=== PATIENT | male | born 1950 | race Two or more races ===

== ENCOUNTER 2017-12-09 19:13 | Inpatient (IN) | payer MEDICARE, MEDICAID ==
[~2017-12-09] VITALS: Ht 167.6 cm; Wt 73.9 kg
[~2017-12-09 19:13] MED LIST: ADALAT20 MG ORAL; ASPIRIN81 MG ORAL; ATORVASTATIN CA40 MG ORAL; ATORVASTATIN CA80 MG ORAL; BACTROBAN 2% OI15 GM TOPIC; BISACODYL5 MG ORAL; CYMBALTA20 MG ORAL; CYMBALTA60 MG ORAL; DOCUSATE SODIU100 MG ORAL; DONEPEZIL HCL10 M2 ORAL; DONEPEZIL HCL10 MG ORAL; FERROUS SULFAT325 MG ORAL; FLONASE ALLERG9.9 ML NS; HALOPERIDOL5 MG ORAL; LANTUS SOL100 UNIT/1 SUBQ; LEVAQUIN500 MG ORAL; MAGNESIUM OXID500 M1 PO; METFORMIN HCL500 M1 ORAL; METRONIDAZ500 MG/100 IVPB; METRONIDAZOLE500 MG ORAL; MULTIVITAMINS1 EAC8 ORAL; NIFEDIPINE ER60 M2 ORAL; NOVOLOG100 UNITS1 SUBQ; PROTONIX IV40 MG IV; PROTONIX20 MG ORAL; PROTONIX40 MG ORAL; QUINAPRIL HCL5 MG PO; TAMSULOSIN HCL0.4 MG ORAL; TYLENOL EXTRA500 MG ORAL; VITAMIN D-32000 UNI1 PO; VITAMIN D400 INTLU ORAL; ZOFRAN4 M3 ORAL; ZOFRAN8 MG ORAL
[2017-12-09] MEDS ORDERED: VITAMIN C500 M1 ORAL (19:29)
[2017-12-09] MEDS ORDERED: LEVEMIR FL100 UNIT/1 SUBQ (19:29)
[2017-12-09] MEDS ORDERED: QUINAPRIL HCL20 MG PO (19:29)
[2017-12-09] MEDS ORDERED: VITAMIN D1000 UNI1 ORAL (19:29)
[2017-12-09] MEDS ORDERED: METFORMIN HCL850 M1 ORAL (19:29)
[2017-12-09 20:50] LABS: BASOPHILS % (AUTO) 0.7 % (0.0-2.0); EOSINOPHILS % (AUTO) 0.9 % (0.0-3.0); HEMATOCRIT 24.7 % (42.0-52.0); HEMOGLOBIN 7.8 G/DL (14.2-18.0); MEAN CORPUSCULAR VOLUME 71 FL (80-99); MONOCYTES % (AUTO) 7.7 % (1.0-10.0); NEUTROPHILS % (AUTO) 87.7 % (45.0-75.0); PLATELET COUNT 229 K/UL (150-450); RED BLOOD COUNT 3.46 M/UL (4.70-6.10); RED CELL DISTRIBUTION WIDTH 15.9 % (11.6-14.8); WHITE BLOOD COUNT 7.1 K/UL (4.8-10.8)
[2017-12-09 20:57] LABS: ANION GAP 5 mmol/L (5-15); BLOOD UREA NITROGEN 13 mg/dL (7-18); CALCIUM 8.1 MG/DL (8.5-10.1); CARBON DIOXIDE 29 MMOL/L (21-32); CHLORIDE 100 MMOL/L (98-107); CREATININE 0.8 MG/DL (0.55-1.30); SODIUM 134 MMOL/L (136-145)
[2017-12-09 21:01] LABS: ALANINE AMINOTRANSFERASE 40 U/L (12-78); ALBUMIN 3.1 G/DL (3.4-5.0); ALBUMIN/GLOBULIN RATIO 0.9 (1.0-2.7); ALKALINE PHOSPHATASE 113 U/L (46-116); ASPARTATE AMINO TRANSFERASE 26 U/L (15-37); BILIRUBIN,TOTAL 0.3 MG/DL (0.2-1.0)
--- NOTE | 2017-12-09 21:06 | Emergency Room Report ---
History of Present Illness General Chief Complaint: Abnormal Labs Source: Medical Record Present Illness HPI 67-year-old male presents to the emergency department sent by PMD for low hemoglobin. Patient is alert however he is not familiar with why he is in the emergency department. Past medical history was obtained from nursing facility face sheet significant for hemiparalysis, Type 2 diabetes- insulin dependent, Anemia, Prostate hyperplasia, GERD and history of GI hemorrhage. Patient denies abdominal pain, blood in the stool, nausea, vomiting or recent fall. Patient reports some weakness. Denies CP, Palpitations, LOC, AMS, dizziness, Changes in Vision, or a sudden severe headache. HPI and ROS is limited due to pt. orientation status. Allergies: Coded Allergies: No Known Allergies (Unverified , 05/25/16) Patient History Limited by: medical condition Past Medical History: see triage record, old chart reviewed, DM, GI bleed Past Surgical History: none Pertinent Family History: none Reviewed Nursing Documentation: PMH: Agreed; PSxH: Agreed Nursing Documentation-PMH Past Medical History: No History, Except For Hx Hypertension: Yes Hx Diabetes: Yes - INSULIN DEPENDENT Hx Cancer: No Hx Gastrointestinal Problems: Yes - GI HEMORRHAGE; ACIDOSIS;ESOPHAGITIS Hx Neurological Problems: Yes - ENCEPHALOPATHY Hx Cerebrovascular Accident: Yes - CEREBRAL INFARCTION (HEMIPLEGIA/HEMPARESIS , LEFT SIDED) Hx Dementia: Yes Review of Systems All Other Systems: limited - limited due to pt. orientation status. Physical Exam Vital Signs Date Time Temp Pulse Resp B/P (MAP) Pulse Ox O2 Delivery O2 Flow Rate FiO2 12/09/17 19:07 97.5 108 18 106/68 98 Room Air 97.5 Sp02 EP Interpretation: reviewed, normal General Appearance: no apparent distress, alert, GCS 15, non-toxic Head: normocephalic, atraumatic Eyes: bilateral eye normal inspection, bilateral eye PERRL ENT: hearing grossly normal, normal voice Neck: full range of motion Respiratory: chest non-tender, lungs clear, normal breath sounds, no respiratory distress, no wheezing, speaking full sentences Cardiovascular #1: regular rate, rhythm, no edema, normal capillary refill Gastrointestinal: normal bowel sounds, non tender, soft Rectal: deferred Genitourinary: normal inspection Musculoskeletal: non-tender, no calf tenderness, decreased range of motion - Left UE > LE Neurologic: alert, responsive, motor strength/tone normal, speech normal - romanian speaking. will answer questions., grossly normal Psychiatric: other - impaired memory. Skin: no rash, warm/dry, other - mildly pale Medical Decision Making PA Attestation Dr. Barrios is my supervising Physician whom patient management has been discussed with. Diagnostic Impression: Primary Impression: Anemia Qualified Codes: D64.9 - Anemia, unspecified Additional Impression: DM type 2 (diabetes mellitus, type 2) Qualified Codes: E11.8 - Type 2 diabetes mellitus with unspecified complications ER Course 67-year-old male presents to the emergency department sent by PMD for low hemoglobin. Patient is alert however he is not familiar with why he is in the emergency department. Past medical history was obtained from nursing facility face sheet significant for hemiparalysis, Type 2 diabetes- insulin dependent, Anemia, Prostate hyperplasia, GERD and history of GI hemorrhage. Patient denies abdominal pain, blood in the stool, nausea, vomiting or recent fall. Patient reports some weakness. Denies CP, Palpitations, LOC, AMS, dizziness, Changes in Vision, or a sudden severe headache. Ddx considered but are not limited to Anemia, acute blood loss, hyperglycemia just to name a few PT. IS FULL CODE Vital signs: are WNL, pt. is afebrile H&PE are most consistent with - hemiparesis, NAD. mildly pale in appearance. ORDERS: -CBC: Hb/ Hct: 7.8 / 24.8 in addition to 3.4 RBC's -CMP: hyperglycemia at 280 -PT/PTT: WNL -Type and Cross: Pt. is type -B Positive ED INTERVENTIONS: - 1 Liter NS @ rate 10ml/HR - 2 units PRBC's- Verbal consent was obtained by via telephone conversation. Filter Helper was utilized in procedure risks were discussed. DISPOSITION: at this time pt. will be admitted to Dr. Morrison for Anemia with need for Emergent Blood Transfusion. Dr. Morrison agreed to admit the pt. and to continue pt. care management. Labs Test 12/09/17 20:00 White Blood Count 7.1 K/UL (4.8-10.8) Red Blood Count 3.46 M/UL (4.70-6.10) Hemoglobin 7.8 G/DL (14.2-18.0) Hematocrit 24.7 % (42.0-52.0) Mean Corpuscular Volume 71 FL (80-99) Mean Corpuscular Hemoglobin 22.7 PG (27.0-31.0) Mean Corpuscular Hemoglobin Concent 31.8 G/DL (32.0-36.0) Red Cell Distribution Width 15.9 % (11.6-14.8) Platelet Count 229 K/UL (150-450) Mean Platelet Volume 8.1 FL (6.5-10.1) Neutrophils (%) (Auto) 87.7 % (45.0-75.0) Lymphocytes (%) (Auto) 32.0 % (20.0-45.0) Monocytes (%) (Auto) 7.7 % (1.0-10.0) Eosinophils (%) (Auto) 0.9 % (0.0-3.0) Basophils (%) (Auto) 0.7 % (0.0-2.0) Prothrombin Time 10.4 SEC (9.30-11.50) Prothromb Time International Ratio 1.0 (0.9-1.1) Activated Partial Thromboplast Time 27 SEC (23-33) Sodium Level 134 MMOL/L (136-145) Potassium Level 4.0 MMOL/L (3.5-5.1) Chloride Level 100 MMOL/L (98-107) Carbon Dioxide Level 29 MMOL/L (21-32) Anion Gap 5 mmol/L (5-15) Blood Urea Nitrogen 13 mg/dL (7-18) Creatinine 0.8 MG/DL (0.55-1.30) Estimat Glomerular Filtration Rate > 60 mL/min (>60) Glucose Level 280 MG/DL (74-106) Calcium Level 8.1 MG/DL (8.5-10.1) Total Bilirubin 0.3 MG/DL (0.2-1.0) Aspartate Amino Transf (AST/SGOT) 26 U/L (15-37) Alanine Aminotransferase (ALT/SGPT) 40 U/L (12-78) Alkaline Phosphatase 113 U/L (46-116) Total Protein 6.4 G/DL (6.4-8.2) Albumin 3.1 G/DL (3.4-5.0) Globulin 3.3 g/dL Albumin/Globulin Ratio 0.9 (1.0-2.7) Last Vital Signs Date Time Temp Pulse Resp B/P (MAP) Pulse Ox O2 Delivery O2 Flow Rate FiO2 12/09/17 19:07 97.5 108 18 106/68 98 Room Air 97.5 Disposition: ADMITTED INPATIENT Condition: Serious Referrals: Ramon Rashid MD (PCP) Vanita Guerrero Dec 09, 2017 21:06
[2017-12-09 23:30] VITALS: BP 106/68
[2017-12-09 23:45] VITALS: BP 107/70
[2017-12-10] MEDS: NovoLOG Insulin Flexpen SUBQ SCH ×4 (06:30→20:53)
[2017-12-10 07:42] LABS: BASOPHILS % (AUTO) 0.8 % (0.0-2.0); HEMATOCRIT 29.9 % (42.0-52.0); HEMOGLOBIN 9.9 G/DL (14.2-18.0); LYMPHOCYTES % (AUTO) 33.4 % (20.0-45.0); MEAN CORPUSCULAR VOLUME 75 FL (80-99); MONOCYTES % (AUTO) 8.5 % (1.0-10.0); NEUTROPHILS % (AUTO) 56.3 % (45.0-75.0); PLATELET COUNT 198 K/UL (150-450); RED BLOOD COUNT 3.97 M/UL (4.70-6.10); RED CELL DISTRIBUTION WIDTH 17.9 % (11.6-14.8); WHITE BLOOD COUNT 7.8 K/UL (4.8-10.8)
[2017-12-10 08:00] VITALS: BP 114/67
[2017-12-10 12:00] VITALS: BP 126/78
[2017-12-10 16:00] VITALS: BP 122/47
[2017-12-10 20:00] VITALS: BP 124/80
--- NOTE | 2017-12-10 23:11 | General Progress Note ---
Assessment/Plan Assessment/Plan Assessment - microcytic anemia - CVA/ Contracted LUE - negative colonoscopy in 2016 Recoomentaion - Transfuse PRN - Monitor labs - check Fe - d/w family in am - EGD/Colon next week Thank you Jocelin Oscar Subjective Allergies: Coded Allergies: No Known Allergies (Unverified , 05/25/16) Objective Last 24 Hour Vital Signs Date Time Temp Pulse Resp B/P (MAP) Pulse Ox O2 Delivery O2 Flow Rate FiO2 12/10/17 20:00 97.0 89 18 124/80 98 97.0 12/10/17 19:03 88 12/10/17 16:00 106 12/10/17 16:00 97.6 102 21 122/47 98 Room Air 97.6 12/10/17 12:00 97.8 103 20 126/78 99 Room Air 97.8 12/10/17 12:00 103 12/10/17 08:00 97.2 103 19 114/67 96 Room Air 97.2 12/10/17 08:00 109 12/10/17 04:17 96 12/10/17 00:31 97.7 95 18 97.7 12/10/17 00:00 97.5 18 107/70 100 Room Air 97.5 12/09/17 23:45 97.5 106 18 107/70 100 Room Air 97.5 12/09/17 23:30 97.5 18 106/68 98 Room Air 97.5 Intake and Output 12/09/17 12/10/17 19:00 07:00 Intake Total 0 ml Balance 0 ml Intake Oral 0 ml # Voids 1 Laboratory Tests 12/10/17 06:40: White Blood Count 7.8, Red Blood Count 3.97L, Hemoglobin 9.9L, Hematocrit 29.9L , Mean Corpuscular Volume 75L, Mean Corpuscular Hemoglobin 25.0L, Mean Corpuscular Hemoglobin Concent 33.2, Red Cell Distribution Width 17.9H, Platelet Count 198, Mean Platelet Volume 6.6, Neutrophils (%) (Auto) 56.3, Lymphocytes (%) (Auto) 33.4, Monocytes (%) (Auto) 8.5, Eosinophils (%) (Auto) 1.0, Basophils (%) (Auto) 0.8 Height (Feet): 5 Height (Inches): 6.00 Weight (Pounds): 163 Objective Debilitated elderly man NCAT supple CTA RRR Soft ND NT (+) LUE constractures responsive DARYN OSCAR Dec 10, 2017 23:11
[2017-12-11] VITALS: BP 133/87
--- NOTE | 2017-12-11 03:15 | History and Physical Report ---
DATE OF ADMISSION: 12/09/2017 REASON FOR ADMISSION: Anemia. HISTORY OF PRESENT ILLNESS: The patient is a poor historian. Denies nausea, vomiting, diarrhea. Denies fever or chills. Denies abdominal pain. Denies shortness of breath. Denies cough, however, he is a poor historian. The patient was admitted for hemoglobin of 7.8. PAST MEDICAL HISTORY: History of NIDDM, history of cholangitis, history of peptic ulcer disease, history of sepsis, history of CVA as well as history of GI hemorrhage as well as history of dementia. PAST SURGICAL HISTORY: Denies. MEDICATIONS: He takes insulin. FAMILY HISTORY: Noncontributory. SOCIAL HISTORY: Poor historian. REVIEW OF SYSTEMS: Poor historian, however, denies pain. Denies shortness of breath. Denies nausea, vomiting, diarrhea, fever, chills. PHYSICAL EXAMINATION: VITAL SIGNS: Temperature 97.7, pulse is 95, blood pressure 114/67. HEENT: PERRLA. NECK: Supple. No lymphadenopathy. CHEST: Clear to auscultation. GASTROINTESTINAL: Soft, nontender, nondistended. Positive bowel sounds. No organomegaly. EXTREMITIES: No edema. LABORATORY DATA: WBC of 7.1, hemoglobin 7.8, platelets 229. Sodium 134, potassium of 4, BUN of 13, creatinine 0.8, glucose 280. ASSESSMENT AND PLAN: Severe anemia. The patient requires transfusion. I have asked Dr. Oscar to see the patient to find out why the patient is anemic, may be it is related to GI bleed. Dr. Gray has been consulted for elevated blood sugar and Dr. Patricia for the hyponatremia. We will monitor the patient closely. Ramon Rashid M.D. DR: Flavia JOB#: [id number] CC:
[2017-12-11 03:45] VITALS: BP 135/85
[2017-12-11] MEDS ORDERED: Sorbitol Solution UD 30ml ORAL ONE ×2 (06:00→18:15)
[2017-12-11] MEDS: NovoLOG Insulin Flexpen SUBQ SCH ×4 (06:25→21:09)
[2017-12-11 08:00] VITALS: BP 147/94
[2017-12-11 08:07] LABS: BASOPHILS % (AUTO) 0.6 % (0.0-2.0); EOSINOPHILS % (AUTO) 0.9 % (0.0-3.0); HEMATOCRIT 34.6 % (42.0-52.0); HEMOGLOBIN 11.4 G/DL (14.2-18.0); LYMPHOCYTES % (AUTO) 23.1 % (20.0-45.0); MEAN CORPUSCULAR VOLUME 75 FL (80-99); MONOCYTES % (AUTO) 6.8 % (1.0-10.0); NEUTROPHILS % (AUTO) 68.6 % (45.0-75.0); PLATELET COUNT 257 K/UL (150-450); RED CELL DISTRIBUTION WIDTH 17.5 % (11.6-14.8); WHITE BLOOD COUNT 7.3 K/UL (4.8-10.8)
[2017-12-11 12:00] VITALS: BP 129/85
--- NOTE | 2017-12-11 12:06 | General Progress Note ---
Assessment/Plan Problem List: (1) Diabetes mellitus out of control ICD Codes: E11.65 - Type 2 diabetes mellitus with hyperglycemia SNOMED: 915811851 (2) DM type 2 (diabetes mellitus, type 2) ICD Codes: E11.9 - Type 2 diabetes mellitus without complications SNOMED: 79116887 Qualifiers: Qualified Codes: E11.8 - Type 2 diabetes mellitus with unspecified complications (3) Anemia ICD Codes: D64.9 - Anemia, unspecified SNOMED: 428360215 Qualifiers: Qualified Codes: D64.9 - Anemia, unspecified Status: progressing Assessment/Plan anemia is improved s/p blood transfusion check h/h afebrile obs Subjective ROS Limited/Unobtainable: Yes Allergies: Coded Allergies: No Known Allergies (Unverified , 05/25/16) Objective Last 24 Hour Vital Signs Date Time Temp Pulse Resp B/P (MAP) Pulse Ox O2 Delivery O2 Flow Rate FiO2 12/11/17 08:00 97.9 78 19 147/94 98 Room Air 97.9 12/11/17 08:00 76 12/11/17 04:00 73 12/11/17 03:45 97.0 70 20 135/85 98 Room Air 97.0 12/11/17 00:00 97.0 83 18 133/87 98 Room Air 97.0 12/10/17 23:39 83 12/10/17 20:00 97.0 89 18 124/80 98 97.0 12/10/17 19:03 88 12/10/17 16:00 106 12/10/17 16:00 97.6 102 21 122/47 98 Room Air 97.6 Intake and Output 12/10/17 12/11/17 19:00 07:00 Intake Total 800 ml Output Total 1200 ml Balance -400 ml Intake Oral 800 ml Output Urine Total 1200 ml # Voids 3 2 Laboratory Tests 12/11/17 07:20: White Blood Count 7.3, Red Blood Count 4.60L, Hemoglobin 11.4L, Hematocrit 34.6L , Mean Corpuscular Volume 75L, Mean Corpuscular Hemoglobin 24.8L, Mean Corpuscular Hemoglobin Concent 33.0, Red Cell Distribution Width 17.5H, Platelet Count 257, Mean Platelet Volume 6.9, Neutrophils (%) (Auto) 68.6, Lymphocytes (%) (Auto) 23.1, Monocytes (%) (Auto) 6.8, Eosinophils (%) (Auto) 0.9, Basophils (%) (Auto) 0.6, Iron Level 33L Height (Feet): 5 Height (Inches): 6.00 Weight (Pounds): 163 General Appearance: confused Cardiovascular: normal rate Respiratory/Chest: lungs clear Ramon Rashid MD Dec 11, 2017 12:06
[2017-12-11 16:00] VITALS: BP 136/80
--- NOTE | 2017-12-11 18:04 | General Progress Note ---
Assessment/Plan Assessment/Plan Assessment - microcytic anemia - CVA/ Contracted LUE - negative colonoscopy in 2016 Recoomentaion - Transfuse PRN - Monitor labs - check Fe - d/w family in am - EGD/Colon wednesday Subjective Allergies: Coded Allergies: No Known Allergies (Unverified , 05/25/16) Subjective (+) BM with prep d/w re w/u of anemia agreed to EGD/Colon for evaluation Objective Last 24 Hour Vital Signs Date Time Temp Pulse Resp B/P (MAP) Pulse Ox O2 Delivery O2 Flow Rate FiO2 12/11/17 16:00 97.8 76 18 136/80 96 Room Air 97.8 12/11/17 12:00 85 12/11/17 12:00 98.0 72 18 129/85 97 Room Air 98.0 12/11/17 08:00 97.9 78 19 147/94 98 Room Air 97.9 12/11/17 08:00 76 12/11/17 04:00 73 12/11/17 03:45 97.0 70 20 135/85 98 Room Air 97.0 12/11/17 00:00 97.0 83 18 133/87 98 Room Air 97.0 12/10/17 23:39 83 12/10/17 20:00 97.0 89 18 124/80 98 97.0 12/10/17 19:03 88 Intake and Output 12/10/17 12/11/17 19:00 07:00 Intake Total 800 ml Output Total 1200 ml Balance -400 ml Intake Oral 800 ml Output Urine Total 1200 ml # Voids 3 2 Laboratory Tests 12/11/17 07:20: White Blood Count 7.3, Red Blood Count 4.60L, Hemoglobin 11.4L, Hematocrit 34.6L , Mean Corpuscular Volume 75L, Mean Corpuscular Hemoglobin 24.8L, Mean Corpuscular Hemoglobin Concent 33.0, Red Cell Distribution Width 17.5H, Platelet Count 257, Mean Platelet Volume 6.9, Neutrophils (%) (Auto) 68.6, Lymphocytes (%) (Auto) 23.1, Monocytes (%) (Auto) 6.8, Eosinophils (%) (Auto) 0.9, Basophils (%) (Auto) 0.6, Iron Level 33L Height (Feet): 5 Height (Inches): 6.00 Weight (Pounds): 163 Objective Debilitated elderly man NCAT supple CTA RRR Soft ND NT (+) LUE contracted responsive DARYN MAHONEY Dec 11, 2017 18:04
[2017-12-11 19:50] LABS: ANION GAP 10 mmol/L (5-15); BLOOD UREA NITROGEN 10 mg/dL (7-18); CALCIUM 8.7 MG/DL (8.5-10.1); CARBON DIOXIDE 26 MMOL/L (21-32); CHLORIDE 100 MMOL/L (98-107); CREATININE 0.9 MG/DL (0.55-1.30); POTASSIUM 3.7 MMOL/L (3.5-5.1); SODIUM 136 MMOL/L (136-145)
[2017-12-11] MEDS: D5 1/2NS w/KCL 10meq 1,000 ML IV SCH (19:58)
[2017-12-11 20:00] VITALS: BP 142/84
[2017-12-11] MEDS ORDERED: Potassium Chloride 10 MEQ in D5 1/2NS 1,000 ML IV SCH (20:00)
--- NOTE | 2017-12-11 21:30 | Consultation ---
DATE OF CONSULTATION: 12/11/2017 ENDOCRINOLOGY CONSULTATION CONSULTING PHYSICIAN: Delvis Gray M.D. REFERRING PHYSICIAN: Ramon Rashid M.D. REASON FOR CONSULTATION: Diabetes management. HISTORY OF PRESENT ILLNESS: It is important to note that history was obtained mostly from review of the chart and medical record since the patient is a poor historian. The patient is a 67-year-old male with past medical history of diabetes, CVA who was sent to the hospital by primary doctor with low hemoglobin. He had a colonoscopy in [address] Kiarra Oscar, manager field service. The patient resides in a snf facility due to hemiparalysis after the CVA. PAST MEDICAL HISTORY: 1. Type 2 diabetes. 2. Hypertension. 3. CVA. PAST SURGICAL HISTORY: None. MEDICATIONS: As an outpatient reviewed and reconciled. FAMILY HISTORY: Diabetes. SOCIAL HISTORY: Resident of a snf facility. No smoking. No alcohol. No drug use. REVIEW OF SYSTEMS: Difficult to obtain due to patient's orientation status. PHYSICAL EXAMINATION: GENERAL: The patient is awake. VITAL SIGNS: Blood pressure is 106/68, heart rate of 90, respiratory rate of 18, and temperature 97.5. HEENT: Pupils are equal and reactive to light and accommodation. Conjunctivae are pale. HEART: Regular. LUNGS: Clear. ABDOMEN: Positive bowel sounds. EXTREMITIES: No clubbing, cyanosis, or edema. LABORATORY VALUES: WBC 7, hemoglobin 11, hematocrit 34.6, and platelets 257. Sodium 134, potassium 4, chloride 100, bicarb 29, BUN 13, creatinine 0.8, and glucose of 280 on presentation. DIAGNOSES: 1. Diabetes, out of control. 2. Anemia status post transfusion. 3. History of CVA. PLAN: As an outpatient, the patient is on basal bolus insulin with Lantus and Humalog. Currently, the patient is on clear liquid diet. Blood glucose are stable in the 100 mg/dL range. I will keep the patient on sliding scale insulin without any scheduled bolus or basal insulin. Further adjustment of insulin regimen will be done according to the diet and blood glucose values. I will follow him during the hospital stay. Thank you, Dr. Rashid, for the courtesy of this consultation. Delvis Gray M.D. DR: MARSHA JOB#: [id number] CC: MIAN
[2017-12-12] VITALS: BP 143/81
[2017-12-12 04:00] VITALS: BP 128/80
[2017-12-12] MEDS: D5 1/2NS w/KCL 10meq 1,000 ML IV SCH ×2 (05:04→16:29)
[2017-12-12] MEDS: NovoLOG Insulin Flexpen SUBQ SCH ×4 (06:10→21:00)
--- NOTE | 2017-12-12 07:13 | General Progress Note ---
Assessment/Plan Problem List: (1) DM type 2 (diabetes mellitus, type 2) ICD Codes: E11.9 - Type 2 diabetes mellitus without complications SNOMED: 83142466 Qualifiers: Qualified Codes: E11.8 - Type 2 diabetes mellitus with unspecified complications (2) Anemia ICD Codes: D64.9 - Anemia, unspecified SNOMED: 825516679 Qualifiers: Qualified Codes: D64.9 - Anemia, unspecified Assessment/Plan colonoscopy and EGD is planned for tomorrow no need for basal insulin continue NISS Subjective ROS Limited/Unobtainable: Yes Allergies: Coded Allergies: No Known Allergies (Unverified , 05/25/16) Subjective events noted interval notes reviewed Objective Last 24 Hour Vital Signs Date Time Temp Pulse Resp B/P (MAP) Pulse Ox O2 Delivery O2 Flow Rate FiO2 12/12/17 04:00 97.3 64 18 128/80 96 Room Air 97.3 12/12/17 04:00 58 12/12/17 00:00 64 12/12/17 00:00 97.5 69 20 143/81 100 Room Air 97.5 12/11/17 20:00 75 12/11/17 20:00 97.0 74 20 142/84 100 Room Air 97.0 12/11/17 16:00 97.8 76 18 136/80 96 Room Air 97.8 12/11/17 16:00 70 12/11/17 12:00 85 12/11/17 12:00 98.0 72 18 129/85 97 Room Air 98.0 12/11/17 08:00 97.9 78 19 147/94 98 Room Air 97.9 12/11/17 08:00 76 Intake and Output 12/11/17 12/12/17 19:00 07:00 Intake Total 996 ml Balance 996 ml IV Total 996 ml # Voids 3 # Bowel Movements 2 Laboratory Tests 12/11/17 07:20: White Blood Count 7.3, Red Blood Count 4.60L, Hemoglobin 11.4L, Hematocrit 34.6L , Mean Corpuscular Volume 75L, Mean Corpuscular Hemoglobin 24.8L, Mean Corpuscular Hemoglobin Concent 33.0, Red Cell Distribution Width 17.5H, Platelet Count 257, Mean Platelet Volume 6.9, Neutrophils (%) (Auto) 68.6, Lymphocytes (%) (Auto) 23.1, Monocytes (%) (Auto) 6.8, Eosinophils (%) (Auto) 0.9, Basophils (%) (Auto) 0.6, Iron Level 33L 12/11/17 19:15: Sodium Level 136, Potassium Level 3.7, Chloride Level 100, Carbon Dioxide Level 26, Anion Gap 10, Blood Urea Nitrogen 10, Creatinine 0.9, Estimat Glomerular Filtration Rate > 60, Glucose Level 159H, Calcium Level 8.7, Magnesium Level 1.9 Height (Feet): 5 Height (Inches): 6.00 Weight (Pounds): 163 General Appearance: no apparent distress EENT: PERRL/EOMI Neck: normal alignment Cardiovascular: normal rate Respiratory/Chest: chest wall non-tender Abdomen: normal bowel sounds Edema: no edema noted Arm (L), no edema noted Arm (R), no edema noted Leg (L), no edema noted Leg (R), no edema noted Pedal (L), no edema noted Pedal (R), no edema noted Generalized Objective Current Medications Medications (Trade) Dose Ordered Sig/Mariza Route PRN Reason Start Time Stop Time Status Last Admin Dose Admin Acetaminophen (Tylenol) 650 mg Q4H PRN ORAL Mild Pain/Temp > 100.5 12/10/17 01:30 01/09/18 01:29 Dextrose (Dextrose 50%) STAT PRN IV Hypoglycemia 12/10/17 01:30 01/09/18 01:29 Dextrose/ Electrolytes 1,000 ml @ 100 mls/hr Q10H IV 12/11/17 19:30 01/10/18 19:29 12/12/17 05:04 Insulin Aspart (NovoLOG) BEFORE MEALS AND HS SUBQ 12/10/17 06:30 01/09/18 06:29 12/12/17 06:10 Item Value Date Time Bedside Blood Glucose 184 mg/dl H 12/12/17 0630 Bedside Blood Glucose 144 mg/dl H 12/11/17 2109 Bedside Blood Glucose 133 mg/dl H 12/11/17 1801 Bedside Blood Glucose 131 mg/dl H 12/11/17 1228 MO MERCADO 25, 2018 07:13
[2017-12-12 08:00] VITALS: BP 134/92
[2017-12-12 08:30] LABS: BASOPHILS % (AUTO) 0.6 % (0.0-2.0); EOSINOPHILS % (AUTO) 0.9 % (0.0-3.0); HEMATOCRIT 32.7 % (42.0-52.0); HEMOGLOBIN 10.9 G/DL (14.2-18.0); LYMPHOCYTES % (AUTO) 21.9 % (20.0-45.0); MEAN CORPUSCULAR VOLUME 76 FL (80-99); MONOCYTES % (AUTO) 6.9 % (1.0-10.0); NEUTROPHILS % (AUTO) 69.6 % (45.0-75.0); PLATELET COUNT 252 K/UL (150-450); RED BLOOD COUNT 4.33 M/UL (4.70-6.10); RED CELL DISTRIBUTION WIDTH 17.4 % (11.6-14.8); WHITE BLOOD COUNT 7.5 K/UL (4.8-10.8)
[2017-12-12 08:49] LABS: ALANINE AMINOTRANSFERASE 40 U/L (12-78); ALBUMIN 3.1 G/DL (3.4-5.0); ALBUMIN/GLOBULIN RATIO 0.8 (1.0-2.7); ALKALINE PHOSPHATASE 92 U/L (46-116); ANION GAP 8 mmol/L (5-15); ASPARTATE AMINO TRANSFERASE 20 U/L (15-37); BILIRUBIN,TOTAL 0.8 MG/DL (0.2-1.0); BLOOD UREA NITROGEN 6 mg/dL (7-18); CARBON DIOXIDE 26 MMOL/L (21-32); CHLORIDE 104 MMOL/L (98-107); CREATININE 0.8 MG/DL (0.55-1.30); POTASSIUM 3.8 MMOL/L (3.5-5.1); SODIUM 138 MMOL/L (136-145)
[2017-12-12] MEDS ORDERED: Tubing IV Blood Pump IV ONE (10:43)
[2017-12-12 12:00] VITALS: BP 143/92
[2017-12-12] MEDS ORDERED: Magnesium Citrate Liq Btl ORAL ONE (13:00)
[2017-12-12] MEDS ORDERED: Bisacodyl EC 5mg tab ORAL ONE (13:00)
[2017-12-12 16:00] VITALS: BP 153/81
--- NOTE | 2017-12-12 16:37 | General Progress Note ---
Assessment/Plan Assessment/Plan Assessment - microcytic anemia - CVA/ Contracted LUE - negative colonoscopy in 2016 Recoomentaion - Transfuse PRN - Monitor labs - check Fe - IVF - EGD/Colon Wednesday Subjective Allergies: Coded Allergies: No Known Allergies (Unverified , 05/25/16) Subjective on clear liquids for EGD/Colon in am No BM today yet got Mag citrate at 1330 Objective Last 24 Hour Vital Signs Date Time Temp Pulse Resp B/P (MAP) Pulse Ox O2 Delivery O2 Flow Rate FiO2 12/12/17 12:00 63 12/12/17 12:00 97.3 63 18 143/92 100 Room Air 97.3 12/12/17 08:00 67 12/12/17 08:00 98.0 68 18 134/92 98 Room Air 98.0 12/12/17 04:00 97.3 64 18 128/80 96 Room Air 97.3 12/12/17 04:00 58 12/12/17 00:00 64 12/12/17 00:00 97.5 69 20 143/81 100 Room Air 97.5 12/11/17 20:00 75 12/11/17 20:00 97.0 74 20 142/84 100 Room Air 97.0 Intake and Output 12/11/17 12/12/17 19:00 07:00 Intake Total 1096 ml Balance 1096 ml IV Total 1096 ml # Voids 3 2 # Bowel Movements 2 1 Laboratory Tests 12/11/17 19:15: Sodium Level 136, Potassium Level 3.7, Chloride Level 100, Carbon Dioxide Level 26, Anion Gap 10, Blood Urea Nitrogen 10, Creatinine 0.9, Estimat Glomerular Filtration Rate > 60, Glucose Level 159H, Calcium Level 8.7, Magnesium Level 1.9 12/12/17 08:03: Sodium Level 138, Potassium Level 3.8, Chloride Level 104, Carbon Dioxide Level 26, Anion Gap 8, Blood Urea Nitrogen 6L, Creatinine 0.8, Estimat Glomerular Filtration Rate > 60, Glucose Level 204H, Calcium Level 8.0L, White Blood Count 7.5, Red Blood Count 4.33L, Hemoglobin 10.9L, Hematocrit 32.7L, Mean Corpuscular Volume 76L, Mean Corpuscular Hemoglobin 25.0L, Mean Corpuscular Hemoglobin Concent 33.1, Red Cell Distribution Width 17.4H, Platelet Count 252, Mean Platelet Volume 6.6, Neutrophils (%) (Auto) 69.6, Lymphocytes (%) (Auto) 21.9, Monocytes (%) (Auto) 6.9, Eosinophils (%) (Auto) 0.9, Basophils (%) (Auto ) 0.6, Total Bilirubin 0.8, Aspartate Amino Transf (AST/SGOT) 20, Alanine Aminotransferase (ALT/SGPT) 40, Alkaline Phosphatase 92, Total Protein 6.8, Albumin 3.1L, Globulin 3.7, Albumin/Globulin Ratio 0.8L Height (Feet): 5 Height (Inches): 6.00 Weight (Pounds): 163 Objective Debilitated elderly man NCAT supple CTA RRR Soft ND NT (+) LUE contracted responsive DARYN MAHONEY Dec 12, 2017 16:37
[2017-12-12 20:00] VITALS: BP 125/80
--- NOTE | 2017-12-12 20:37 | General Progress Note ---
Assessment/Plan Problem List: (1) Diabetes mellitus out of control ICD Codes: E11.65 - Type 2 diabetes mellitus with hyperglycemia SNOMED: 670274874 (2) DM type 2 (diabetes mellitus, type 2) ICD Codes: E11.9 - Type 2 diabetes mellitus without complications SNOMED: 47847184 Qualifiers: Qualified Codes: E11.8 - Type 2 diabetes mellitus with unspecified complications (3) Anemia ICD Codes: D64.9 - Anemia, unspecified SNOMED: 106236405 Qualifiers: Qualified Codes: D64.9 - Anemia, unspecified Status: progressing Assessment/Plan anemia is improved s/p blood transfusion getting endoscoy in am to r/o gi source for anemia Subjective ROS Limited/Unobtainable: Yes Constitutional: Reports: no symptoms Allergies: Coded Allergies: No Known Allergies (Unverified , 05/25/16) Objective Last 24 Hour Vital Signs Date Time Temp Pulse Resp B/P (MAP) Pulse Ox O2 Delivery O2 Flow Rate FiO2 12/12/17 18:45 97.6 12/12/17 17:46 97.6 12/12/17 16:00 97.6 72 20 153/81 98 Room Air 97.6 12/12/17 16:00 69 12/12/17 12:00 63 12/12/17 12:00 97.3 63 18 143/92 100 Room Air 97.3 12/12/17 08:00 67 12/12/17 08:00 98.0 68 18 134/92 98 Room Air 98.0 12/12/17 04:00 97.3 64 18 128/80 96 Room Air 97.3 12/12/17 04:00 58 12/12/17 00:00 64 12/12/17 00:00 97.5 69 20 143/81 100 Room Air 97.5 Intake and Output 12/11/17 12/12/17 19:00 07:00 Intake Total 1096 ml Balance 1096 ml IV Total 1096 ml # Voids 3 2 # Bowel Movements 2 1 Laboratory Tests 12/12/17 08:03: White Blood Count 7.5, Red Blood Count 4.33L, Hemoglobin 10.9L, Hematocrit 32.7L , Mean Corpuscular Volume 76L, Mean Corpuscular Hemoglobin 25.0L, Mean Corpuscular Hemoglobin Concent 33.1, Red Cell Distribution Width 17.4H, Platelet Count 252, Mean Platelet Volume 6.6, Neutrophils (%) (Auto) 69.6, Lymphocytes (%) (Auto) 21.9, Monocytes (%) (Auto) 6.9, Eosinophils (%) (Auto) 0.9, Basophils (%) (Auto) 0.6, Sodium Level 138, Potassium Level 3.8, Chloride Level 104, Carbon Dioxide Level 26, Anion Gap 8, Blood Urea Nitrogen 6L, Creatinine 0.8, Estimat Glomerular Filtration Rate > 60, Glucose Level 204H, Calcium Level 8.0L, Total Bilirubin 0.8, Aspartate Amino Transf (AST/SGOT) 20, Alanine Aminotransferase (ALT/SGPT) 40, Alkaline Phosphatase 92, Total Protein 6.8, Albumin 3.1L, Globulin 3.7, Albumin/Globulin Ratio 0.8L Height (Feet): 5 Height (Inches): 6.00 Weight (Pounds): 163 Cardiovascular: normal rate Respiratory/Chest: lungs clear Abdomen: soft Ramon Rashid MD Dec 12, 2017 20:37
[2017-12-13] VITALS (8 sets, daily range): BP systolic 126–160; BP diastolic 75–91
[2017-12-13] MEDS: D5 1/2NS w/KCL 10meq 1,000 ML IV SCH ×2 (03:12→11:30)
[2017-12-13] MEDS: NovoLOG Insulin Flexpen SUBQ SCH ×2 (06:30→12:09)
--- NOTE | 2017-12-13 08:19 | Anethesia Preoperative Eval ---
Anesthesia Pre-op PMH/ROS General Date of Evaluation: Dec 13, 2017 Time of Evaluation: 08:17 Anesthesiologist: tra ASA Score: ASA 3 Mallampati Score Class I : Soft palate, uvula, fauces, pillars visible Class II: Soft palate, uvula, fauces visible Class III: Soft palate, base of uvula visible Class IV: Only hard plate visible Mallampati Classification: Class II Surgeon: mumtaz Diagnosis: anemia Surgical Procedure: egd/colonoscopy Anesthesia History: none Social History: smoking - former smoker Family History: no anesthesia problems Allergies: Coded Allergies: No Known Allergies (Unverified , 05/25/16) Medications: see eMAR Past Medical History Cardiovascular: Reports: HTN Gastrointestinal/Genitourinary: Reports: GERD Neurologic/Psychiatric: Reports: CVA, depression/anxiety Endocrine: Reports: DM Hematology/Immune: Reports: anemia Anesthesia Pre-op Phys. Exam Physician Exam Last Vital Signs Date Time Temp Pulse Resp B/P (MAP) Pulse Ox O2 Delivery O2 Flow Rate FiO2 12/13/17 04:00 62 12/13/17 04:00 97.0 20 153/91 97 Room Air 97.0 Constitutional: NAD Neurologic: CN 2-12 intact Cardiovascular: RRR Respiratory: CTA Gastrointestinal: S/NT/ND Airway Exam Mallampati Score: Class II MO: full Neck: supple TMD: 2fb ROM: limited Anesthesia Pre-op A/P Risk Assessment & Plan Assessment: asa3 Plan: mac Status Change Before Surgery: No Pre-Antibiotics Drug: DHARMESH Yanes Dec 13, 2017 08:19
[2017-12-13] MEDS ORDERED: Midazolam 2mg/2ml Inj IVP PRN (08:30)
[2017-12-13] MEDS ORDERED: DiphenhydrAMINE 50mg/ml Inj IVP PRN (08:30)
[2017-12-13] MEDS ORDERED: Atropine Inj 1mg/10ml Syr IV PRN (08:30)
[2017-12-13] MEDS ORDERED: fentaNYL 100 mcg/2 mL IV PRN (08:30)
[2017-12-13] MEDS ORDERED: MULTIVITAMINS1 EAC8 ORAL (09:28)
[2017-12-13] MEDS ORDERED: PROTONIX40 MG ORAL (09:28)
[2017-12-13] MEDS ORDERED: ADALAT20 MG ORAL (09:28)
[2017-12-13] MEDS ORDERED: ATORVASTATIN CA40 MG ORAL (09:28)
[2017-12-13] MEDS ORDERED: TAMSULOSIN HCL0.4 MG ORAL (09:28)
[2017-12-13] MEDS ORDERED: QUINAPRIL HCL20 MG PO (09:28)
[2017-12-13] MEDS ORDERED: CYMBALTA20 MG ORAL (09:28)
[2017-12-13] MEDS ORDERED: DONEPEZIL HCL10 MG ORAL (09:28)
[2017-12-13] MEDS ORDERED: VITAMIN C500 M1 ORAL (09:28)
[2017-12-13] MEDS ORDERED: ASPIRIN-LOW81 MG ORAL (09:28)
[2017-12-13] MEDS ORDERED: VITAMIN D400 INTLU ORAL (09:28)
[2017-12-13] MEDS ORDERED: METFORMIN HCL850 M1 ORAL (09:28)
[2017-12-13] MEDS ORDERED: FERROUS SULFAT325 MG ORAL (09:28)
[2017-12-13] MEDS ORDERED: DOCUSATE SODIU100 MG ORAL (09:28)
[2017-12-13] MEDS ORDERED: LEVEMIR100 UNIT/1 SUBQ ×2 (09:28)
[2017-12-13] MEDS ORDERED: BISACODYL5 MG ORAL (09:28)
[2017-12-13] MEDS ORDERED: Propofol 200mg/20ml IV ONE (10:00)
[2017-12-13] MEDS ORDERED: Lidocaine 1% MPF 10mg/ml 5ml ONE (10:00)
--- NOTE | 2017-12-13 10:37 | Pre-Procedure Note/Attestation ---
Pre-Procedure Note/Attestation Complete Prior to Procedure Planned Procedure: not applicable Procedure Narrative: EGD/Colon Indications for Procedure Pre-Operative Diagnosis: Anemia Attestation I attest that I discussed the nature of the procedure; its benefits; risks and complications; and alternatives (and the risks and benefits of such alternatives ), prior to the procedure, with the patient (or the patient's legal business office representative). I attest that, if there was a reasonable possibility of needing a blood transfusion, the patient (or the patient's legal business office representative) was given the [facility] standardized written summary, pursuant to the José Nike[employer] Blood Safety Act ([place] Health and Safety Code # 1645, as amended). I attest that I re-evaluated the patient just prior to the surgery and that there has been no change in the patient's H&P, except as documented below: DARYN MAHONEY Dec 13, 2017 10:37
[2017-12-13] MEDS ORDERED: NS 500ML IV ONE (10:38)
--- NOTE | 2017-12-13 11:43 | Immediate Post-Op Evaluation ---
Immediate Post-Op Evalulation Immediate Post-Op Evalulation Procedure: egd/colonoscopy Date of Evaluation: Dec 13, 2017 Time of Evaluation: 11:37 IV Fluids: 250ml 0.9ns Blood Products: none Estimated Blood Loss: negligible Blood Pressure Systolic: 127 Blood Pressure Diastolic: 76 Pulse Rate: 53 Respiratory Rate: 18 O2 Sat by Pulse Oximetry: 100 Temperature (Fahrenheit): 97.0 Pain Score (1-10): 0 Nausea: No Vomiting: No Complications none Patient Status: awake, reacts, patent Hydration Status: adequate Drug: DHARMESH Yanes Dec 13, 2017 11:43
--- NOTE | 2017-12-13 11:44 | 48 Hour Post Anesthesia Eval ---
Post Anesthesia Evaluation Procedure: egd/colonoscopy Date of Evaluation: Dec 13, 2017 Time of Evaluation: 11:43 Blood Pressure Systolic: 125 0: 77 Pulse Rate: 56 Respiratory Rate: 18 Temperature (Fahrenheit): 97.0 O2 Sat by Pulse Oximetry: 100 Airway: patent Nausea: No Vomiting: No Pain Intensity: 0 Hydration Status: adequate Cardiopulmonary Status: stable Mental Status/LOC: patient returned to baseline Post-Anesthesia Complications: none Follow-up care needed: N/A DHARMESH KUHN Dec 13, 2017 11:44
--- NOTE | 2017-12-13 13:14 | General Progress Note ---
Assessment/Plan Problem List: (1) Diabetes mellitus out of control ICD Codes: E11.65 - Type 2 diabetes mellitus with hyperglycemia SNOMED: 433189283 (2) DM type 2 (diabetes mellitus, type 2) ICD Codes: E11.9 - Type 2 diabetes mellitus without complications SNOMED: 60670120 Qualifiers: Qualified Codes: E11.8 - Type 2 diabetes mellitus with unspecified complications (3) Anemia ICD Codes: D64.9 - Anemia, unspecified SNOMED: 381395195 Qualifiers: Qualified Codes: D64.9 - Anemia, unspecified Status: progressing Assessment/Plan anemia is improved s/p blood transfusion s/p endoscopy cleared by gi for dc Subjective ROS Limited/Unobtainable: Yes Constitutional: Reports: no symptoms Allergies: Coded Allergies: No Known Allergies (Unverified , 05/25/16) Objective Last 24 Hour Vital Signs Date Time Temp Pulse Resp B/P (MAP) Pulse Ox O2 Delivery O2 Flow Rate FiO2 12/13/17 12:00 97.0 59 18 126/75 98 97.0 12/13/17 11:50 97.8 58 17 144/77 100 Nasal Cannula 3.0 97.8 12/13/17 11:44 206.6 56 18 100 12/13/17 11:43 206.6 53 18 100 12/13/17 11:35 52 16 142/77 100 Nasal Cannula 3.0 12/13/17 11:30 60 15 155/89 100 Nasal Cannula 3.0 12/13/17 11:25 97.0 55 14 127/76 100 Nasal Cannula 3.0 97.0 12/13/17 08:00 97.7 64 19 160/90 99 97.7 12/13/17 07:58 60 12/13/17 04:00 62 12/13/17 04:00 97.0 65 20 153/91 97 Room Air 97.0 12/13/17 00:00 97.2 66 20 133/77 98 Room Air 97.2 12/13/17 00:00 62 12/12/17 20:00 97.0 64 20 125/80 99 Room Air 97.0 12/12/17 20:00 62 12/12/17 18:45 97.6 12/12/17 17:46 97.6 12/12/17 16:00 97.6 72 20 153/81 98 Room Air 97.6 3/25/18 16:00 69 Intake and Output 12/12/17 12/13/17 19:00 07:00 Intake Total 1280 ml 1100 ml Balance 1280 ml 1100 ml Intake Oral 1080 ml IV Total 200 ml 1100 ml # Voids 4 2 # Bowel Movements 3 1 Laboratory Tests 12/12/17 17:50: Stool Occult Blood Positive 12/13/17 12:50: Iron Level [Pending], Unsaturated Iron Binding [Pending], Ferritin [Pending] Height (Feet): 5 Height (Inches): 6.00 Weight (Pounds): 163 Cardiovascular: normal rate Respiratory/Chest: lungs clear Ramon Rashid MD Dec 13, 2017 13:14
--- NOTE | 2017-12-13 13:26 | General Progress Note ---
Assessment/Plan Problem List: (1) DM type 2 (diabetes mellitus, type 2) ICD Codes: E11.9 - Type 2 diabetes mellitus without complications SNOMED: 95771533 Qualifiers: Qualified Codes: E11.8 - Type 2 diabetes mellitus with unspecified complications (2) Anemia ICD Codes: D64.9 - Anemia, unspecified SNOMED: 158882329 Qualifiers: Qualified Codes: D64.9 - Anemia, unspecified Assessment/Plan no need for basal insulin yet continue NISS Subjective ROS Limited/Unobtainable: Yes Allergies: Coded Allergies: No Known Allergies (Unverified , 05/25/16) Subjective events noted interval notes reviewed Objective Last 24 Hour Vital Signs Date Time Temp Pulse Resp B/P (MAP) Pulse Ox O2 Delivery O2 Flow Rate FiO2 12/13/17 12:00 97.0 59 18 126/75 98 97.0 12/13/17 11:50 97.8 58 17 144/77 100 Nasal Cannula 3.0 97.8 12/13/17 11:44 206.6 56 18 100 12/13/17 11:43 206.6 53 18 100 12/13/17 11:35 52 16 142/77 100 Nasal Cannula 3.0 12/13/17 11:30 60 15 155/89 100 Nasal Cannula 3.0 12/13/17 11:25 97.0 55 14 127/76 100 Nasal Cannula 3.0 97.0 12/13/17 08:00 97.7 64 19 160/90 99 97.7 12/13/17 07:58 60 12/13/17 04:00 62 12/13/17 04:00 97.0 65 20 153/91 97 Room Air 97.0 12/13/17 00:00 97.2 66 20 133/77 98 Room Air 97.2 12/13/17 00:00 62 12/12/17 20:00 97.0 64 20 125/80 99 Room Air 97.0 12/12/17 20:00 62 12/12/17 18:45 97.6 12/12/17 17:46 97.6 12/12/17 16:00 97.6 72 20 153/81 98 Room Air 97.6 12/12/17 16:00 69 Intake and Output 12/12/17 12/13/17 19:00 07:00 Intake Total 1280 ml 1100 ml Balance 1280 ml 1100 ml Intake Oral 1080 ml IV Total 200 ml 1100 ml # Voids 4 2 # Bowel Movements 3 1 Laboratory Tests 12/12/17 17:50: Stool Occult Blood Positive 12/13/17 12:50: Iron Level [Pending], Unsaturated Iron Binding [Pending], Ferritin [Pending] Height (Feet): 5 Height (Inches): 6.00 Weight (Pounds): 163 General Appearance: no apparent distress Neck: normal alignment Cardiovascular: normal rate Respiratory/Chest: lungs clear Abdomen: normal bowel sounds Edema: no edema noted Arm (L), no edema noted Arm (R), no edema noted Leg (L), no edema noted Leg (R), no edema noted Pedal (L), no edema noted Pedal (R), no edema noted Generalized Objective Current Medications Medications (Trade) Dose Ordered Sig/Mariza Route PRN Reason Start Time Stop Time Status Last Admin Dose Admin Acetaminophen (Tylenol) 650 mg Q4H PRN ORAL Mild Pain/Temp > 100.5 12/10/17 01:30 01/09/18 01:29 12/12/17 17:46 Al Hydroxide/Mg Hydroxide (Mylanta) 15 ml Q1H PRN ORAL gi upset 12/13/17 08:30 12/13/17 15:00 Atropine Sulfate (Atropine) 0.5 mg Q5M PRN IV bpm less than 45 12/13/17 08:30 12/13/17 15:00 Dextrose (Dextrose 50%) STAT PRN IV Hypoglycemia 12/10/17 01:30 01/09/18 01:29 Dextrose/ Electrolytes 1,000 ml @ 100 mls/hr Q10H IV 12/11/17 19:30 01/10/18 19:29 12/13/17 03:12 Diphenhydramine HCl (Benadryl) 25 mg Q15M PRN IVP Itching 12/13/17 08:30 12/13/17 15:00 Divalproex Sodium (Depakote) 250 mg TID ORAL 12/12/17 18:00 01/11/18 17:59 12/12/17 17:46 Fentanyl Citrate (Sublimaze 100 mcg/2 mL) 25 mcg Q10M PRN IV Moderate Pain (Pain Scale 4-6) 12/13/17 08:30 12/13/17 15:00 Ferrous Sulfate (Feosol) 325 mg DAILY ORAL 12/14/17 09:00 01/13/18 08:59 Hydralazine HCl (Apresoline) 5 mg Q30M PRN IV SBP>160 OR___/DBP>90 OR___ 12/13/17 08:30 12/13/17 15:00 Insulin Aspart (NovoLOG) BEFORE MEALS AND HS SUBQ 12/10/17 06:30 01/09/18 06:29 12/13/17 12:09 Midazolam HCl (Versed 2mg/2ml vial) 1 mg Q15M PRN IVP For Anxiety 12/13/17 08:30 12/13/17 15:00 Ondansetron HCl (Zofran) 4 mg Q1H PRN IVP Nausea & Vomiting 12/13/17 08:30 12/13/17 15:00 Pantoprazole (Protonix) 40 mg DAILY ORAL 12/14/17 09:00 01/13/18 08:59 Item Value Date Time Bedside Blood Glucose 142 mg/dl H 12/13/17 1209 Bedside Blood Glucose 150 mg/dl H 12/13/17 0630 Bedside Blood Glucose 172 mg/dl H 12/12/17 2100 Bedside Blood Glucose 95 mg/dl 12/12/17 1630 Bedside Blood Glucose 195 mg/dl H 12/12/17 1222 MO MERCADO 26, 2018 13:26
[2017-12-13 13:40] LABS: IRON 20 ug/dL (50-175); TOTAL IRON BINDING CAPACITY 308 ug/dL (250-450)
[2017-12-13 13:41] LABS: % IRON SATURATION 6 % (15-50)
[2017-12-13 13:54] LABS: FERRITIN 12 NG/ML (8-388)
--- NOTE | 2017-12-13 22:08 | Brief Operative Note ---
Immediate Post Operative Note Operative Note Chief Complaint: anemia Pre-op Diagnosis: Anemia Procedure: EGD/bc, colon Post-op Diagnosis: HH, mild RAQUEL, normal colon bx duoden Surgeon: mumtaz Anesthesiologist: geno padilla Anesthesia: MAC Specimen: yes Complications: none Condition: stable Fluids: recorded Estimated Blood Loss: none Drains: none Implant(s) used?: No DARYN MAHONEY Dec 13, 2017 22:08
--- NOTE | 2017-12-13 22:10 | Endoscopy Procedure Note ---
Endoscopy Procedure Note General Indication for Procedure: anemia Procedures Performed: EGD, colonoscopy Operative Findings/Diagnosis: HH, mild RAQUEL, normal colon bx duoden Specimen: yes Pt Tolerated Procedure Well: Yes Estimated Blood Loss: none Anesthesia Anesthesiologist: geno padilla Anesthesia: MAC Medications Medication Given: see anesthesia record Inserted Devices Implant(s) used?: No GI Core Measures 50 yrs or older w/o bx or poly: Not Applicable 10yrs. F/U not recommended: Not Applicable If not recommended, why?: DARYN MAHONEY Dec 13, 2017 22:10
--- NOTE | 2017-12-13 22:21 | Consultation ---
History of Present Illness General Date patient seen: Dec 11, 2017 Chief Complaint: Abnormal Labs Present Illness HPI 67-year-old male presents to the emergency department sent by PMD for low hemoglobin. the pt was agitated and confused. not able to provide hx Allergies: Coded Allergies: No Known Allergies (Unverified , 05/25/16) Medication History Scheduled Ascorbic Acid* (Vitamin C*), 500 MG ORAL DAILY, (Reported) Aspirin (Aspirin EC), 81 MG ORAL DAILY, (Reported) Atorvastatin Calcium* (Atorvastatin Calcium*), 80 MG ORAL DAILY, (Reported) Docusate Sodium* (Docusate Sodium*), 100 MG ORAL Q12HR, (Reported) Donepezil Hcl* (Donepezil Hcl*), 10 MG ORAL QHS, (Reported) Duloxetine (Cymbalta), 80 MG ORAL DAILY, (Reported) Ferrous Sulfate* (Ferrous Sulfate*), 325 MG ORAL DAILY, (Reported) Insulin Detemir (Levemir), 14 UNITS SUBQ DAILY, (Reported) Insulin Detemir (Levemir), 30 UNITS SUBQ BEDTIME, (Reported) Metformin Hcl* (Metformin Hcl*), 850 MG ORAL BID, (Reported) Multivitamin With Minerals (Multivitamins With Minerals*), 1 TAB ORAL DAILY, ( Reported) Nifedipine (Nifedipine*), 60 MG ORAL EVERY 8 HOURS, (Reported) Pantoprazole* (Protonix*), 40 MG ORAL DAILY, (Reported) Quinapril Hcl (Quinapril Hcl), 20 MG PO BID, (Reported) Tamsulosin Hcl (Tamsulosin Hcl*), 0.4 MG ORAL DAILY, (Reported) Vitamin D (Vitamin D3), 1,000 UNITS ORAL DAILY, (Reported) Scheduled PRN Bisacodyl* (Dulcolax*), 5 MG ORAL DAILY PRN for Constipation, (Reported) Discontinued Medications Acetaminophen* (Tylenol Extra Strength*), 500 MG ORAL Q4HR PRN for Mild Pain/ Temp > 100.5, (Reported) Discontinued Reason: MD discontinued med Ascorbic Acid* (Vitamin C*), 500 MG ORAL DAILY, (Reported) Discontinued Reason: MD discontinued med Aspirin* (Aspirin*), 81 MG ORAL DAILY, (Reported) Discontinued Reason: MD discontinued med Atorvastatin Calcium* (Atorvastatin Calcium*), 80 MG ORAL BEDTIME, (Reported) Discontinued Reason: MD discontinued med Bisacodyl* (Dulcolax*), 5 MG ORAL DAILY, (Reported) Discontinued Reason: MD discontinued med Cholecalciferol (Vitamin D3)* (Vitamin D*), 1,000 UNIT ORAL DAILY, (Reported) Discontinued Reason: MD discontinued med Docusate Sodium* (Docusate Sodium*), 100 MG ORAL TWICE A DAY, (Reported) Discontinued Reason: MD discontinued med Donepezil Hcl* (Donepezil Hcl*), 10 MG ORAL QHS, (Reported) Discontinued Reason: MD discontinued med Duloxetine Hcl* (Cymbalta*), 80 MG ORAL DAILY, (Reported) Discontinued Reason: MD discontinued med Ferrous Sulfate* (Ferrous Sulfate*), 325 MG ORAL DAILY, (Reported) Discontinued Reason: MD discontinued med Fluticasone Propionate (Flonase Allergy Relief), 9.9 ML NS DAILY, (Reported) Discontinued Reason: MD discontinued med Insulin Aspart (Novolog Flexpen), SUBQ AC+HS PRN for Per rx protocol, (Reported) Discontinued Reason: MD discontinued med Insulin Detemir (Levemir Flexpen), 0 SUBQ, (Reported) Discontinued Reason: MD discontinued med Insulin Glargine (Lantus), 12 UNITS SUBQ BEDTIME, (Reported) Discontinued Reason: MD discontinued med Levofloxacin* (Levaquin*), 500 MG ORAL DAILY, (Reported) Discontinued Reason: MD discontinued med Metformin Hcl* (Metformin Hcl*), 500 MG ORAL TWICE A DAY, (Reported) Discontinued Reason: MD discontinued med Metformin Hcl* (Metformin Hcl*), 850 MG ORAL BID, (Reported) Discontinued Reason: MD discontinued med Metronidazole* (Flagyl*), 500 MG ORAL THREE TIMES A DAY, (Reported) Discontinued Reason: MD discontinued med Multivitamin With Minerals (Multivitamins With Minerals*), 1 TAB ORAL DAILY, ( Reported) Discontinued Reason: MD discontinued med Mupirocin (Mupirocin), 1 APPLIC TOPIC THREE TIMES A DAY, (Reported) Discontinued Reason: MD discontinued med Nifedipine (Nifedipine*), 60 MG ORAL DAILY, (Reported) Discontinued Reason: MD discontinued med Ondansetron Hcl* (Zofran*), 4 MG ORAL EVERY 8 HOURS PRN for Nausea & Vomiting, ( Reported) Discontinued Reason: MD discontinued med Pantoprazole* (Protonix*), 40 MG ORAL DAILY, (Reported) Discontinued Reason: MD discontinued med Quinapril Hcl (Quinapril Hcl), 5 MG PO BID, (Reported) Discontinued Reason: MD discontinued med Quinapril Hcl (Quinapril Hcl), 5 MG PO BID, (Reported) Discontinued Reason: MD discontinued med Quinapril Hcl (Quinapril Hcl), 20 MG PO BID, (Reported) Discontinued Reason: MD discontinued med Tamsulosin Hcl (Tamsulosin Hcl*), 0.4 MG ORAL BEDTIME, (Reported) Discontinued Reason: MD discontinued med Vitamin D (Vitamin D3), 2,000 UNITS ORAL DAILY, (Reported) Discontinued Reason: MD discontinued med Patient History Limited by: medical condition History Provided By: Patient, Medical Record, PMD Healthcare decision maker Resuscitation status Full Code Advanced Directive on File No Past Medical/Surgical History Past Medical/Surgical History: (1) Sepsis (2) Peptic ulcer disease (3) Anemia due to acute blood loss (4) Coffee ground emesis (5) Leukocytosis (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) (8) Cholangitis due to bile duct calculus with obstruction (9) Diabetes mellitus out of control Review of Systems Psychiatric: Reports: prior hx, anxiety, depressed feelings Physical Exam General Appearance: no apparent distress, alert, confused, agitated Last 24 Hour Vital Signs Date Time Temp Pulse Resp B/P (MAP) Pulse Ox O2 Delivery O2 Flow Rate FiO2 12/13/17 12:00 97.0 59 18 126/75 98 97.0 12/13/17 11:50 97.8 58 17 144/77 100 Nasal Cannula 3.0 97.8 12/13/17 11:44 206.6 56 18 100 12/13/17 11:43 206.6 53 18 100 12/13/17 11:35 52 16 142/77 100 Nasal Cannula 3.0 12/13/17 11:30 60 15 155/89 100 Nasal Cannula 3.0 12/13/17 11:25 97.0 55 14 127/76 100 Nasal Cannula 3.0 97.0 12/13/17 08:00 97.7 64 19 160/90 99 97.7 12/13/17 07:58 60 12/13/17 04:00 62 12/13/17 04:00 97.0 65 20 153/91 97 Room Air 97.0 12/13/17 00:00 97.2 66 20 133/77 98 Room Air 97.2 12/13/17 00:00 62 Intake and Output 12/12/17 12/13/17 19:00 07:00 Intake Total 1280 ml 1100 ml Balance 1280 ml 1100 ml Intake Oral 1080 ml IV Total 200 ml 1100 ml # Voids 4 2 # Bowel Movements 3 1 Laboratory Tests Test 12/13/17 12:50 Iron Level 20 ug/dL (50-175) L Total Iron Binding Capacity 308 ug/dL (250-450) Percent Iron Saturation 6 % (15-50) L Unsaturated Iron Binding 288 ug/dL (112-346) Ferritin 12 NG/ML (8-388) Height (Feet): 5 Height (Inches): 6.00 Weight (Pounds): 163 Assessment/Plan Status: unchanged Assessment/Plan encephalopathy agitation depakote 250mg tid Olivia Ortega M.D. Dec 13, 2017 22:21
--- NOTE | 2017-12-13 22:31 | General Progress Note ---
Assessment/Plan Status: unchanged Assessment/Plan encephalopathy agitation depakote 250mg tid Subjective Date patient seen: Dec 12, 2017 Neurologic/Psychiatric: Reports: anxiety, depressed, emotional problems Allergies: Coded Allergies: No Known Allergies (Unverified , 05/25/16) Objective Last 24 Hour Vital Signs Date Time Temp Pulse Resp B/P (MAP) Pulse Ox O2 Delivery O2 Flow Rate FiO2 12/13/17 12:00 97.0 59 18 126/75 98 97.0 12/13/17 11:50 97.8 58 17 144/77 100 Nasal Cannula 3.0 97.8 12/13/17 11:44 206.6 56 18 100 12/13/17 11:43 206.6 53 18 100 12/13/17 11:35 52 16 142/77 100 Nasal Cannula 3.0 12/13/17 11:30 60 15 155/89 100 Nasal Cannula 3.0 12/13/17 11:25 97.0 55 14 127/76 100 Nasal Cannula 3.0 97.0 12/13/17 08:00 97.7 64 19 160/90 99 97.7 12/13/17 07:58 60 12/13/17 04:00 62 12/13/17 04:00 97.0 65 20 153/91 97 Room Air 97.0 12/13/17 00:00 97.2 66 20 133/77 98 Room Air 97.2 12/13/17 00:00 62 Intake and Output 12/12/17 12/13/17 19:00 07:00 Intake Total 1280 ml 1100 ml Balance 1280 ml 1100 ml Intake Oral 1080 ml IV Total 200 ml 1100 ml # Voids 4 2 # Bowel Movements 3 1 Laboratory Tests 12/13/17 12:50: Iron Level 20L, Total Iron Binding Capacity 308, Percent Iron Saturation 6L, Unsaturated Iron Binding 288, Ferritin 12 Height (Feet): 5 Height (Inches): 6.00 Weight (Pounds): 163 General Appearance: alert, confused, agitated, combative Olivia Ortega M.D. Dec 13, 2017 22:31
--- NOTE | 2017-12-13 22:32 | General Progress Note ---
Assessment/Plan Status: stable, progressing Assessment/Plan encephalopathy agitation depakote 250mg tid Subjective Date patient seen: Dec 13, 2017 Neurologic/Psychiatric: Reports: anxiety, depressed, emotional problems Allergies: Coded Allergies: No Known Allergies (Unverified , 05/25/16) Objective Last 24 Hour Vital Signs Date Time Temp Pulse Resp B/P (MAP) Pulse Ox O2 Delivery O2 Flow Rate FiO2 12/13/17 12:00 97.0 59 18 126/75 98 97.0 12/13/17 11:50 97.8 58 17 144/77 100 Nasal Cannula 3.0 97.8 12/13/17 11:44 206.6 56 18 100 12/13/17 11:43 206.6 53 18 100 12/13/17 11:35 52 16 142/77 100 Nasal Cannula 3.0 12/13/17 11:30 60 15 155/89 100 Nasal Cannula 3.0 12/13/17 11:25 97.0 55 14 127/76 100 Nasal Cannula 3.0 97.0 12/13/17 08:00 97.7 64 19 160/90 99 97.7 12/13/17 07:58 60 12/13/17 04:00 62 12/13/17 04:00 97.0 65 20 153/91 97 Room Air 97.0 12/13/17 00:00 97.2 66 20 133/77 98 Room Air 97.2 12/13/17 00:00 62 Intake and Output 12/12/17 12/13/17 19:00 07:00 Intake Total 1280 ml 1100 ml Balance 1280 ml 1100 ml Intake Oral 1080 ml IV Total 200 ml 1100 ml # Voids 4 2 # Bowel Movements 3 1 Laboratory Tests 12/13/17 12:50: Iron Level 20L, Total Iron Binding Capacity 308, Percent Iron Saturation 6L, Unsaturated Iron Binding 288, Ferritin 12 Height (Feet): 5 Height (Inches): 6.00 Weight (Pounds): 163 General Appearance: no apparent distress, alert, confused, agitated Olivia Ortega M.D. Dec 13, 2017 22:32
--- NOTE | 2017-12-14 17:30 | Procedure Note ---
DATE OF PROCEDURE: 12/13/2017 NOTE: POOR AUDIO GASTROENTEROLOGY PROCEDURE REPORT PROCEDURE: Upper gastrointestinal endoscopy with biopsy as well as colonoscopy. SURGEON: Kiarra Oscar M.D. ANESTHESIA: Please see the separate anesthesiologist notes for details. PRE-ENDOSCOPIC DIAGNOSIS: Progressive anemia. POST-ENDOSCOPIC DIAGNOSES: 1. A 3 to 4 cm hiatal hernia. 2. Lower esophageal reflux erosions consistent with gastroesophageal reflux. 3. Normal colonoscopy including 10 cm of terminal ileum, although visualization was somewhat suboptimal. DESCRIPTION OF PROCEDURE: The procedure, its risks, indications, alternatives, and possible complications were explained to the patient's and informed consent was obtained. The patient was then sedated in the left lateral decubitus position. A diagnostic upper endoscope was introduced into the oropharynx and advanced to the duodenum. The endoscope was then gradually withdrawn. The rectal exam was done and the colonoscope was introduced in the rectum and advanced to the terminal ileum. The examination of the colonic mucosa was hampered by small clumps of solid stools throughout the colon, especially on the right side. Large mass lesions could be ruled out, but smaller lesions can escape evaluation. Evaluation of the upper gastrointestinal mucosa revealed a 4 cm hiatal hernia with some reflux related erosions and the colonoscopy and terminal ileum evaluation did not show any abnormalities. The patient was sent to recovery in good condition. COMPLICATIONS: None. ASSESSMENT: This examination was notable for some degree of gastroesophageal reflux associated with hiatal hernia. Occasionally, large hiatal hernias could result in long-term reflux and that could be the possibility in this case. An outpatient capsule endoscopy should be done to evaluate the small bowel for any other pathology such as arteriovenous malformations of the small intestine. RECOMMENDATIONS: 1. Resume oral diet. 2. Long-term proton pump inhibitor. 3. Iron daily. 4. Outpatient capsule endoscopy. Thank you for asking me to participate in the care of this patient. Kiarra Oscar M.D. DR: Echo JOB#: [id number] CC: MIAN
--- NOTE | 2017-12-16 07:53 | Discharge Summary ---
Discharge Summary Hospital Course Date of Admission Dec 09, 2017 at 21:01 Date of Discharge Dec 13, 2017 at 15:38 Admitting Diagnosis ANEMIA HPI Manjit Wilkerson is a 67 year old male who was admitted on Dec 09, 2017 at 21:01 for Anemia Hospital Course dc summary # [id number] Discharge Medications Continued Medications: Ascorbic Acid* (Vitamin C*) 500 Mg Tablet 500 MG ORAL DAILY, #30 TAB 0 Refills (This prescription has been renewed) Aspirin (Aspirin EC) 81 Mg Tablet.dr 81 MG ORAL DAILY, TAB (This prescription has been renewed) Atorvastatin Calcium* (Atorvastatin Calcium*) 40 Mg Tablet 80 MG ORAL DAILY, TAB (This prescription has been renewed) Bisacodyl* (Dulcolax*) 5 Mg Tablet.dr 5 MG ORAL DAILY PRN for Constipation, #10 TAB 0 Refills (This prescription has been renewed) Docusate Sodium* (Docusate Sodium*) 100 Mg Capsule 100 MG ORAL Q12HR, CAP (This prescription has been renewed) Donepezil Hcl* (Donepezil Hcl*) 10 Mg Tablet 10 MG ORAL QHS, TAB (This prescription has been renewed) Duloxetine (Cymbalta) 20 Mg Capsule.dr 80 MG ORAL DAILY, CAP (This prescription has been renewed) Ferrous Sulfate* (Ferrous Sulfate*) 325 Mg Tablet 325 MG ORAL DAILY, #30 TAB 0 Refills (This prescription has been renewed) Insulin Detemir (Levemir) 100 Unit/1 Ml Vial 14 UNITS SUBQ DAILY, VIAL (This prescription has been renewed) Insulin Detemir (Levemir) 100 Unit/1 Ml Vial 30 UNITS SUBQ BEDTIME, VIAL (This prescription has been renewed) Metformin Hcl* (Metformin Hcl*) 850 Mg Tablet 850 MG ORAL BID, TAB (This prescription has been renewed) Multivitamin With Minerals (Multivitamins With Minerals*) 1 Each Tablet 1 TAB ORAL DAILY, TAB (This prescription has been renewed) Nifedipine (Nifedipine*) 20 Mg Capsule 60 MG ORAL EVERY 8 HOURS, CAP (This prescription has been renewed) Pantoprazole* (Protonix*) 40 Mg Tablet.dr 40 MG ORAL DAILY, TAB (This prescription has been renewed) Quinapril Hcl (Quinapril Hcl) 20 Mg Tablet 20 MG PO BID, TAB (This prescription has been renewed) Tamsulosin Hcl (Tamsulosin Hcl*) 0.4 Mg Cap.er.24h 0.4 MG ORAL DAILY, CAP (This prescription has been renewed) Vitamin D (Vitamin D3) 400 Unit Tablet 1000 UNITS ORAL DAILY, TAB (This prescription has been renewed) Discharge Condition Upon Discharge: stable Discharge Disposition Patient was discharged to [facility] (04) Discharge Instructions Discharge Instructions Special Instructions I have been assigned to complete a D/C Summary on this account. I was not involved in the patient management Radha Barboza NP ([place]) Dec 16, 2017 07:53
--- NOTE | 2017-12-16 22:45 | Discharge Summary 2 SIG ---
DATE OF ADMISSION: 12/09/2017 DATE OF DISCHARGE: 12/13/2017 REASON FOR ADMISSION: 67-year-old male, resident of the [facility] , with past medical history significant for hypertension, diabetes, peptic ulcer disease, CVA, GERD, and anemia, was sent by his medical doctor for evaluation due to low hemoglobin. Upon evaluation in the emergency room, the patient was afebrile. Vital signs were stable, except mild tachycardia - 108, pulse oximetry was stable on room air. Hemoglobin 7.8, hematocrit 24.7, and MCV 71. Glucose 280. Electrolytes and renal parameters were stable. The patient was admitted with diagnosis of severe anemia and diabetes. In the emergency department, the patient was given 1 liter of fluid and received order for transfusion of 2 units of packed red blood cells. CONSULTANTS: Dr. Oscar, GI specialist; Dr. Gray, differential repairer; Dr. Ortega, psychiatrist. HOSPITAL STAY: The patient admitted to telemetry floor. The patient undergone transfusion of 2 units of packed red blood cells. Anemia workup initiated. GI seen and evaluated the patient. Anemia workup was consistent with iron deficiency anemia. The patient started on IV iron and PPI. Stool OB x1 was positive. The patient subsequently undergone EGD and colonoscopy, which revealed hiatal hernia, mild GERD, and normal colonoscopy. GI recommended to resume diet, continue PPI and iron supplement. GI also recommended outpatient capsule endoscopy to evaluate small bowel for any abnormality such as arteriovenous malformation of small intestine. Joint Finisher seen and evaluated the patient. Blood sugar was managed with sliding scale of insulin. No need for basal insulin as per differential repairer. Psychiatrist seen and evaluated the patient, diagnosed the patient with encephalopathy and agitation. Psychiatric medication regimen was optimized. Pain management provided. Antiemetics were on board as needed. Bowel regimen instituted. The patient was stable for discharge back to [facility]. FINAL DIAGNOSES: 1. Severe anemia, iron deficiency, requiring blood transfusion. 2. Diabetes mellitus type 2. 3. Encephalopathy. 4. Agitation. DISCHARGE MEDICATIONS: See medication reconciliation list. DISCHARGE INSTRUCTIONS: The patient discharged to [facility]. FOLLOWUP: Follow up with medical doctor at the facility. Ramon Rashid M.D. I have been assigned to dictate discharge summary on this account and I was not involved in the patient's management. Radha FalkCatskill Regional Medical Centervandana N.PJerald DR: SLOANE JOB#: [id number] CC: MIAN
== END 2017-12-13 15:38 | DRG 811 ==
LOC: EDBD 19:13 → EMR 19:25 → 2E 21:01 → EDBEDREQ 22:27 → 2E 23:13
PROC: 30233N1 Transfusion of Nonautologous Red Blood Cells into Peripheral Vein, Percutaneous Approach (ICD-10-PCS; principal; 2017-12-09)
PROC: 0DJD8ZZ Inspection of Lower Intestinal Tract, Via Natural or Artificial Opening Endoscopic (ICD-10-PCS; 2017-12-13 10:45)
PROC: 0DJ08ZZ Inspection of Upper Intestinal Tract, Via Natural or Artificial Opening Endoscopic (ICD-10-PCS; 2017-12-13 10:45)
DX: D50.9 Iron deficiency anemia, unspecified (principal); G93.40 Encephalopathy, unspecified; E87.1 Hypo-osmolality and hyponatremia; E11.65 Type 2 diabetes mellitus with hyperglycemia; I10 Essential (primary) hypertension; R45.1 Restlessness and agitation; Z79.4 Long term (current) use of insulin; Z86.73 Personal history of transient ischemic attack (TIA), and cerebral infarction without residual deficits; K44.9 Diaphragmatic hernia without obstruction or gangrene; K21.9 Gastro-esophageal reflux disease without esophagitis; Z87.11 Personal history of peptic ulcer disease
CPT/HCPCS: 36415; 80048; 80053; 82270; 82728; 82962; 83540; 83550; 83735; 85025; 85610; 85730; 86850; 86900; 86901; 86920; 94003; 94150; 99285; J1815

== ENCOUNTER 2018-08-22 13:10 | Inpatient (IN) | payer MEDICARE, MEDICAID ==
[~2018-08-22] VITALS: Ht 167.6 cm; Wt 68.5 kg
[~2018-08-22 13:10] MED LIST changes: +ASPIRIN-LOW81 MG ORAL; +LEVEMIR FL100 UNIT/1 SUBQ; +LEVEMIR100 UNIT/1 SUBQ; +METFORMIN HCL850 M1 ORAL; +QUINAPRIL HCL20 MG PO; +VITAMIN C500 M1 ORAL; +VITAMIN D1000 UNI1 ORAL
[2018-08-22 13:15] VITALS: BP 136/85
[2018-08-22] MEDS ORDERED: Isovue-300 100ml vial INJ PRN (13:30)
[2018-08-22 14:10] LABS: BASOPHILS % (AUTO) 0.4 % (0.0-2.0); EOSINOPHILS % (AUTO) 0.3 % (0.0-3.0); HEMATOCRIT 41.8 % (42.0-52.0); LYMPHOCYTES % (AUTO) 11.4 % (20.0-45.0); MEAN CORPUSCULAR VOLUME 74 FL (80-99); MONOCYTES % (AUTO) 4.3 % (1.0-10.0); NEUTROPHILS % (AUTO) 83.7 % (45.0-75.0); PLATELET COUNT 247 K/UL (150-450); RED BLOOD COUNT 5.61 M/UL (4.70-6.10); RED CELL DISTRIBUTION WIDTH 12.2 % (11.6-14.8); WHITE BLOOD COUNT 12.6 K/UL (4.8-10.8)
[2018-08-22 14:22] LABS: ANION GAP 10 mmol/L (5-15); BLOOD UREA NITROGEN 9 mg/dL (7-18); CALCIUM 9.1 MG/DL (8.5-10.1); CARBON DIOXIDE 26 MMOL/L (21-32); CHLORIDE 99 MMOL/L (98-107); CREATININE 0.9 MG/DL (0.55-1.30); POTASSIUM 4.1 MMOL/L (3.5-5.1); SODIUM 135 MMOL/L (136-145)
[2018-08-22 14:27] LABS: ALANINE AMINOTRANSFERASE 37 U/L (12-78); ALBUMIN 3.6 G/DL (3.4-5.0); ALBUMIN/GLOBULIN RATIO 0.8 (1.0-2.7); ALKALINE PHOSPHATASE 181 U/L (46-116); ASPARTATE AMINO TRANSFERASE 18 U/L (15-37); BILIRUBIN,TOTAL 0.4 MG/DL (0.2-1.0)
--- NOTE | 2018-08-22 14:55 | Emergency Room Report ---
History of Present Illness General Chief Complaint: Abnormal Labs Source: Patient (Andrey Gonzalez MD) Present Illness HPI 67-year-old male presents ED for evaluation. Brought in by EMS for elevated blood sugar. Coming from [facility] facility. Accu-Chek greater than 300. Upon arrival patient showing no signs of distress. Nonverbal at baseline. Patient told nursing staff he's been having abdominal pain as well. Patient points to right lower quadrant. Nonradiating. Unable to provide any additional history at this time. No nausea or vomiting. No fevers or chills. No chest pain shortness of breath. No other aggravating relieving factors. Denies any other associated symptoms (Andrey Gonzalez MD) Allergies: Coded Allergies: No Known Allergies (Unverified , 05/25/16) Patient History Past Medical History: DM, HTN, CVA/TIA Past Surgical History: none Pertinent Family History: none Social History: Denies: smoking, alcohol use, drug use Immunizations: UTD Reviewed Nursing Documentation: PMH: Agreed; PSxH: Agreed (Andrey Gonzalez MD) Nursing Documentation-PMH Past Medical History: No History, Except For Hx Cardiac Problems: Yes Hx Hypertension: Yes Hx Diabetes: Yes Hx Cancer: No Hx Gastrointestinal Problems: No Hx Neurological Problems: Yes Hx Cerebrovascular Accident: Yes Hx Transient Ischemic Attacks: No Hx Dementia: No Hx Alzheimer's Disease: No Hx Parkinson's Disease: No Hx Meningitis: No Hx Encephalitis: No Hx Seizures: No Hx Epilepsy: No Hx Multiple Sclerosis: No Hx Cerebral Palsy: No Hx Amyotrophic Lat Sclerosis: No Hx Weakness: Yes Hx Neurologic Surgery: No Hx Brain Shunt: No (Andrey Gonzalez MD) Review of Systems All Other Systems: limited (Andrey Gonzalez MD) Physical Exam Vital Signs Date Time Temp Pulse Resp B/P (MAP) Pulse Ox O2 Delivery O2 Flow Rate FiO2 08/22/18 13:06 98.4 112 20 138/85 94 Sp02 EP Interpretation: reviewed, normal General Appearance: no apparent distress, other - nonverbal Head: normocephalic, atraumatic Eyes: bilateral eye normal inspection, bilateral eye PERRL ENT: hearing grossly normal, normal pharynx, no angioedema, normal voice Neck: full range of motion, supple/symm/no masses Respiratory: chest non-tender, lungs clear, normal breath sounds, speaking full sentences Cardiovascular #1: regular rate, rhythm, no edema Cardiovascular #2: 2+ carotid (R), 2+ carotid (L), 2+ radial (R), 2+ radial (L) , 2+ dorsalis pedis (R), 2+ dorsalis pedis (L) Gastrointestinal: normal bowel sounds, soft, non-distended, no guarding, no rebound, tenderness - RLQ Rectal: deferred Genitourinary: normal inspection, no CVA tenderness Musculoskeletal: back normal, gait/station normal, normal range of motion, non- tender Neurologic: other - nonverbal Psychiatric: other - nonverbal Reflexes: 3+ bicep (R), 3+ bicep (L), 3+ tricep (R), 3+ tricep (L), 3+ knee (R) , 3+ knee (L) Skin: normal color, no rash, warm/dry, well hydrated Lymphatic: no adenopathy (Andrey Gonzalez MD) Medical Decision Making Diagnostic Impression: Primary Impression: Diabetes mellitus out of control Labs Test 08/22/18 13:31 White Blood Count 12.6 K/UL (4.8-10.8) Red Blood Count 5.61 M/UL (4.70-6.10) Hemoglobin 14.0 G/DL (14.2-18.0) Hematocrit 41.8 % (42.0-52.0) Mean Corpuscular Volume 74 FL (80-99) Mean Corpuscular Hemoglobin 25.0 PG (27.0-31.0) Mean Corpuscular Hemoglobin Concent 33.6 G/DL (32.0-36.0) Red Cell Distribution Width 12.2 % (11.6-14.8) Platelet Count 247 K/UL (150-450) Mean Platelet Volume 6.7 FL (6.5-10.1) Neutrophils (%) (Auto) 83.7 % (45.0-75.0) Lymphocytes (%) (Auto) 11.4 % (20.0-45.0) Monocytes (%) (Auto) 4.3 % (1.0-10.0) Eosinophils (%) (Auto) 0.3 % (0.0-3.0) Basophils (%) (Auto) 0.4 % (0.0-2.0) Sodium Level 135 MMOL/L (136-145) Potassium Level 4.1 MMOL/L (3.5-5.1) Chloride Level 99 MMOL/L (98-107) Carbon Dioxide Level 26 MMOL/L (21-32) Anion Gap 10 mmol/L (5-15) Blood Urea Nitrogen 9 mg/dL (7-18) Creatinine 0.9 MG/DL (0.55-1.30) Estimat Glomerular Filtration Rate > 60 mL/min (>60) Glucose Level 360 MG/DL (74-106) Calcium Level 9.1 MG/DL (8.5-10.1) Magnesium Level 1.3 MG/DL (1.8-2.4) Total Bilirubin 0.4 MG/DL (0.2-1.0) Aspartate Amino Transf (AST/SGOT) 18 U/L (15-37) Alanine Aminotransferase (ALT/SGPT) 37 U/L (12-78) Alkaline Phosphatase 181 U/L (46-116) Total Protein 8.4 G/DL (6.4-8.2) Albumin 3.6 G/DL (3.4-5.0) Globulin 4.8 g/dL Albumin/Globulin Ratio 0.8 (1.0-2.7) Lipase 244 U/L (73-393) Acetone Level Negative (NEGATIVE) (Andrey Gonzalez MD) CT/MRI/US Diagnostic Results CT/MRI/US Diagnostic Results : Imaging Test Ordered: CT abd/pelvis Impression Limited assessment of the GI tract. No gross acute abnormality. Cholelithiasis. See official report for other incidental findings. ([facility]. ) Last Vital Signs Date Time Temp Pulse Resp B/P (MAP) Pulse Ox O2 Delivery O2 Flow Rate FiO2 08/22/18 13:06 98.4 112 20 138/85 94 (Andrey Gonzalez MD) Referrals: Ramon Rashid MD (PCP) Andrey Gonzalez MD Aug 22, 2018 14:55 [facility] Aug [facility], 2018 16:54
[2018-08-22 15:00] VITALS: BP 121/83
[2018-08-22] MEDS ORDERED: Omnipaque-300 100ml vial INJ ONE (15:02)
[2018-08-22 15:52] LABS: APPEARANCE,URINE CLEAR; BILIRUBIN, URINE NEGATIVE (NEGATIVE); COLOR,URINE PALE YELLOW; GLUCOSE, URINE (UA) 4+ (NEGATIVE); KETONES,URINE 2+ (NEGATIVE); LEUKOCYTE ESTERASE ,URINE NEGATIVE (NEGATIVE); NITRITE,URINE NEGATIVE (NEGATIVE); PH,URINE 6.5 (4.5-8.0); PROTEIN,URINE NEGATIVE (NEGATIVE); UROBILINOGEN,URINE NORMAL MG/DL (0.0-1.0)
--- NOTE | 2018-08-22 16:22 | Diagnostic Imaging Report ---
Clinical Indication: Abdominal pain, right lower quadrant Technique: No oral contrast utilized, per emergency room physician request IV administration nonionic contrast. Venous phase spiral acquisition obtained through the abdomen and pelvis. Multiplanar reconstructions were generated. Total dose length product 911.44 mGycm. CTDIvol(s) 16.14 mGy. Dose reduction achieved using automated exposure control Comparison: No comparison CTs. Reference made to abdomen MRI dated 06/01/2016 and abdominal ultrasound dated 05/29/2016 Findings: Lack of enteric contrast limits assessment of the GI tract. The appendix is normal. No evidence of diverticulosis or diverticulitis. There are bilateral inguinal hernias that contain only fat. No small bowel distention. No free or loculated intraperitoneal gas or fluid is evident. The distal esophagus, stomach, duodenum are unremarkable. The gallbladder contains gallstones. It is not distended and there is no gallbladder wall thickening. The liver is mildly hypoattenuating. No focal abnormality demonstrated. The extra hepatic bile ducts are mildly ectatic, measuring up to 7 mm diameter. No downstream obstructive lesion demonstrated. The pancreas, spleen, adrenals, right kidney are unremarkable. The with kidneys demonstrate subcentimeter low-attenuation lesions which are too small to characterize. No renal or ureteral calculi, hydronephrosis, or hydroureter demonstrated. The bladder is unremarkable. The prostate is somewhat prominent, contains calcifications. No pelvic mass or adenopathy. No retroperitoneal or mesenteric mass or adenopathy. There is a retroaortic left renal vein incidentally noted. The included lung bases are clear. The bones demonstrate degenerative spondylosis changes. Impression: Limited assessment of the GI tract, due to lack of enteric contrast administration No gross acute abnormality Cholelithiasis, also previously described Mildly fatty liver Note that prior MRI described an area of signal abnormality, suspected mass, in segment 4A of the liver. This is not evident on the current CT so significance of this previous finding is uncertain Mild prostatomegaly Bilateral subcentimeter low-attenuation renal lesions, too small to characterize, most likely benign simple cortical cysts Incidental findings as noted, including degenerative spondylosis, retroaortic left renal vein, bilateral fat-containing inguinal hernias, prostatic calcification The CT scanner at [facility] is accredited by the [employer] and the scans are performed using protocols designed to limit radiation exposure to as low as reasonably achievable to attain images of sufficient resolution adequate for diagnostic evaluation.
[2018-08-22 17:00] VITALS: BP_SYST 123; BP_SYST 139; BP_DIAS 72; BP_DIAS 80
[2018-08-22] MEDS ORDERED: Bisacodyl EC 5mg tab ORAL PRN (19:00)
[2018-08-22] MEDS ORDERED: Milk of Magnesia 30ml Ud ORAL PRN ×2 (19:00→20:30)
[2018-08-22] MEDS ORDERED: Sennosides 8.6mg tab ORAL PRN (19:00)
[2018-08-22 19:51] VITALS: BP 122/71
[2018-08-22] MEDS: Docusate 100mg cap ORAL SCH (20:48)
[2018-08-22] MEDS: Donepezil 10mg tab ORAL SCH (20:48)
[2018-08-22] MEDS: NovoLOG Insulin Flexpen SUBQ SCH (20:49)
[2018-08-22] MEDS ORDERED: Atorvastatin 80mg tab ORAL SCH (21:00)
[2018-08-23] VITALS: BP 94/72
[2018-08-23 04:00] VITALS: BP 153/99
[2018-08-23] MEDS: NovoLOG Insulin Flexpen SUBQ SCH ×6 (05:56→21:20)
[2018-08-23 06:43] LABS: HEMATOCRIT 38.8 % (42.0-52.0); MEAN CORPUSCULAR VOLUME 74 FL (80-99); PLATELET COUNT 240 K/UL (150-450); RED BLOOD COUNT 5.28 M/UL (4.70-6.10); RED CELL DISTRIBUTION WIDTH 11.9 % (11.6-14.8); WHITE BLOOD COUNT 16.2 K/UL (4.8-10.8)
[2018-08-23 07:05] LABS: ALANINE AMINOTRANSFERASE 31 U/L (12-78); ALBUMIN 3.4 G/DL (3.4-5.0); ALBUMIN/GLOBULIN RATIO 0.8 (1.0-2.7); ALKALINE PHOSPHATASE 136 U/L (46-116); ANION GAP 10 mmol/L (5-15); ASPARTATE AMINO TRANSFERASE 17 U/L (15-37); BILIRUBIN,TOTAL 1.1 MG/DL (0.2-1.0); BLOOD UREA NITROGEN 6 mg/dL (7-18); CALCIUM 8.5 MG/DL (8.5-10.1); CARBON DIOXIDE 25 MMOL/L (21-32); CHLORIDE 98 MMOL/L (98-107); CREATININE 0.6 MG/DL (0.55-1.30); POTASSIUM 3.6 MMOL/L (3.5-5.1); SODIUM 133 MMOL/L (136-145)
[2018-08-23 07:08] LABS: BILIRUBIN,DIRECT 0.2 MG/DL (0.0-0.3)
[2018-08-23 08:00] VITALS: BP 161/95
[2018-08-23 08:45] VITALS: BP 153/91
[2018-08-23] MEDS ORDERED: Ascorbic Acid 500mg tab ORAL SCH (09:00)
[2018-08-23] MEDS ORDERED: Docusate 100mg cap ORAL SCH (09:00)
[2018-08-23] MEDS ORDERED: Tamsulosin 0.4mg cap ORAL SCH (09:00)
[2018-08-23] MEDS ORDERED: Vitamin D 1000 IU Tab ORAL SCH (09:00)
[2018-08-23] MEDS ORDERED: Levemir Flexpen SUBQ SCH (09:00)
[2018-08-23] MEDS: Docusate 100mg cap ORAL SCH (09:09)
[2018-08-23] MEDS: Aspirin EC 81mg tab ORAL SCH (09:09)
[2018-08-23] MEDS: Multivitamin w/Minerals tab ORAL SCH (09:09)
[2018-08-23] MEDS: Sennosides 8.6mg tab ORAL SCH (09:09)
[2018-08-23] MEDS: Heparin 5000 units/ml inj SUBQ SCH ×2 (09:11→21:19)
--- NOTE | 2018-08-23 11:33 | Consultation ---
Consult Note Consult Note 67-year-old male presents ED for evaluation. Brought in by EMS for elevated blood sugar. Coming from [facility] facility. Accu-Chek greater than 300. Upon arrival patient showing no signs of distress. Nonverbal at baseline. Patient told nursing staff he's been having abdominal pain as well. Patient points to right lower quadrant. Nonradiating. Unable to provide any additional history at this time. No nausea or vomiting. No fevers or chills. No chest pain shortness of breath. No other aggravating relieving factors. Denies any other associated symptoms No Known Allergies (Unverified , 05/25/16) Past Medical History: DM, HTN, CVA/TIA Past Medical History: No History, Except For Hx Cardiac Problems: Yes Hx Hypertension: Yes Hx Diabetes: Yes Hx Neurological Problems: Yes Hx Cerebrovascular Accident: Yes Hx Weakness: Yes [id number] data reviewed Assessment/Plan DM OOC HTN CVA BS control BP control Monitor renal parameters Kiran Patricia MD Aug 23, 2018 11:33
[2018-08-23] MEDS ORDERED: Metoprolol Tartrate 12.5mg TAB ORAL SCH (11:45)
[2018-08-23] MEDS ORDERED: Lisinopril 10mg tab ORAL SCH (11:45)
[2018-08-23 12:00] VITALS: BP 126/93
[2018-08-23] MEDS ORDERED: Haloperidol Decanoate 50mg Inj IM SCH (12:00)
[2018-08-23 12:04] LABS: CHOLESTEROL 80 MG/DL (< 200); HDL CHOLESTEROL 37 MG/DL (40-60); PHOSPHORUS 3.2 MG/DL (2.5-4.9); TRIGLYCERIDES 58 MG/DL (30-150)
[2018-08-23] MEDS ORDERED: Gadavist 7.5mMol/7.5ml vial IV PRN (14:00)
--- NOTE | 2018-08-23 14:52 | Diagnostic Imaging Report ---
Indication: Chest pain Technique: One view of the chest Comparison: 05/25/2016 Findings: Previously demonstrated right basilar atelectasis is no longer evident. Inspiration is suboptimal. Lungs pleural spaces are clear. The heart size is upper limits of normal. The aorta is tortuous and calcified. Impression: No acute process
--- NOTE | 2018-08-23 15:55 | GI Initial Consult Note ---
History of Present Illness General Date patient seen: Aug 23, 2018 Time patient seen: 16:40 Reason for Hospitalization: Abnormal Labs Referring physician: MIMI OJEDA Reason for Consultation: ABDOMINAL PAIN Present Illness HPI 67-year-old male presents ED for evaluation. Brought in by EMS for elevated blood sugar. Coming from long term facility. Accu-Chek greater than 300. Upon arrival patient showing no signs of distress. Nonverbal at baseline. Patient told nursing staff he's been having abdominal pain as well. Patient points to right lower quadrant. Nonradiating. Unable to provide any additional history at this time. No nausea or vomiting. No fevers or chills. No chest pain shortness of breath. No other aggravating relieving factors. Denies any other associated symptoms GI consulted for abdominal pain, noted liver mass on previous MRI. ROS limited , patient is lethargic unable to provide any history at this time. He presents with abdominal pain, possible liver mass as seen on past MRI. Labs reviewed show mild anemia, electrolyte imbalance and elevated glucose levels. Unknown history of endoscopy / colonoscopy at this time. Home Meds Reported Medications Vitamin D (Vitamin D3) 400 Unit Tablet, 1000 UNITS ORAL DAILY, TAB 12/13/17 Ascorbic Acid* (VITAMIN C*) 500 Mg Tablet, 500 MG ORAL DAILY, #30 TAB 0 Refills 12/13/17 Quinapril Hcl (QUINAPRIL HCL) 20 Mg Tablet, 20 MG PO BID, TAB 12/13/17 Pantoprazole* (PROTONIX*) 40 Mg Tablet.dr, 40 MG ORAL DAILY, TAB 12/13/17 Nifedipine (Nifedipine*) 20 Mg Capsule, 60 MG ORAL EVERY 8 HOURS, CAP 12/13/17 Multivitamin With Minerals (MULTIVITAMINS WITH MINERALS*) 1 Each Tablet, 1 TAB ORAL DAILY, TAB 12/13/17 Metformin Hcl* (METFORMIN HCL*) 850 Mg Tablet, 850 MG ORAL BID, TAB 12/13/17 Insulin Detemir (LEVEMIR) 100 Unit/1 Ml Vial, 30 UNITS SUBQ BEDTIME, VIAL 12/13/17 Insulin Detemir (LEVEMIR) 100 Unit/1 Ml Vial, 14 UNITS SUBQ DAILY, VIAL 12/13/17 Tamsulosin Hcl (TAMSULOSIN HCL*) 0.4 Mg Cap.er.24h, 0.4 MG ORAL DAILY, CAP 12/13/17 Ferrous Sulfate* (FERROUS SULFATE*) 325 Mg Tablet, 325 MG ORAL DAILY, #30 TAB 0 Refills 12/13/17 Donepezil Hcl* (DONEPEZIL HCL*) 10 Mg Tablet, 10 MG ORAL QHS, TAB 12/13/17 Docusate Sodium* (DOCUSATE SODIUM*) 100 Mg Capsule, 100 MG ORAL Q12HR, CAP 12/13/17 Duloxetine (Cymbalta) 20 Mg Capsule.dr, 80 MG ORAL DAILY, CAP 12/13/17 Bisacodyl* (DULCOLAX*) 5 Mg Tablet.dr, 5 MG ORAL DAILY PRN for Constipation, # 10 TAB 0 Refills 12/13/17 Atorvastatin Calcium* (ATORVASTATIN CALCIUM*) 40 Mg Tablet, 80 MG ORAL DAILY, TAB 12/13/17 Aspirin (Aspirin EC) 81 Mg Tablet.dr, 81 MG ORAL DAILY, TAB 12/13/17 Med list reviewed/reconciled: Yes Allergies: Coded Allergies: No Known Allergies (Unverified , 05/25/16) Patient History Limited by: medical condition History Provided By: Patient, Medical Record PMH Narrative Past Medical History: DM, HTN, CVA/TIA Past Surgical History: none Pertinent Family History: none Social History: Denies: smoking, alcohol use, drug use Immunizations: UTD Reviewed Nursing Documentation: PMH: Agreed; PSxH: Agreed Nursing Documentation-PMH Past Medical History: No History, Except For Hx Cardiac Problems: Yes Hx Hypertension: Yes Hx Diabetes: Yes Hx Cancer: No Hx Gastrointestinal Problems: No Hx Neurological Problems: Yes Hx Cerebrovascular Accident: Yes Hx Transient Ischemic Attacks: No Hx Dementia: No Hx Alzheimer's Disease: No Hx Parkinson's Disease: No Hx Meningitis: No Hx Encephalitis: No Hx Seizures: No Hx Epilepsy: No Hx Multiple Sclerosis: No Hx Cerebral Palsy: No Hx Amyotrophic Lat Sclerosis: No Hx Weakness: Yes Hx Neurologic Surgery: No Hx Brain Shunt: No Review of Systems All Other Systems: limited Physical Exam Vital Signs Date Time Temp Pulse Resp B/P (MAP) Pulse Ox O2 Delivery O2 Flow Rate FiO2 08/22/18 13:06 98.4 112 20 138/85 94 08/22/18 15:00 Room Air Sp02 EP Interpretation: reviewed, normal Labs Laboratory Tests Test 08/23/18 06:10 White Blood Count 16.2 K/UL (4.8-10.8) H Red Blood Count 5.28 M/UL (4.70-6.10) Hemoglobin 13.0 G/DL (14.2-18.0) L Hematocrit 38.8 % (42.0-52.0) L Mean Corpuscular Volume 74 FL (80-99) L Mean Corpuscular Hemoglobin 24.6 PG (27.0-31.0) L Mean Corpuscular Hemoglobin Concent 33.4 G/DL (32.0-36.0) Red Cell Distribution Width 11.9 % (11.6-14.8) Platelet Count 240 K/UL (150-450) Mean Platelet Volume 7.2 FL (6.5-10.1) Neutrophils (%) (Auto) % (45.0-75.0) Lymphocytes (%) (Auto) % (20.0-45.0) Monocytes (%) (Auto) % (1.0-10.0) Eosinophils (%) (Auto) % (0.0-3.0) Basophils (%) (Auto) % (0.0-2.0) Differential Total Cells Counted 100 Neutrophils % (Manual) 82 % (45-75) H Lymphocytes % (Manual) 9 % (20-45) L Monocytes % (Manual) 8 % (1-10) Eosinophils % (Manual) 0 % (0-3) Basophils % (Manual) 0 % (0-2) Band Neutrophils 1 % (0-8) Platelet Estimate Adequate Platelet Morphology Normal Hypochromasia 1+ Microcytosis 1+ Sodium Level 133 MMOL/L (136-145) L Potassium Level 3.6 MMOL/L (3.5-5.1) Chloride Level 98 MMOL/L (98-107) Carbon Dioxide Level 25 MMOL/L (21-32) Anion Gap 10 mmol/L (5-15) Blood Urea Nitrogen 6 mg/dL (7-18) L Creatinine 0.6 MG/DL (0.55-1.30) Estimat Glomerular Filtration Rate > 60 mL/min (>60) Glucose Level 222 MG/DL (74-106) #H Hemoglobin A1c 9.7 % (4.3-6.0) H Uric Acid 2.2 MG/DL (2.6-7.2) L Calcium Level 8.5 MG/DL (8.5-10.1) Phosphorus Level 3.2 MG/DL (2.5-4.9) Magnesium Level 1.4 MG/DL (1.8-2.4) L Total Bilirubin 1.1 MG/DL (0.2-1.0) H Direct Bilirubin 0.2 MG/DL (0.0-0.3) Aspartate Amino Transf (AST/SGOT) 17 U/L (15-37) Alanine Aminotransferase (ALT/SGPT) 31 U/L (12-78) Alkaline Phosphatase 136 U/L (46-116) H C-Reactive Protein, Quantitative 5.0 mg/dL (0.00-0.90) H Total Protein 7.9 G/DL (6.4-8.2) Albumin 3.4 G/DL (3.4-5.0) Globulin 4.5 g/dL Albumin/Globulin Ratio 0.8 (1.0-2.7) L Triglycerides Level 58 MG/DL (30-150) Cholesterol Level 80 MG/DL (< 200) LDL Cholesterol 44 mg/dL (<100) HDL Cholesterol 37 MG/DL (40-60) L Cholesterol/HDL Ratio 2.2 (3.3-4.4) L Vitamin B12 Level 301 PG/ML (193-986) Thyroid Stimulating Hormone (TSH) 1.683 uiU/mL (0.358-3.740) General Appearance: well appearing, no apparent distress, lethargic Head: normocephalic EENT: PERRL/EOMI, normal ENT inspection Neck: supple Respiratory: normal breath sounds, no respiratory distress Cardiovascular: normal rate Gastrointestinal: normal inspection, non tender, soft, normal bowel sounds, non -distended Rectal: deferred Genitourinary: deferred Musculoskeletal: normal inspection, back normal Neurologic: alert, responsive Psychiatric: normal inspection, judgement/insight normal, memory normal Skin: normal inspection, normal color, no rash, warm/dry, palpation normal, well hydrated Lymphatic: normal inspection, no adenopathy Current Medications Current Medications Medications (Trade) Dose Ordered Sig/Mariza Route PRN Reason Start Time Stop Time Status Last Admin Dose Admin Aspirin (Ecotrin) 81 mg DAILY ORAL 08/23/18 09:00 09/22/18 08:59 08/23/18 09:09 Atorvastatin Calcium (Lipitor) 20 mg QHS ORAL 08/23/18 21:00 09/21/18 20:59 Bisacodyl (Dulcolax) 5 mg DAILYPRN PRN ORAL Constipation 08/22/18 19:00 09/21/18 18:59 Ceftriaxone Sodium 1 gm/ Dextrose 55 ml @ 110 mls/hr Q24H IVPB 08/23/18 13:00 08/30/18 12:59 Dextrose (Dextrose 50%) 25 ml Q30M PRN IV Hypoglycemia 08/23/18 07:45 09/22/18 07:44 Dextrose (Dextrose 50%) 50 ml Q30M PRN IV Hypoglycemia 08/23/18 07:45 09/22/18 07:44 Docusate Sodium (Colace) 100 mg TIDPRN ORAL 08/24/18 09:00 09/21/18 20:59 Donepezil HCl (Aricept) 10 mg QHS ORAL 08/22/18 21:00 09/21/18 20:59 08/22/18 20:48 Duloxetine HCl (Cymbalta) 80 mg DAILY ORAL 08/23/18 09:00 09/22/18 08:59 08/23/18 09:08 Gadobutrol (Gadavist) 7.5 mmol NOW PRN IV Radiology Procedure 08/23/18 14:00 08/27/18 13:51 Heparin Sodium (Porcine) (Heparin 5000 units/ml) 5,000 units EVERY 12 HOURS SUBQ 08/23/18 09:00 09/22/18 08:59 08/23/18 09:11 Insulin Aspart (NovoLOG) BEFORE MEALS AND HS SUBQ 08/22/18 21:00 09/21/18 20:59 08/23/18 12:42 Insulin Aspart (NovoLOG) 5 units NOVOTIAC SUBQ 08/23/18 11:50 09/22/18 11:49 Insulin Detemir (Levemir) 15 units DAILY SUBQ 08/23/18 09:00 09/22/18 08:59 08/23/18 09:10 Iopamidol (Isovue-300 100ml) 100 ml NOW PRN INJ Radiology Procedure 08/22/18 13:30 08/24/18 13:29 Lisinopril (Zestril) 10 mg DAILY ORAL 08/24/18 09:00 09/23/18 08:59 Magnesium Hydroxide (Mom) 30 ml Q4H PRN ORAL Constipation 08/22/18 20:30 09/21/18 18:59 Metformin HCl (Glucophage) 500 mg TIAC ORAL 08/24/18 11:30 09/23/18 11:29 Metoprolol Tartrate (Lopressor) 12.5 mg Q12HR ORAL 08/23/18 21:00 09/22/18 20:59 Multivitamins Therapeutic (Therapeutic Multivitamin) 1 ea DAILY ORAL 08/23/18 09:00 09/22/18 08:59 08/23/18 09:09 Pantoprazole (Protonix) 40 mg DAILY ORAL 08/23/18 09:00 09/22/18 08:59 08/23/18 09:09 Sennosides (Senokot) 8.6 mg DAILY ORAL 08/23/18 09:00 09/21/18 18:59 08/23/18 09:09 Tamsulosin HCl (Flomax) 0.4 mg QHS ORAL 08/23/18 21:00 09/22/18 08:59 GI: Plan Problems: (1) hyper glycemia (2) Peptic ulcer disease Plan recent EGD/colonoscopy this year November 2017. 1. A 3 to 4 cm hiatal hernia. 2. Lower esophageal reflux erosions consistent with gastroesophageal reflux. 3. Normal colonoscopy including 10 cm of terminal ileum, although visualization was somewhat suboptimal. history of iron deficiency anemia work up DM management advance diet to ADA diet MRI ordered to evaluate liver mass. ppi zofran prn fu labs, AFP Discussed with Dr. Valenzuela. Thank you for this patient referral, we will follow. The patient was seen and examined at bedside and all new and available data was reviewed in the patients chart. I agree with the above findings, impression and plan. (Patient seen earlier today. Signature stamp does not reflect patient encounter time.). - MD Arelis Stevenson,Michell-Rik [employer] Aug 23, 2018 15:55
[2018-08-23] MEDS: cefTRIAXone 1 GM in D5W 55 ML IVPB SCH (16:40)
--- NOTE | 2018-08-23 17:23 | Diagnostic Imaging Report ---
Indication: Cholelithiasis, abdominal pain, possible mass on prior liver MRI Technique: Axial and coronal single shot fast spin echo,, axial T2 FRFSE fat-saturated, axial 3-D dual echo, axial 2-D FIESTA, 2-D thick slab MRCP, coronal 3-D MRCP, pre and postcontrast axial LAVA Flex, postcontrast coronal LAVA flex images of the abdomen Comparison: 08/22/2018 CT scan, 06/01/2016 the gallbladder demonstrates gallstones. MRI Findings: Exam is limited due to significant motion artifact. Tiny T2 hyperintense lesion is seen in posterior segment 2 of the liver, seen only on the axial T2 fat-saturated images, and not on any the other sequences. The larger lesion described on the prior MRI is not evident currently. No other liver lesions are evident Again demonstrated are gallstones. No biliary ductal dilatation or intraluminal biliary ductal filling defects. The pancreatic duct is normal in caliber and appearance. The pancreas, spleen, adrenals, kidneys are unremarkable. There is suggestion of some free fluid in the right paracolic gutter a T2 fat-saturated images only; suspect that this is artifactual as no fluid is seen in this area on other sequences or on prior CT. Impression: Limited exam, as described Previously reported (in 2016) left lobe liver lesion is no longer evident, may have been a cyst that involuted, versus artifact. Cholelithiasis. No evidence of biliary ductal dilatation or choledocholithiasis Possible tiny left lobe liver cyst, seen only a single sequence
--- NOTE | 2018-08-23 19:15 | Consultation ---
DATE OF CONSULTATION: 08/23/2018 ENDOCRINOLOGY CONSULTATION CONSULTING PHYSICIAN: Delvis Gray M.D. REFERRING PHYSICIAN: Ramon Rashid M.D. REASON FOR CONSULTATION: Diabetes management. HISTORY OF PRESENT ILLNESS: The patient is a 67-year-old male, who presented to the emergency department for evaluation brought by the EMS for elevated glucose, he is coming from the [facility] facility. Accu-Chek was greater than 300. I was called to manage diabetes. PAST MEDICAL HISTORY: 1. Diabetes. 2. Hypertension. 3. CVA. 4. TIA. PAST SURGICAL HISTORY: None. FAMILY HISTORY: Noncontributory. SOCIAL HISTORY: He lives in a [facility] facility. REVIEW OF SYSTEMS: Difficult to obtain. LABORATORY DATA: Sodium 133, potassium 3.6, chloride 98, bicarbonate 25, BUN 10, creatinine 0.6, glucose 320 PHYSICAL EXAMINATION: GENERAL: Not in apparent distress. VITAL SIGNS: Blood pressure 97/72, pulse of 107, temperature 97. HEENT: No scleral icterus. NECK: No JVD. HEART: Regular. LUNGS: Clear. ABDOMEN: Positive bowel sounds. EXTREMITIES: No clubbing, cyanosis, or edema. DIAGNOSIS: Diabetes, out of control. PLAN: 1. Start Levemir 15 units daily. 2. Start NovoLog 5 units before each meal. 3. Start metformin 500 mg t.i.d. 4. NovoLog sliding scale insulin. 5. Further adjustment according to blood glucose values. Thank you, Dr. Rashid, for the courtesy of this consultation. Delvis Gray M.D. DR: YVONNE/SOUTH JOB#: [id number] CC: MIAN
--- NOTE | 2018-08-23 19:45 | Consultation ---
DATE OF CONSULTATION: 08/23/2018 INFECTIOUS DISEASE CONSULT CONSULTING PHYSICIAN: Canelo Gann M.D. PRIMARY ATTENDING PHYSICIAN: Ramon Rashid M.D. REASON FOR CONSULT: Leukocytosis. HISTORY OF PRESENT ILLNESS: This 67-year-old male admitted yesterday from a retirement facility because of uncontrolled diabetes mellitus. He had a blood sugar of 316 in hospital. At presentation had leukocytosis of 12.6 that is increased to 16.2. According to ER doctor, he complained of abdominal pain and had a CT scan of abdomen and pelvis. The patient has dementia, and is a poor historian. PAST MEDICAL HISTORY: Significant for diabetes mellitus, hypertension, has history of GI bleeding in 2016, has Alzheimer dementia, has history of peptic ulcer, has history of BPH, and cataract. ALLERGIES: No known drug allergies. MEDICATIONS: metformin, Colace, lisinopril, atorvastatin, Flomax, metoprolol, haloperidol, insulin, lisinopril, Lopressor, aspirin, Cymbalta, multivitamin, Protonix, Senokot, heparin, insulin Detemir, Aricept, milk of magnesia, and bisacodyl. SOCIAL HISTORY: senior care resident. . No other history obtainable by the patient. PHYSICAL EXAMINATION: VITAL SIGNS: Temperature 98.7, pulse is 78, and blood pressure is 152/91. At the time of admission, pulse was 112. GENERAL APPEARANCE: No acute distress. HEAD AND NECK: Mucous membranes are moist. HEART: S1 and S2. Regular. LUNGS: Clear. ABDOMEN: Soft, obese, and nontender. EXTREMITIES: Has no edema. LABORATORY AND DIAGNOSTIC DATA: WBC 16.2, hemoglobin 13, hematocrit 38.8, and platelets 240,000. Sodium 133, potassium 3.6, chloride 98, BUN 6, creatinine 0.6, glucose 222. LFTs within normal limits. UA shows negative for nitrites. Blood was positive for ketones. Blood acetone level was negative. CT scan of the abdomen and pelvis showed cholelithiasis, calcified prostate, and mild fatty liver. IMPRESSION: Sepsis or systemic inflammatory response syndrome. The patient had tachycardia and leukocytosis. Source of infection is not clear, but may have early pneumonia. The patient has diabetes mellitus with hyperglycemia, has Alzheimer dementia, hypertension, benign prostatic hypertrophy, and cataract. RECOMMENDATION: 1. We will ask for chest x-ray. 2. We will start empirically on Rocephin and follow up the cultures. At the end of my exam, I thank Dr. Rashid, for involving me in the care of this patient. Canelo Gann M.D. DR: ZACHARY JOB#: [id number] CC: MIAN
[2018-08-23 20:00] VITALS: BP 123/87
--- NOTE | 2018-08-23 20:15 | History and Physical Report ---
DATE OF ADMISSION: 08/22/2018 HISTORY OF PRESENT ILLNESS: The patient was admitted for hyperglycemia, uncontrolled diabetes. The patient is labile diabetic and admitted for that reason. The patient is a poor historian cannot get reliable history from the patient. The patient is also complaining of abdominal pain. No nausea, no vomiting, no diarrhea, no constipation. She is admitted for those reasons. PAST MEDICAL HISTORY: Organic brain syndrome, NIDDM, hypertension, history of CVA, history of hypertension and diabetes, hyperlipidemia, constipation as well as GERD, psychosis and BPH. MEDICATIONS: Aspirin, Lipitor, insulin, benazepril, Colace, Cymbalta, ferrous sulfate, Levemir, multivitamin, metformin, Protonix, Seroquel, and Flomax. FAMILY HISTORY: Unable to obtain. SOCIAL HISTORY: No history of alcohol or illicit drugs. Comes from a residential. REVIEW OF SYSTEMS: HEENT: Denies headaches. RESPIRATORY: Denies shortness of breath. Denies cough. CARDIOVASCULAR: Denies chest pain. GASTROINTESTINAL: Denies nausea, vomiting, or diarrhea. Does complain of abdominal pain. The patient is relatively a poor historian. PHYSICAL EXAMINATION: VITAL SIGNS: Temperature 96.8, pulse is 111, blood pressure 122/71. HEENT: PERRLA. NECK: Supple. No lymphadenopathy. CHEST: Clear to auscultation GASTROINTESTINAL: Diffuse tenderness, however, abdomen is soft and not in any acute distress. Reflexes equal on both sides. SKIN: For skin integrity, please refer to the nursing notes. NEUROLOGIC: The patient has generalized weakness, which is chronic. LABORATORY DATA: WBC of 12.6, hemoglobin of 14, and platelets of 247. Sodium 135, potassium 4.1, BUN of 9, and creatinine 0.9, and glucose of 360. ASSESSMENT AND PLAN: Hyperglycemia, uncontrolled diabetes, and abdominal pain. I have asked Dr. Delvis Gray, Dr. Patricia, Dr. Canelo Gann, Dr. Valenzuela to see the patient to rule out any infectious etiology as well as for workup abdominal pain and also for basically fluid management, the patient will not be on dry side. Ramon Rashid M.D. DR: Augie JOB#: [id number] CC:
[2018-08-23] MEDS ORDERED: Atorvastatin 20mg tab ORAL SCH (21:00)
[2018-08-23] MEDS: Metoprolol Tartrate 12.5mg TAB ORAL SCH (21:17)
[2018-08-23] MEDS: Donepezil 10mg tab ORAL SCH (21:17)
[2018-08-23] MEDS: Tamsulosin 0.4mg cap ORAL SCH (21:18)
--- NOTE | 2018-08-23 23:48 | Consultation ---
History of Present Illness General Date patient seen: Aug 23, 2018 Chief Complaint: Abnormal Labs Referring physician: MIMI OJEDA Reason for Consultation: ABDOMINAL PAIN Present Illness HPI 67-year-old male with hx of CVA and anxiety, who presented to the emergency department for evaluation brought by the EMS for elevated glucose, he is [facility] facility. the pt pw worsening of confusion and agitation Allergies: Coded Allergies: No Known Allergies (Unverified , 05/25/16) Medication History Scheduled Ascorbic Acid* (Vitamin C*), 500 MG ORAL DAILY, (Reported) Aspirin (Aspirin EC), 81 MG ORAL DAILY, (Reported) Atorvastatin Calcium* (Atorvastatin Calcium*), 80 MG ORAL DAILY, (Reported) Docusate Sodium* (Docusate Sodium*), 100 MG ORAL Q12HR, (Reported) Donepezil Hcl* (Donepezil Hcl*), 10 MG ORAL QHS, (Reported) Duloxetine (Cymbalta), 80 MG ORAL DAILY, (Reported) Ferrous Sulfate* (Ferrous Sulfate*), 325 MG ORAL DAILY, (Reported) Insulin Detemir (Levemir), 14 UNITS SUBQ DAILY, (Reported) Insulin Detemir (Levemir), 30 UNITS SUBQ BEDTIME, (Reported) Metformin Hcl* (Metformin Hcl*), 850 MG ORAL BID, (Reported) Multivitamin With Minerals (Multivitamins With Minerals*), 1 TAB ORAL DAILY, ( Reported) Nifedipine (Nifedipine*), 60 MG ORAL EVERY 8 HOURS, (Reported) Pantoprazole* (Protonix*), 40 MG ORAL DAILY, (Reported) Quinapril Hcl (Quinapril Hcl), 20 MG PO BID, (Reported) Tamsulosin Hcl (Tamsulosin Hcl*), 0.4 MG ORAL DAILY, (Reported) Vitamin D (Vitamin D3), 1,000 UNITS ORAL DAILY, (Reported) Scheduled PRN Bisacodyl* (Dulcolax*), 5 MG ORAL DAILY PRN for Constipation, (Reported) Patient History History Provided By: Patient, Medical Record, PMD Healthcare decision maker Resuscitation status Advanced Directive on File Past Medical/Surgical History Past Medical/Surgical History: (1) Anemia due to acute blood loss (2) Colonization with VRE (vancomycin-resistant enterococcus) (3) Coffee ground emesis (4) MRSA colonization (5) Cholangitis due to bile duct calculus with obstruction (6) Diabetes mellitus out of control (7) hyper glycemia (8) Peptic ulcer disease (9) Cholelithiasis (10) Liver lesion (11) Leukocytosis (12) Sepsis (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 Review of Systems Psychiatric: Reports: prior hx, anxiety, depressed feelings, hallucinations Physical Exam General Appearance: alert, confused Last 24 Hour Vital Signs Date Time Temp Pulse Resp B/P (MAP) Pulse Ox O2 Delivery O2 Flow Rate FiO2 08/23/18 21:17 112 123/87 08/23/18 20:12 Room Air 08/23/18 20:00 97.6 112 18 123/87 (99) 99 08/23/18 12:50 115 126/93 08/23/18 12:00 98.2 115 18 126/93 (104) 98 08/23/18 11:45 104/74 08/23/18 09:00 Room Air 08/23/18 08:45 78 153/91 (111) 08/23/18 08:00 98.5 95 19 161/95 (117) 94 08/23/18 04:00 96.8 96 17 153/99 (117) 95 08/23/18 00:00 97.0 107 16 94/72 (79) 98 Intake and Output 08/22/18 08/23/18 19:00 07:00 # Voids 1 2 Laboratory Tests Test 08/23/18 06:10 White Blood Count 16.2 K/UL (4.8-10.8) H Red Blood Count 5.28 M/UL (4.70-6.10) Hemoglobin 13.0 G/DL (14.2-18.0) L Hematocrit 38.8 % (42.0-52.0) L Mean Corpuscular Volume 74 FL (80-99) L Mean Corpuscular Hemoglobin 24.6 PG (27.0-31.0) L Mean Corpuscular Hemoglobin Concent 33.4 G/DL (32.0-36.0) Red Cell Distribution Width 11.9 % (11.6-14.8) Platelet Count 240 K/UL (150-450) Mean Platelet Volume 7.2 FL (6.5-10.1) Neutrophils (%) (Auto) % (45.0-75.0) Lymphocytes (%) (Auto) % (20.0-45.0) Monocytes (%) (Auto) % (1.0-10.0) Eosinophils (%) (Auto) % (0.0-3.0) Basophils (%) (Auto) % (0.0-2.0) Differential Total Cells Counted 100 Neutrophils % (Manual) 82 % (45-75) H Lymphocytes % (Manual) 9 % (20-45) L Monocytes % (Manual) 8 % (1-10) Eosinophils % (Manual) 0 % (0-3) Basophils % (Manual) 0 % (0-2) Band Neutrophils 1 % (0-8) Platelet Estimate Adequate Platelet Morphology Normal Hypochromasia 1+ Microcytosis 1+ Sodium Level 133 MMOL/L (136-145) L Potassium Level 3.6 MMOL/L (3.5-5.1) Chloride Level 98 MMOL/L (98-107) Carbon Dioxide Level 25 MMOL/L (21-32) Anion Gap 10 mmol/L (5-15) Blood Urea Nitrogen 6 mg/dL (7-18) L Creatinine 0.6 MG/DL (0.55-1.30) Estimat Glomerular Filtration Rate > 60 mL/min (>60) Glucose Level 222 MG/DL (74-106) #H Hemoglobin A1c 9.7 % (4.3-6.0) H Uric Acid 2.2 MG/DL (2.6-7.2) L Calcium Level 8.5 MG/DL (8.5-10.1) Phosphorus Level 3.2 MG/DL (2.5-4.9) Magnesium Level 1.4 MG/DL (1.8-2.4) L Total Bilirubin 1.1 MG/DL (0.2-1.0) H Direct Bilirubin 0.2 MG/DL (0.0-0.3) Aspartate Amino Transf (AST/SGOT) 17 U/L (15-37) Alanine Aminotransferase (ALT/SGPT) 31 U/L (12-78) Alkaline Phosphatase 136 U/L (46-116) H C-Reactive Protein, Quantitative 5.0 mg/dL (0.00-0.90) H Total Protein 7.9 G/DL (6.4-8.2) Albumin 3.4 G/DL (3.4-5.0) Globulin 4.5 g/dL Albumin/Globulin Ratio 0.8 (1.0-2.7) L Triglycerides Level 58 MG/DL (30-150) Cholesterol Level 80 MG/DL (< 200) LDL Cholesterol 44 mg/dL (<100) HDL Cholesterol 37 MG/DL (40-60) L Cholesterol/HDL Ratio 2.2 (3.3-4.4) L Vitamin B12 Level 301 PG/ML (193-986) Thyroid Stimulating Hormone (TSH) 1.683 uiU/mL (0.358-3.740) Height (Feet): 5 Height (Inches): 6.00 Weight (Pounds): 150 Medications Current Medications Medications (Trade) Dose Ordered Sig/Mariza Route PRN Reason Start Time Stop Time Status Last Admin Dose Admin Aspirin (Ecotrin) 81 mg DAILY ORAL 08/23/18 09:00 09/22/18 08:59 08/23/18 09:09 Atorvastatin Calcium (Lipitor) 20 mg QHS ORAL 08/23/18 21:00 09/21/18 20:59 08/23/18 21:18 Bisacodyl (Dulcolax) 5 mg DAILYPRN PRN ORAL Constipation 08/22/18 19:00 09/21/18 18:59 Ceftriaxone Sodium 1 gm/ Dextrose 55 ml @ 110 mls/hr Q24H IVPB 08/23/18 13:00 08/30/18 12:59 08/23/18 16:40 Dextrose (Dextrose 50%) 25 ml Q30M PRN IV Hypoglycemia 08/23/18 07:45 09/22/18 07:44 Dextrose (Dextrose 50%) 50 ml Q30M PRN IV Hypoglycemia 08/23/18 07:45 09/22/18 07:44 Docusate Sodium (Colace) 100 mg TIDPRN ORAL 08/24/18 09:00 09/21/18 20:59 Donepezil HCl (Aricept) 10 mg QHS ORAL 08/22/18 21:00 09/21/18 20:59 08/23/18 21:17 Duloxetine HCl (Cymbalta) 80 mg DAILY ORAL 08/23/18 09:00 09/22/18 08:59 08/23/18 09:08 Gadobutrol (Gadavist) 7.5 mmol NOW PRN IV Radiology Procedure 08/23/18 14:00 08/27/18 13:51 Heparin Sodium (Porcine) (Heparin 5000 units/ml) 5,000 units EVERY 12 HOURS SUBQ 08/23/18 09:00 09/22/18 08:59 08/23/18 21:19 Insulin Aspart (NovoLOG) BEFORE MEALS AND HS SUBQ 08/22/18 21:00 09/21/18 20:59 08/23/18 21:20 Insulin Aspart (NovoLOG) 5 units NOVOTIAC SUBQ 08/23/18 11:50 09/22/18 11:49 Insulin Detemir (Levemir) 15 units DAILY SUBQ 08/23/18 09:00 09/22/18 08:59 08/23/18 09:10 Iopamidol (Isovue-300 100ml) 100 ml NOW PRN INJ Radiology Procedure 08/22/18 13:30 08/24/18 13:29 Lisinopril (Zestril) 10 mg DAILY ORAL 08/24/18 09:00 09/23/18 08:59 Magnesium Hydroxide (Mom) 30 ml Q4H PRN ORAL Constipation 08/22/18 20:30 09/21/18 18:59 Metformin HCl (Glucophage) 500 mg TIAC ORAL 08/24/18 11:30 09/23/18 11:29 Metoprolol Tartrate (Lopressor) 12.5 mg Q12HR ORAL 08/23/18 21:00 09/22/18 20:59 08/23/18 21:17 Multivitamins Therapeutic (Therapeutic Multivitamin) 1 ea DAILY ORAL 08/23/18 09:00 09/22/18 08:59 08/23/18 09:09 Pantoprazole (Protonix) 40 mg DAILY ORAL 08/23/18 09:00 09/22/18 08:59 08/23/18 09:09 Sennosides (Senokot) 8.6 mg DAILY ORAL 08/23/18 09:00 09/21/18 18:59 08/23/18 09:09 Tamsulosin HCl (Flomax) 0.4 mg QHS ORAL 08/23/18 21:00 09/22/18 08:59 08/23/18 21:18 Assessment/Plan Problem List: (1) encephalopathy due to toxin Status: stable Assessment/Plan low dose zyprexa 2.5 mg qhs ativan prn the pt lacks capacity to make decisions. Olivia Ortega MD Aug 23, 2018 23:48
[2018-08-24] VITALS (7 sets, daily range): BP systolic 111–138; BP diastolic 80–90
[2018-08-24] MEDS: NovoLOG Insulin Flexpen SUBQ SCH ×7 (05:59→21:13)
[2018-08-24 06:36] LABS: BASOPHILS % (AUTO) 0.4 % (0.0-2.0); EOSINOPHILS % (AUTO) 0.1 % (0.0-3.0); HEMOGLOBIN 13.1 G/DL (14.2-18.0); LYMPHOCYTES % (AUTO) 13.6 % (20.0-45.0); MEAN CORPUSCULAR VOLUME 74 FL (80-99); MONOCYTES % (AUTO) 5.8 % (1.0-10.0); NEUTROPHILS % (AUTO) 80.2 % (45.0-75.0); PLATELET COUNT 223 K/UL (150-450); RED BLOOD COUNT 5.29 M/UL (4.70-6.10)
[2018-08-24 06:54] LABS: ANION GAP 8 mmol/L (5-15); BLOOD UREA NITROGEN 18 mg/dL (7-18); CALCIUM 8.5 MG/DL (8.5-10.1); CARBON DIOXIDE 25 MMOL/L (21-32); CHLORIDE 99 MMOL/L (98-107); CREATININE 0.8 MG/DL (0.55-1.30); POTASSIUM 3.5 MMOL/L (3.5-5.1); SODIUM 132 MMOL/L (136-145)
--- NOTE | 2018-08-24 07:22 | General Progress Note ---
Assessment/Plan Problem List: (1) Diabetes mellitus out of control ICD Codes: E11.65 - Type 2 diabetes mellitus with hyperglycemia SNOMED: 325988957 (2) hyper glycemia Assessment/Plan increase Levemir to 18 units increase Novolog to 6 units ac tid continue NISS Metformin will be started today Subjective Allergies: Coded Allergies: No Known Allergies (Unverified , 05/25/16) All Systems: reviewed and negative except above Subjective events noted Objective Last 24 Hour Vital Signs Date Time Temp Pulse Resp B/P (MAP) Pulse Ox O2 Delivery O2 Flow Rate FiO2 08/24/18 04:00 98.0 105 18 114/80 (91) 95 08/24/18 00:00 98.6 100 18 112/81 (91) 98 08/23/18 21:17 112 123/87 08/23/18 20:12 Room Air 08/23/18 20:00 97.6 112 18 123/87 (99) 99 08/23/18 12:50 115 126/93 08/23/18 12:00 98.2 115 18 126/93 (104) 98 08/23/18 11:45 104/74 08/23/18 09:00 Room Air 08/23/18 08:45 78 153/91 (111) 08/23/18 08:00 98.5 95 19 161/95 (117) 94 Intake and Output 08/23/18 08/24/18 18:59 06:59 Intake Total 360 ml 100 ml Balance 360 ml 100 ml Intake Oral 360 ml IV Total 100 ml # Voids 4 2 Laboratory Tests 08/24/18 06:10: White Blood Count 16.0H, Red Blood Count 5.29, Hemoglobin 13.1L, Hematocrit 39.0L, Mean Corpuscular Volume 74L, Mean Corpuscular Hemoglobin 24.7L, Mean Corpuscular Hemoglobin Concent 33.5, Red Cell Distribution Width 12.0, Platelet Count 223, Mean Platelet Volume 6.9, Neutrophils (%) (Auto) 80.2H, Lymphocytes ( %) (Auto) 13.6L, Monocytes (%) (Auto) 5.8, Eosinophils (%) (Auto) 0.1, Basophils (%) (Auto) 0.4, Sodium Level 132L, Potassium Level 3.5, Chloride Level 99, Carbon Dioxide Level 25, Anion Gap 8, Blood Urea Nitrogen 18, Creatinine 0.8, Estimat Glomerular Filtration Rate > 60, Glucose Level 220H, Calcium Level 8.5, Magnesium Level 1.9, Alpha Fetoprotein [Pending] Height (Feet): 5 Height (Inches): 6.00 Weight (Pounds): 151 General Appearance: no apparent distress Neck: normal alignment Cardiovascular: regular rhythm Respiratory/Chest: lungs clear Objective Current Medications Medications (Trade) Dose Ordered Sig/Mariza Route PRN Reason Start Time Stop Time Status Last Admin Dose Admin Aspirin (Ecotrin) 81 mg DAILY ORAL 08/23/18 09:00 09/22/18 08:59 08/23/18 09:09 Atorvastatin Calcium (Lipitor) 20 mg QHS ORAL 08/23/18 21:00 09/21/18 20:59 08/23/18 21:18 Bisacodyl (Dulcolax) 5 mg DAILYPRN PRN ORAL Constipation 08/22/18 19:00 09/21/18 18:59 Ceftriaxone Sodium 1 gm/ Dextrose 55 ml @ 110 mls/hr Q24H IVPB 08/23/18 13:00 08/30/18 12:59 08/23/18 16:40 Dextrose (Dextrose 50%) 25 ml Q30M PRN IV Hypoglycemia 08/23/18 07:45 09/22/18 07:44 Dextrose (Dextrose 50%) 50 ml Q30M PRN IV Hypoglycemia 08/23/18 07:45 09/22/18 07:44 Docusate Sodium (Colace) 100 mg TIDPRN ORAL 08/24/18 09:00 09/21/18 20:59 Donepezil HCl (Aricept) 10 mg QHS ORAL 08/22/18 21:00 09/21/18 20:59 08/23/18 21:17 Duloxetine HCl (Cymbalta) 80 mg DAILY ORAL 08/23/18 09:00 09/22/18 08:59 08/23/18 09:08 Gadobutrol (Gadavist) 7.5 mmol NOW PRN IV Radiology Procedure 08/23/18 14:00 08/27/18 13:51 Heparin Sodium (Porcine) (Heparin 5000 units/ml) 5,000 units EVERY 12 HOURS SUBQ 08/23/18 09:00 09/22/18 08:59 08/23/18 21:19 Insulin Aspart (NovoLOG) BEFORE MEALS AND HS SUBQ 08/22/18 21:00 09/21/18 20:59 08/24/18 05:59 Insulin Aspart (NovoLOG) 5 units NOVOTIAC SUBQ 08/23/18 11:50 09/22/18 11:49 08/24/18 06:00 Insulin Detemir (Levemir) 15 units DAILY SUBQ 08/23/18 09:00 09/22/18 08:59 08/23/18 09:10 Iopamidol (Isovue-300 100ml) 100 ml NOW PRN INJ Radiology Procedure 08/22/18 13:30 08/24/18 13:29 Lisinopril (Zestril) 10 mg DAILY ORAL 08/24/18 09:00 09/23/18 08:59 Magnesium Hydroxide (Mom) 30 ml Q4H PRN ORAL Constipation 08/22/18 20:30 09/21/18 18:59 Metformin HCl (Glucophage) 500 mg TIAC ORAL 08/24/18 11:30 09/23/18 11:29 Metoprolol Tartrate (Lopressor) 12.5 mg Q12HR ORAL 08/23/18 21:00 09/22/18 20:59 08/23/18 21:17 Multivitamins Therapeutic (Therapeutic Multivitamin) 1 ea DAILY ORAL 08/23/18 09:00 09/22/18 08:59 08/23/18 09:09 Pantoprazole (Protonix) 40 mg DAILY ORAL 08/23/18 09:00 09/22/18 08:59 08/23/18 09:09 Sennosides (Senokot) 8.6 mg DAILY ORAL 08/23/18 09:00 09/21/18 18:59 08/23/18 09:09 Tamsulosin HCl (Flomax) 0.4 mg QHS ORAL 08/23/18 21:00 09/22/18 08:59 08/23/18 21:18 Item Value Date Time Bedside Blood Glucose 217 mg/dl H 08/24/18 0635 Bedside Blood Glucose 252 mg/dl H 08/23/18 2130 Bedside Blood Glucose 268 mg/dl H 08/23/18 1643 Bedside Blood Glucose 274 mg/dl H 08/23/18 1242 Bedside Blood Glucose 264 mg/dl H 08/23/18 0910 Bedside Blood Glucose 214 mg/dl H 08/23/18 0556 Delvis Gray MD Aug 24, 2018 07:22
[2018-08-24] MEDS: Multivitamin w/Minerals tab ORAL SCH (08:22)
[2018-08-24] MEDS: Aspirin EC 81mg tab ORAL SCH (08:22)
[2018-08-24] MEDS: Sennosides 8.6mg tab ORAL SCH (08:23)
[2018-08-24] MEDS: Heparin 5000 units/ml inj SUBQ SCH ×2 (08:26→21:13)
[2018-08-24] MEDS: Metoprolol Tartrate 12.5mg TAB ORAL SCH (08:27)
[2018-08-24] MEDS ORDERED: Tubing IV Secondary IV ONE (08:32)
[2018-08-24] MEDS ORDERED: NS 500ML ONE (08:32)
[2018-08-24] MEDS: Levemir Flexpen SUBQ SCH (08:44)
[2018-08-24] MEDS ORDERED: Lisinopril 10mg tab ORAL SCH (09:00)
[2018-08-24] MEDS ORDERED: Docusate 100mg cap ORAL SCH (09:00)
--- NOTE | 2018-08-24 09:19 | General Progress Note ---
Assessment/Plan Problem List: (1) Cholelithiasis ICD Codes: K80.20 - Calculus of gallbladder without cholecystitis without obstruction SNOMED: 119221697 (2) Liver lesion ICD Codes: K76.9 - Liver disease, unspecified SNOMED: 673493275 (3) Peptic ulcer disease ICD Codes: K27.9 - Peptic ulcer, site unspecified, unspecified as acute or chronic, without hemorrhage or perforation SNOMED: 83197303 (4) Diabetes mellitus out of control ICD Codes: E11.65 - Type 2 diabetes mellitus with hyperglycemia SNOMED: 230667644 Assessment/Plan MRI reviewed, the prior liver lesion not seen FU AFP fu labs DM control recent GI procedures, so no plans for this admission Subjective Allergies: Coded Allergies: No Known Allergies (Unverified , 05/25/16) Objective Last 24 Hour Vital Signs Date Time Temp Pulse Resp B/P (MAP) Pulse Ox O2 Delivery O2 Flow Rate FiO2 08/24/18 08:32 98.6 104 19 115/80 (92) 94 08/24/18 08:28 115/80 08/24/18 08:27 104 115/80 08/24/18 04:00 98.0 105 18 114/80 (91) 95 08/24/18 00:00 98.6 100 18 112/81 (91) 98 08/23/18 21:17 112 123/87 08/23/18 20:12 Room Air 08/23/18 20:00 97.6 112 18 123/87 (99) 99 08/23/18 12:50 115 126/93 08/23/18 12:00 98.2 115 18 126/93 (104) 98 08/23/18 11:45 104/74 Intake and Output 08/23/18 08/24/18 19:00 07:00 Intake Total 360 ml 100 ml Balance 360 ml 100 ml Intake Oral 360 ml IV Total 100 ml # Voids 4 2 Laboratory Tests 08/24/18 06:10: White Blood Count 16.0H, Red Blood Count 5.29, Hemoglobin 13.1L, Hematocrit 39.0L, Mean Corpuscular Volume 74L, Mean Corpuscular Hemoglobin 24.7L, Mean Corpuscular Hemoglobin Concent 33.5, Red Cell Distribution Width 12.0, Platelet Count 223, Mean Platelet Volume 6.9, Neutrophils (%) (Auto) 80.2H, Lymphocytes ( %) (Auto) 13.6L, Monocytes (%) (Auto) 5.8, Eosinophils (%) (Auto) 0.1, Basophils (%) (Auto) 0.4, Neutrophils % (Manual) [Pending], Lymphocytes % ( Manual) [Pending], Platelet Estimate [Pending], Platelet Morphology [Pending], Sodium Level 132L, Potassium Level 3.5, Chloride Level 99, Carbon Dioxide Level 25, Anion Gap 8, Blood Urea Nitrogen 18, Creatinine 0.8, Estimat Glomerular Filtration Rate > 60, Glucose Level 220H, Calcium Level 8.5, Magnesium Level 1.9 , Alpha Fetoprotein [Pending] Procedure: MRI Abdomen w Contrast Indication: Cholelithiasis, abdominal pain, possible mass on prior liver MRI Technique: Axial and coronal single shot fast spin echo,, axial T2 FRFSE fat-saturated, axial 3-D dual echo, axial 2-D FIESTA, 2-D thick slab MRCP, coronal 3-D MRCP, pre and postcontrast axial LAVA Flex, postcontrast coronal LAVA flex images of the abdomen Comparison: 08/22/2018 CT scan, 06/01/2016 the gallbladder demonstrates gallstones. MRI Findings: Exam is limited due to significant motion artifact. Tiny T2 hyperintense lesion is seen in posterior segment 2 of the liver, seen only on the axial T2 fat-saturated images, and not on any the other sequences. The larger lesion described on the prior MRI is not evident currently. No other liver lesions are evident Again demonstrated are gallstones. No biliary ductal dilatation or intraluminal biliary ductal filling defects. The pancreatic duct is normal in caliber and appearance. The pancreas, spleen, adrenals, kidneys are unremarkable. There is suggestion of some free fluid in the right paracolic gutter a T2 fat-saturated images only; suspect that this is artifactual as no fluid is seen in this area on other sequences or on prior CT. Impression: Limited exam, as described Previously reported (in 2016) left lobe liver lesion is no longer evident, may have been a cyst that involuted, versus artifact. Cholelithiasis. No evidence of biliary ductal dilatation or choledocholithiasis Possible tiny left lobe liver cyst, seen only a single sequence Height (Feet): 5 Height (Inches): 6.00 Weight (Pounds): 151 General Appearance: no apparent distress EENT: normal ENT inspection Neck: supple Cardiovascular: normal rate Respiratory/Chest: decreased breath sounds Abdomen: normal bowel sounds, non tender, soft Extremities: non-tender Keith Valenzuela MD Aug 24, 2018 09:19
--- NOTE | 2018-08-24 11:10 | Infectious Diseases Prog Note ---
Assessment/Plan Assessment/Plan A; Sepsis, SIRS DM with hyperglycemia Cholelithiasis HPN Alzheimer disease P: continue Rocephin Subjective ROS Limited/Unobtainable: Yes Constitutional: Reports: no symptoms Allergies: Coded Allergies: No Known Allergies (Unverified , 05/25/16) Objective Vital Signs Last 24 Hour Vital Signs Date Time Temp Pulse Resp B/P (MAP) Pulse Ox O2 Delivery O2 Flow Rate FiO2 08/24/18 09:00 Room Air 08/24/18 08:32 98.6 104 19 115/80 (92) 94 08/24/18 08:28 115/80 08/24/18 08:27 104 115/80 08/24/18 04:00 98.0 105 18 114/80 (91) 95 08/24/18 00:00 98.6 100 18 112/81 (91) 98 08/23/18 21:17 112 123/87 08/23/18 20:12 Room Air 08/23/18 20:00 97.6 112 18 123/87 (99) 99 08/23/18 12:50 115 126/93 08/23/18 12:00 98.2 115 18 126/93 (104) 98 08/23/18 11:45 104/74 Height (Feet): 5 Height (Inches): 6.00 Weight (Pounds): 151 HEENT: mucous membranes moist Respiratory/Chest: lungs clear Cardiovascular: tachycardia Abdomen: soft, non tender Extremities: no edema Neurologic/Psychiatric: alert, responsive Microbiology Date/Time Source Procedure Growth Status 08/22/18 13:31 Rectum - Preliminary Resulted Laboratory Tests Test 08/24/18 06:10 White Blood Count 16.0 K/UL (4.8-10.8) H Red Blood Count 5.29 M/UL (4.70-6.10) Hemoglobin 13.1 G/DL (14.2-18.0) L Hematocrit 39.0 % (42.0-52.0) L Mean Corpuscular Volume 74 FL (80-99) L Mean Corpuscular Hemoglobin 24.7 PG (27.0-31.0) L Mean Corpuscular Hemoglobin Concent 33.5 G/DL (32.0-36.0) Red Cell Distribution Width 12.0 % (11.6-14.8) Platelet Count 223 K/UL (150-450) Mean Platelet Volume 6.9 FL (6.5-10.1) Neutrophils (%) (Auto) 80.2 % (45.0-75.0) H Lymphocytes (%) (Auto) 13.6 % (20.0-45.0) L Monocytes (%) (Auto) 5.8 % (1.0-10.0) Eosinophils (%) (Auto) 0.1 % (0.0-3.0) Basophils (%) (Auto) 0.4 % (0.0-2.0) Differential Total Cells Counted 100 Neutrophils % (Manual) 78 % (45-75) H Lymphocytes % (Manual) 16 % (20-45) L Monocytes % (Manual) 6 % (1-10) Eosinophils % (Manual) 0 % (0-3) Basophils % (Manual) 0 % (0-2) Band Neutrophils 0 % (0-8) Platelet Estimate Adequate Platelet Morphology Normal Anisocytosis 1+ Microcytosis 1+ Sodium Level 132 MMOL/L (136-145) L Potassium Level 3.5 MMOL/L (3.5-5.1) Chloride Level 99 MMOL/L (98-107) Carbon Dioxide Level 25 MMOL/L (21-32) Anion Gap 8 mmol/L (5-15) Blood Urea Nitrogen 18 mg/dL (7-18) Creatinine 0.8 MG/DL (0.55-1.30) Estimat Glomerular Filtration Rate > 60 mL/min (>60) Glucose Level 220 MG/DL (74-106) H Calcium Level 8.5 MG/DL (8.5-10.1) Magnesium Level 1.9 MG/DL (1.8-2.4) Alpha Fetoprotein Pending Current Medications Medications (Trade) Dose Ordered Sig/Mariza Route PRN Reason Start Time Stop Time Status Last Admin Dose Admin Aspirin (Ecotrin) 81 mg DAILY ORAL 08/23/18 09:00 09/22/18 08:59 08/24/18 08:22 Atorvastatin Calcium (Lipitor) 20 mg QHS ORAL 08/23/18 21:00 09/21/18 20:59 08/23/18 21:18 Bisacodyl (Dulcolax) 5 mg DAILYPRN PRN ORAL Constipation 08/22/18 19:00 09/21/18 18:59 Ceftriaxone Sodium 1 gm/ Dextrose 55 ml @ 110 mls/hr Q24H IVPB 08/23/18 13:00 08/30/18 12:59 08/23/18 16:40 Dextrose (Dextrose 50%) 25 ml Q30M PRN IV Hypoglycemia 08/23/18 07:45 09/22/18 07:44 Dextrose (Dextrose 50%) 50 ml Q30M PRN IV Hypoglycemia 08/23/18 07:45 09/22/18 07:44 Docusate Sodium (Colace) 100 mg TIDPRN ORAL 08/24/18 09:00 09/21/18 20:59 Donepezil HCl (Aricept) 10 mg QHS ORAL 08/22/18 21:00 09/21/18 20:59 08/23/18 21:17 Duloxetine HCl (Cymbalta) 80 mg DAILY ORAL 08/23/18 09:00 09/22/18 08:59 08/24/18 08:22 Gadobutrol (Gadavist) 7.5 mmol NOW PRN IV Radiology Procedure 08/23/18 14:00 08/27/18 13:51 Heparin Sodium (Porcine) (Heparin 5000 units/ml) 5,000 units EVERY 12 HOURS SUBQ 08/23/18 09:00 09/22/18 08:59 08/24/18 08:26 Insulin Aspart (NovoLOG) BEFORE MEALS AND HS SUBQ 08/22/18 21:00 09/21/18 20:59 08/24/18 05:59 Insulin Aspart (NovoLOG) 6 units NOVOTIAC SUBQ 08/24/18 11:50 09/22/18 11:49 Insulin Detemir (Levemir) 18 units DAILY SUBQ 08/24/18 09:00 09/22/18 08:59 08/24/18 08:44 Iopamidol (Isovue-300 100ml) 100 ml NOW PRN INJ Radiology Procedure 08/22/18 13:30 08/24/18 13:29 Lisinopril (Zestril) 10 mg DAILY ORAL 08/24/18 09:00 09/23/18 08:59 Magnesium Hydroxide (Mom) 30 ml Q4H PRN ORAL Constipation 08/22/18 20:30 09/21/18 18:59 Metformin HCl (Glucophage) 500 mg TIAC ORAL 08/24/18 11:30 09/23/18 11:29 Metoprolol Tartrate (Lopressor) 12.5 mg Q12HR ORAL 08/23/18 21:00 09/22/18 20:59 08/23/18 21:17 Multivitamins Therapeutic (Therapeutic Multivitamin) 1 ea DAILY ORAL 08/23/18 09:00 09/22/18 08:59 08/24/18 08:22 Pantoprazole (Protonix) 40 mg DAILY ORAL 08/23/18 09:00 09/22/18 08:59 08/24/18 08:23 Sennosides (Senokot) 8.6 mg DAILY ORAL 08/23/18 09:00 09/21/18 18:59 08/24/18 08:23 Tamsulosin HCl (Flomax) 0.4 mg QHS ORAL 08/23/18 21:00 09/22/18 08:59 08/23/18 21:18 Canelo Gann MD Aug 24, 2018 11:10
--- NOTE | 2018-08-24 11:33 | General Progress Note ---
Assessment/Plan Problem List: (1) Diabetes mellitus out of control ICD Codes: E11.65 - Type 2 diabetes mellitus with hyperglycemia SNOMED: 455383336 (2) hyper glycemia (3) Peptic ulcer disease ICD Codes: K27.9 - Peptic ulcer, site unspecified, unspecified as acute or chronic, without hemorrhage or perforation SNOMED: 07394345 Status: progressing Assessment/Plan afebrile labile dm sugar is improving pud reviewed chart and labs Subjective ROS Limited/Unobtainable: Yes Allergies: Coded Allergies: No Known Allergies (Unverified , 05/25/16) Objective Last 24 Hour Vital Signs Date Time Temp Pulse Resp B/P (MAP) Pulse Ox O2 Delivery O2 Flow Rate FiO2 08/24/18 09:00 Room Air 08/24/18 08:32 98.6 104 19 115/80 (92) 94 08/24/18 08:28 115/80 08/24/18 08:27 104 115/80 08/24/18 04:00 98.0 105 18 114/80 (91) 95 08/24/18 00:00 98.6 100 18 112/81 (91) 98 08/23/18 21:17 112 123/87 08/23/18 20:12 Room Air 08/23/18 20:00 97.6 112 18 123/87 (99) 99 08/23/18 12:50 115 126/93 08/23/18 12:00 98.2 115 18 126/93 (104) 98 08/23/18 11:45 104/74 Intake and Output 08/23/18 08/24/18 19:00 07:00 Intake Total 360 ml 100 ml Balance 360 ml 100 ml Intake Oral 360 ml IV Total 100 ml # Voids 4 2 Laboratory Tests 08/24/18 06:10: White Blood Count 16.0H, Red Blood Count 5.29, Hemoglobin 13.1L, Hematocrit 39.0L, Mean Corpuscular Volume 74L, Mean Corpuscular Hemoglobin 24.7L, Mean Corpuscular Hemoglobin Concent 33.5, Red Cell Distribution Width 12.0, Platelet Count 223, Mean Platelet Volume 6.9, Neutrophils (%) (Auto) 80.2H, Lymphocytes ( %) (Auto) 13.6L, Monocytes (%) (Auto) 5.8, Eosinophils (%) (Auto) 0.1, Basophils (%) (Auto) 0.4, Differential Total Cells Counted 100, Neutrophils % ( Manual) 78H, Lymphocytes % (Manual) 16L, Monocytes % (Manual) 6, Eosinophils % ( Manual) 0, Basophils % (Manual) 0, Band Neutrophils 0, Platelet Estimate Adequate, Platelet Morphology Normal, Anisocytosis 1+, Microcytosis 1+, Sodium Level 132L, Potassium Level 3.5, Chloride Level 99, Carbon Dioxide Level 25, Anion Gap 8, Blood Urea Nitrogen 18, Creatinine 0.8, Estimat Glomerular Filtration Rate > 60, Glucose Level 220H, Calcium Level 8.5, Magnesium Level 1.9 , Alpha Fetoprotein [Pending] Height (Feet): 5 Height (Inches): 6.00 Weight (Pounds): 151 Neck: supple Cardiovascular: normal rate Respiratory/Chest: lungs clear Abdomen: soft Ramon Rashid MD Aug 24, 2018 11:33
[2018-08-24] MEDS: metFORMIN 500mg tab ORAL SCH ×2 (12:53→16:48)
[2018-08-24] MEDS: cefTRIAXone 1 GM in D5W 55 ML IVPB SCH (13:53)
--- NOTE | 2018-08-24 15:10 | Nephrology Progress Note ---
Assessment/Plan Problem List: (1) Diabetes mellitus out of control (2) Leukocytosis (3) Sepsis Assessment DM OOC HypoNatremia HTN CVA SEPSIS Plan Antibiotics BS control BP control Monitor renal parameters trial 3% saline and lasix Subjective ROS Limited/Unobtainable: No Constitutional: Reports: malaise, weakness Objective Objective Last 24 Hour Vital Signs Date Time Temp Pulse Resp B/P (MAP) Pulse Ox O2 Delivery O2 Flow Rate FiO2 08/24/18 14:15 100.8 117 18 111/88 (96) 92 08/24/18 12:00 100.2 113 19 124/85 (98) 94 08/24/18 09:00 Room Air 08/24/18 08:32 98.6 104 19 115/80 (92) 94 08/24/18 08:28 115/80 08/24/18 08:27 104 115/80 08/24/18 04:00 98.0 105 18 114/80 (91) 95 08/24/18 00:00 98.6 100 18 112/81 (91) 98 08/23/18 21:17 112 123/87 08/23/18 20:12 Room Air 08/23/18 20:00 97.6 112 18 123/87 (99) 99 Intake and Output 08/23/18 08/24/18 19:00 07:00 Intake Total 360 ml 100 ml Balance 360 ml 100 ml Intake Oral 360 ml IV Total 100 ml # Voids 4 2 Laboratory Tests 08/24/18 06:10: White Blood Count 16.0H, Red Blood Count 5.29, Hemoglobin 13.1L, Hematocrit 39.0L, Mean Corpuscular Volume 74L, Mean Corpuscular Hemoglobin 24.7L, Mean Corpuscular Hemoglobin Concent 33.5, Red Cell Distribution Width 12.0, Platelet Count 223, Mean Platelet Volume 6.9, Neutrophils (%) (Auto) 80.2H, Lymphocytes ( %) (Auto) 13.6L, Monocytes (%) (Auto) 5.8, Eosinophils (%) (Auto) 0.1, Basophils (%) (Auto) 0.4, Differential Total Cells Counted 100, Neutrophils % ( Manual) 78H, Lymphocytes % (Manual) 16L, Monocytes % (Manual) 6, Eosinophils % ( Manual) 0, Basophils % (Manual) 0, Band Neutrophils 0, Other Cell Type Pathologist comment, Platelet Estimate Adequate, Platelet Morphology Normal, Anisocytosis 1+, Microcytosis 1+, Sodium Level 132L, Potassium Level 3.5, Chloride Level 99, Carbon Dioxide Level 25, Anion Gap 8, Blood Urea Nitrogen 18 , Creatinine 0.8, Estimat Glomerular Filtration Rate > 60, Glucose Level 220H, Calcium Level 8.5, Magnesium Level 1.9, Alpha Fetoprotein [Pending] Height (Feet): 5 Height (Inches): 6.00 Weight (Pounds): 151 General Appearance: no apparent distress, lethargic Cardiovascular: tachycardia Respiratory/Chest: decreased breath sounds Abdomen: distended Kiran Patricia MD Aug 24, 2018 15:10
--- NOTE | 2018-08-24 15:39 | General Progress Note ---
Assessment/Plan Problem List: (1) encephalopathy due to toxin Status: not improved, unchanged Assessment/Plan low dose zyprexa 2.5 mg qhs ativan prn the pt lacks capacity to make decisions. Subjective Date patient seen: Aug 24, 2018 Neurologic/Psychiatric: Reports: anxiety, depressed Allergies: Coded Allergies: No Known Allergies (Unverified , 05/25/16) Subjective the pt is confused and has waxing and waning of consciousness Objective Last 24 Hour Vital Signs Date Time Temp Pulse Resp B/P (MAP) Pulse Ox O2 Delivery O2 Flow Rate FiO2 08/24/18 14:15 100.8 117 18 111/88 (96) 92 08/24/18 12:00 100.2 113 19 124/85 (98) 94 08/24/18 09:00 Room Air 08/24/18 08:32 98.6 104 19 115/80 (92) 94 08/24/18 08:28 115/80 08/24/18 08:27 104 115/80 08/24/18 04:00 98.0 105 18 114/80 (91) 95 08/24/18 00:00 98.6 100 18 112/81 (91) 98 08/23/18 21:17 112 123/87 08/23/18 20:12 Room Air 08/23/18 20:00 97.6 112 18 123/87 (99) 99 Intake and Output 08/23/18 08/24/18 19:00 07:00 Intake Total 360 ml 100 ml Balance 360 ml 100 ml Intake Oral 360 ml IV Total 100 ml # Voids 4 2 Laboratory Tests 08/24/18 06:10: White Blood Count 16.0H, Red Blood Count 5.29, Hemoglobin 13.1L, Hematocrit 39.0L, Mean Corpuscular Volume 74L, Mean Corpuscular Hemoglobin 24.7L, Mean Corpuscular Hemoglobin Concent 33.5, Red Cell Distribution Width 12.0, Platelet Count 223, Mean Platelet Volume 6.9, Neutrophils (%) (Auto) 80.2H, Lymphocytes ( %) (Auto) 13.6L, Monocytes (%) (Auto) 5.8, Eosinophils (%) (Auto) 0.1, Basophils (%) (Auto) 0.4, Differential Total Cells Counted 100, Neutrophils % ( Manual) 78H, Lymphocytes % (Manual) 16L, Monocytes % (Manual) 6, Eosinophils % ( Manual) 0, Basophils % (Manual) 0, Band Neutrophils 0, Other Cell Type Pathologist comment, Platelet Estimate Adequate, Platelet Morphology Normal, Anisocytosis 1+, Microcytosis 1+, Sodium Level 132L, Potassium Level 3.5, Chloride Level 99, Carbon Dioxide Level 25, Anion Gap 8, Blood Urea Nitrogen 18 , Creatinine 0.8, Estimat Glomerular Filtration Rate > 60, Glucose Level 220H, Calcium Level 8.5, Magnesium Level 1.9, Alpha Fetoprotein [Pending] Height (Feet): 5 Height (Inches): 6.00 Weight (Pounds): 151 General Appearance: no apparent distress, alert, confused, agitated Olivia Ortega MD Aug 24, 2018 15:39
[2018-08-24] MEDS ORDERED: NaCl 3% 500ml 500 ML IV ONE (16:00)
--- NOTE | 2018-08-24 16:30 | Consultation ---
DATE OF CONSULTATION: 08/24/2018 HEMATOLOGY/ONCOLOGY CONSULTATION CONSULTING PHYSICIAN: Nazario Ryan M.D. REQUESTING PHYSICIAN: Ramon Rashid M.D. REASON FOR CONSULTATION: Evaluation of anemia and leukocytosis. IDENTIFICATION: Dear Dr. Rashid: The patient is a 67-year-old male with past medical history significant for uncontrolled diabetes, blood sugar 216 upon admission to the hospital. Endocrinology Service has been consulted, noted to have leukocytosis of 15,000. Complaining of abdominal pain. CT scan was completed of the abdomen and pelvis as well as MRI of the abdomen and showed left lobe liver lesion, no longer noted on this MRI compared to prior imaging. Chest x-ray was reviewed and previously demonstrated atelectasis noted. In addition, the patient's blood sugar is currently better controlled this morning 217. Hematology Service was consulted for further evaluation of leukocytosis. PAST MEDICAL HISTORY: Diabetes, hypertension, CAD, and TIA. PAST SURGICAL HISTORY: None noted. FAMILY HISTORY: Noncontributory. SOCIAL HISTORY: Lives in a senior living facility. REVIEW OF SYSTEMS: Difficult to obtain. LABORATORY DATA: WBC 16.2, hemoglobin 13, hematocrit 39, and platelet count 240,000. BUN of 6 and creatinine 0.6. A1c of 9.7. Uric acid 2.2. Magnesium 1.4. CRP of 5. ASSESSMENT AND RECOMMENDATIONS: 1. Leukocytosis secondary to hyperosmolar hyperglycemia. The patient started on Levemir as well as NovoLog 5 units before each meal and metformin as well and insulin sliding scale. Closely monitored for improvement. A1c was checked and it was 9.7. Therefore, poorly controlled. 2. Anemia due to underlying chronic disease. Continue to closely monitor. 3. Hyperglycemia as per Endocrinology followup. 4. Abdominal pain. Imaging has been reviewed. No evidence of infectious etiology at this time. 5. Hypertension, systolic blood pressure . 6. Recent EGD and colonoscopy in November 2017. Some erosions noted. I appreciate the consultation. Nazario Ryan M.D. DR: JOEY JOB#: [id number] CC:
[2018-08-24] MEDS: Docusate 100mg cap ORAL SCH (17:37)
[2018-08-24] MEDS: Tamsulosin 0.4mg cap ORAL SCH (21:11)
[2018-08-24] MEDS: Donepezil 10mg tab ORAL SCH (21:11)
[2018-08-24] MEDS: Metoprolol 25mg tab ORAL SCH (21:11)
[2018-08-25] VITALS (7 sets, daily range): BP systolic 104–126; BP diastolic 57–81
[2018-08-25] MEDS: metFORMIN 500mg tab ORAL SCH ×3 (05:35→17:12)
[2018-08-25] MEDS: NovoLOG Insulin Flexpen SUBQ SCH ×7 (05:38→20:39)
--- NOTE | 2018-08-25 07:07 | General Progress Note ---
Assessment/Plan Problem List: (1) Diabetes mellitus out of control ICD Codes: E11.65 - Type 2 diabetes mellitus with hyperglycemia SNOMED: 406081188 (2) hyper glycemia Assessment/Plan continue Levemir 18 units continue Novolog 6 units ac tid continue Metformin 500 mg tid continue NISS Subjective Allergies: Coded Allergies: No Known Allergies (Unverified , 05/25/16) All Systems: reviewed and negative except above Subjective events noted Objective Last 24 Hour Vital Signs Date Time Temp Pulse Resp B/P (MAP) Pulse Ox O2 Delivery O2 Flow Rate FiO2 08/25/18 04:00 97.6 72 16 104/57 (73) 94 08/25/18 00:00 97.7 88 16 117/76 (90) 95 08/24/18 21:11 104 114/83 08/24/18 21:00 Room Air 08/24/18 20:00 99.2 104 18 114/83 (93) 96 08/24/18 16:32 98.3 114 20 138/90 (106) 95 08/24/18 15:41 98.3 08/24/18 14:15 100.8 117 18 111/88 (96) 92 08/24/18 12:00 100.2 113 19 124/85 (98) 94 08/24/18 09:00 Room Air 08/24/18 08:32 98.6 104 19 115/80 (92) 94 08/24/18 08:28 115/80 08/24/18 08:27 104 115/80 Intake and Output 08/24/18 08/25/18 18:59 06:59 Intake Total 545 ml Output Total 250 ml 600 ml Balance 295 ml -600 ml Intake Oral 545 ml Output Urine Total 250 ml 600 ml # Voids 2 Height (Feet): 5 Height (Inches): 6.00 Weight (Pounds): 151 General Appearance: no apparent distress Neck: normal alignment Cardiovascular: normal rate Respiratory/Chest: lungs clear Abdomen: normal bowel sounds Pelvis: normal external exam Objective Current Medications Medications (Trade) Dose Ordered Sig/Mariza Route PRN Reason Start Time Stop Time Status Last Admin Dose Admin Acetaminophen (Tylenol) 650 mg Q6H PRN ORAL Mild Pain/Temp > 100.5 08/24/18 14:15 09/23/18 14:14 12/5/18 15:11 Aspirin (Ecotrin) 81 mg DAILY ORAL 08/23/18 09:00 09/22/18 08:59 08/24/18 08:22 Atorvastatin Calcium (Lipitor) 10 mg QHS ORAL 08/24/18 21:00 09/21/18 20:59 08/24/18 21:11 Bisacodyl (Dulcolax) 5 mg DAILYPRN PRN ORAL Constipation 08/22/18 19:00 09/21/18 18:59 Ceftriaxone Sodium 1 gm/ Dextrose 55 ml @ 110 mls/hr Q24H IVPB 08/23/18 13:00 08/30/18 12:59 08/24/18 13:53 Dextrose (Dextrose 50%) 25 ml Q30M PRN IV Hypoglycemia 08/23/18 07:45 09/22/18 07:44 Dextrose (Dextrose 50%) 50 ml Q30M PRN IV Hypoglycemia 08/23/18 07:45 09/22/18 07:44 Docusate Sodium (Colace) 100 mg TID ORAL 08/24/18 18:00 09/21/18 20:59 08/24/18 17:37 Donepezil HCl (Aricept) 10 mg QHS ORAL 08/22/18 21:00 09/21/18 20:59 08/24/18 21:11 Duloxetine HCl (Cymbalta) 80 mg DAILY ORAL 08/23/18 09:00 09/22/18 08:59 08/24/18 08:22 Furosemide (Lasix) 10 mg EVERY 6 HOURS IV 08/24/18 18:00 09/23/18 17:59 08/25/18 05:35 Gadobutrol (Gadavist) 7.5 mmol NOW PRN IV Radiology Procedure 08/23/18 14:00 08/27/18 13:51 Heparin Sodium (Porcine) (Heparin 5000 units/ml) 5,000 units EVERY 12 HOURS SUBQ 08/23/18 09:00 09/22/18 08:59 08/24/18 21:13 Insulin Aspart (NovoLOG) BEFORE MEALS AND HS SUBQ 08/22/18 21:00 09/21/18 20:59 08/25/18 05:38 Insulin Aspart (NovoLOG) 6 units NOVOTIAC SUBQ 08/24/18 11:50 09/22/18 11:49 08/25/18 05:38 Insulin Detemir (Levemir) 18 units DAILY SUBQ 08/24/18 09:00 09/22/18 08:59 08/24/18 08:44 Lisinopril (Zestril) 5 mg DAILY ORAL 08/25/18 09:00 09/23/18 08:59 Magnesium Hydroxide (Mom) 30 ml Q4H PRN ORAL Constipation 08/22/18 20:30 09/21/18 18:59 Metformin HCl (Glucophage) 500 mg TIAC ORAL 08/24/18 11:30 09/23/18 11:29 08/25/18 05:35 Metoprolol Tartrate (Lopressor) 25 mg Q12HR ORAL 08/24/18 21:00 09/22/18 20:59 08/24/18 21:11 Multivitamins Therapeutic (Therapeutic Multivitamin) 1 ea DAILY ORAL 08/23/18 09:00 09/22/18 08:59 08/24/18 08:22 Pantoprazole (Protonix) 40 mg DAILY ORAL 08/23/18 09:00 09/22/18 08:59 08/24/18 08:23 Sennosides (Senokot) 8.6 mg DAILY ORAL 08/23/18 09:00 09/21/18 18:59 08/24/18 08:23 Sodium Chloride 500 ml @ 30 mls/hr ONCE ONCE IV 08/24/18 16:00 08/25/18 08:39 08/24/18 16:49 Tamsulosin HCl (Flomax) 0.4 mg QHS ORAL 08/23/18 21:00 09/22/18 08:59 08/24/18 21:11 Item Value Date Time Bedside Blood Glucose 162 mg/dl H 08/25/18 0630 Bedside Blood Glucose 200 mg/dl H 08/24/18 2113 Bedside Blood Glucose 188 mg/dl H 08/24/18 1735 Bedside Blood Glucose 174 mg/dl H 08/24/18 1253 Bedside Blood Glucose 217 mg/dl H 08/24/18 0844 Delvis Gray MD Aug 25, 2018 07:07
[2018-08-25] MEDS: Lisinopril 2.5mg tab ORAL SCH (08:58)
[2018-08-25] MEDS: Metoprolol 25mg tab ORAL SCH ×2 (08:58→20:35)
[2018-08-25] MEDS: Docusate 100mg cap ORAL SCH ×3 (09:05→18:31)
[2018-08-25] MEDS: Sennosides 8.6mg tab ORAL SCH (09:06)
[2018-08-25] MEDS: Multivitamin w/Minerals tab ORAL SCH (09:06)
[2018-08-25] MEDS: Aspirin EC 81mg tab ORAL SCH (09:06)
[2018-08-25] MEDS: Heparin 5000 units/ml inj SUBQ SCH ×2 (09:07→20:37)
[2018-08-25] MEDS: Levemir Flexpen SUBQ SCH (09:08)
--- NOTE | 2018-08-25 10:16 | GI Progress Note ---
Assessment/Plan Problems: (1) encephalopathy due to toxin (2) Liver lesion ICD Codes: K76.9 - Liver disease, unspecified SNOMED: 067649360 (3) Peptic ulcer disease ICD Codes: K27.9 - Peptic ulcer, site unspecified, unspecified as acute or chronic, without hemorrhage or perforation SNOMED: 64001703 (4) hyper glycemia (5) Cholelithiasis ICD Codes: K80.20 - Calculus of gallbladder without cholecystitis without obstruction SNOMED: 071924583 (6) Coffee ground emesis ICD Codes: K92.0 - Hematemesis SNOMED: 08396472 Status: stable Status Narrative Seen with Dr. Valenzuela. Assessment/Plan recent EGD/colonoscopy this year November 2017. 1. A 3 to 4 cm hiatal hernia. 2. Lower esophageal reflux erosions consistent with gastroesophageal reflux. 3. Normal colonoscopy including 10 cm of terminal ileum, although visualization was somewhat suboptimal. history of iron deficiency MRI reviewed, the prior liver lesion not seen recent GI procedures, so no plans for this admission DM management advance diet to ADA diet MRI ordered to evaluate liver mass. ppi zofran prn fu labs, AFP The patient was seen and examined at bedside and all new and available data was reviewed in the patients chart. I agree with the above findings, impression and plan. (Patient seen earlier today. Signature stamp does not reflect patient encounter time.). - Keith Valenzuela MD Subjective Gastrointestinal/Abdominal: Reports: no symptoms Objective Last 24 Hour Vital Signs Date Time Temp Pulse Resp B/P (MAP) Pulse Ox O2 Delivery O2 Flow Rate FiO2 08/25/18 08:58 90 106/81 08/25/18 08:58 106/81 08/25/18 08:57 90 106/81 (89) 08/25/18 08:00 98.2 82 18 106/72 (83) 93 08/25/18 04:00 97.6 72 16 104/57 (73) 94 08/25/18 00:00 97.7 88 16 117/76 (90) 95 08/24/18 21:11 104 114/83 08/24/18 21:00 Room Air 08/24/18 20:00 99.2 104 18 114/83 (93) 96 08/24/18 16:32 98.3 114 20 138/90 (106) 95 08/24/18 15:41 98.3 08/24/18 14:15 100.8 117 18 111/88 (96) 92 08/24/18 12:00 100.2 113 19 124/85 (98) 94 Intake and Output 08/24/18 08/25/18 18:59 06:59 Intake Total 545 ml Output Total 250 ml 600 ml Balance 295 ml -600 ml Intake Oral 545 ml Output Urine Total 250 ml 600 ml # Voids 2 Height (Feet): 5 Height (Inches): 6.00 Weight (Pounds): 151 General Appearance: WD/WN, no apparent distress, alert Cardiovascular: normal rate Respiratory/Chest: normal breath sounds, no respiratory distress Abdominal Exam: normal bowel sounds, non tender, soft Extremities: normal range of motion, non-tender Indira Infante NP Aug 25, 2018 10:16
--- NOTE | 2018-08-25 12:09 | Infectious Diseases Prog Note ---
Assessment/Plan Assessment/Plan A; Sepsis, SIRS DM with hyperglycemia Cholelithiasis HPN Alzheimer disease Fever P: continue Rocephin Subjective ROS Limited/Unobtainable: Yes Constitutional: Reports: no symptoms Gastrointestinal/Abdominal: Reports: other - RUQ pain Allergies: Coded Allergies: No Known Allergies (Unverified , 05/25/16) Objective Vital Signs Last 24 Hour Vital Signs Date Time Temp Pulse Resp B/P (MAP) Pulse Ox O2 Delivery O2 Flow Rate FiO2 08/25/18 09:00 Room Air 08/25/18 08:58 90 106/81 08/25/18 08:58 106/81 08/25/18 08:57 90 106/81 (89) 08/25/18 08:00 98.2 82 18 106/72 (83) 93 08/25/18 04:00 97.6 72 16 104/57 (73) 94 08/25/18 00:00 97.7 88 16 117/76 (90) 95 08/24/18 21:11 104 114/83 08/24/18 21:00 Room Air 08/24/18 20:00 99.2 104 18 114/83 (93) 96 08/24/18 16:32 98.3 114 20 138/90 (106) 95 08/24/18 15:41 98.3 08/24/18 14:15 100.8 117 18 111/88 (96) 92 Height (Feet): 5 Height (Inches): 6.00 Weight (Pounds): 151 General Appearance: no acute distress Respiratory/Chest: lungs clear Cardiovascular: normal rate Abdomen: soft, non tender Extremities: no edema Neurologic/Psychiatric: alert, responsive Microbiology Date/Time Source Procedure Growth Status 08/22/18 13:31 Nasal Nares MRSA Culture - Final NO METHICILLIN RESISTANT STAPH AUREUS... Complete 08/22/18 13:31 Rectum - Final NO CARBAPENEM-RESISTANT ENTEROBACTERI... Complete 08/22/18 13:31 Rectum VRE Culture - Final NO VANCOMYCIN RESISTANT ENTEROCOCCUS ... Complete Current Medications Medications (Trade) Dose Ordered Sig/Mariza Route PRN Reason Start Time Stop Time Status Last Admin Dose Admin Acetaminophen (Tylenol) 650 mg Q6H PRN ORAL Mild Pain/Temp > 100.5 08/24/18 14:15 09/23/18 14:14 08/24/18 15:11 Aspirin (Ecotrin) 81 mg DAILY ORAL 08/23/18 09:00 09/22/18 08:59 08/25/18 09:06 Atorvastatin Calcium (Lipitor) 10 mg QHS ORAL 08/24/18 21:00 09/21/18 20:59 08/24/18 21:11 Bisacodyl (Dulcolax) 5 mg DAILYPRN PRN ORAL Constipation 08/22/18 19:00 09/21/18 18:59 Ceftriaxone Sodium 1 gm/ Dextrose 55 ml @ 110 mls/hr Q24H IVPB 08/23/18 13:00 08/30/18 12:59 08/24/18 13:53 Dextrose (Dextrose 50%) 25 ml Q30M PRN IV Hypoglycemia 08/23/18 07:45 09/22/18 07:44 Dextrose (Dextrose 50%) 50 ml Q30M PRN IV Hypoglycemia 08/23/18 07:45 09/22/18 07:44 Docusate Sodium (Colace) 100 mg TID ORAL 08/24/18 18:00 09/21/18 20:59 08/25/18 09:05 Donepezil HCl (Aricept) 10 mg QHS ORAL 08/22/18 21:00 09/21/18 20:59 08/24/18 21:11 Duloxetine HCl (Cymbalta) 80 mg DAILY ORAL 08/23/18 09:00 09/22/18 08:59 08/25/18 09:06 Furosemide (Lasix) 10 mg EVERY 6 HOURS IV 08/24/18 18:00 09/23/18 17:59 08/25/18 05:35 Gadobutrol (Gadavist) 7.5 mmol NOW PRN IV Radiology Procedure 08/23/18 14:00 08/27/18 13:51 Heparin Sodium (Porcine) (Heparin 5000 units/ml) 5,000 units EVERY 12 HOURS SUBQ 08/23/18 09:00 09/22/18 08:59 08/25/18 09:07 Insulin Aspart (NovoLOG) BEFORE MEALS AND HS SUBQ 08/22/18 21:00 09/21/18 20:59 08/25/18 05:38 Insulin Aspart (NovoLOG) 6 units NOVOTIAC SUBQ 08/24/18 11:50 09/22/18 11:49 08/25/18 05:38 Insulin Detemir (Levemir) 18 units DAILY SUBQ 08/24/18 09:00 09/22/18 08:59 08/25/18 09:08 Lisinopril (Zestril) 5 mg DAILY ORAL 08/25/18 09:00 09/23/18 08:59 Magnesium Hydroxide (Mom) 30 ml Q4H PRN ORAL Constipation 08/22/18 20:30 09/21/18 18:59 Metformin HCl (Glucophage) 500 mg TIAC ORAL 08/24/18 11:30 09/23/18 11:29 08/25/18 11:53 Metoprolol Tartrate (Lopressor) 25 mg Q12HR ORAL 08/24/18 21:00 09/22/18 20:59 08/24/18 21:11 Multivitamins Therapeutic (Therapeutic Multivitamin) 1 ea DAILY ORAL 08/23/18 09:00 09/22/18 08:59 08/25/18 09:06 Pantoprazole (Protonix) 40 mg DAILY ORAL 08/23/18 09:00 09/22/18 08:59 08/25/18 09:06 Sennosides (Senokot) 8.6 mg DAILY ORAL 08/23/18 09:00 09/21/18 18:59 08/25/18 09:06 Tamsulosin HCl (Flomax) 0.4 mg QHS ORAL 08/23/18 21:00 09/22/18 08:59 08/24/18 21:11 Canelo Gann MD Aug 25, 2018 12:09
--- NOTE | 2018-08-25 12:40 | Nephrology Progress Note ---
Assessment/Plan Problem List: (1) Diabetes mellitus out of control (2) Leukocytosis (3) Sepsis Assessment DM OOC HypoNatremia HTN CVA SEPSIS Plan no labs today Antibiotics BS control BP control Monitor renal parameters trial 3% saline and lasix given 08/24 Subjective ROS Limited/Unobtainable: No Constitutional: Reports: malaise Objective Objective Last 24 Hour Vital Signs Date Time Temp Pulse Resp B/P (MAP) Pulse Ox O2 Delivery O2 Flow Rate FiO2 08/25/18 09:00 Room Air 08/25/18 08:58 90 106/81 08/25/18 08:58 106/81 08/25/18 08:57 90 106/81 (89) 08/25/18 08:00 98.2 82 18 106/72 (83) 93 08/25/18 04:00 97.6 72 16 104/57 (73) 94 08/25/18 00:00 97.7 88 16 117/76 (90) 95 08/24/18 21:11 104 114/83 08/24/18 21:00 Room Air 08/24/18 20:00 99.2 104 18 114/83 (93) 96 08/24/18 16:32 98.3 114 20 138/90 (106) 95 08/24/18 15:41 98.3 08/24/18 14:15 100.8 117 18 111/88 (96) 92 Intake and Output 08/24/18 08/25/18 19:00 07:00 Intake Total 545 ml Output Total 250 ml 600 ml Balance 295 ml -600 ml Intake Oral 545 ml Output Urine Total 250 ml 600 ml # Voids 2 Height (Feet): 5 Height (Inches): 6.00 Weight (Pounds): 151 General Appearance: no apparent distress Objective no change Kiran Patricia MD Aug 25, 2018 12:40
--- NOTE | 2018-08-25 13:02 | General Progress Note ---
Assessment/Plan Status: stable Assessment/Plan 1. Leukocytosis secondary to sepsis. ID is following, appreciate recs. --> Closely monitor and trend wbc for improvement. --> Peripheral has been ordered, results are pending --> Medications have been reviewed --> Imaging has been reviewed, reveals cholelithiasis --> Blood cultures and urine cultures are pending. --> Pt on IV abx. 2. Anemia due to underlying chronic disease. Current Hgb goal >13, no w/u required at this time. --> Continue to closely monitor for stability. 3. Hyperglycemia, endocrinology is following, appreciate recs. --> The patient started on Levemir as well as NovoLog 5 units before each meal and metformin as well and insulin sliding scale. --> A1c was checked and it was 9.7. Therefore, poorly controlled. 4. Abdominal pain. Imaging has been reviewed. No evidence of infectious etiology at this time. 5. Hypertension. 6. Recent EGD and colonoscopy in November 2017. Some erosions noted. GREATLY APPRECIATE CONSULTATION. Subjective Date patient seen: Aug 25, 2018 Hematologic/Lymphatic: Reports: anemia Allergies: Coded Allergies: No Known Allergies (Unverified , 05/25/16) All Systems: reviewed and negative except above Subjective Pt awake and alert. No acute events. WBC remains elevated, on abx. Objective Last 24 Hour Vital Signs Date Time Temp Pulse Resp B/P (MAP) Pulse Ox O2 Delivery O2 Flow Rate FiO2 08/25/18 09:00 Room Air 08/25/18 08:58 90 106/81 08/25/18 08:58 106/81 08/25/18 08:57 90 106/81 (89) 08/25/18 08:00 98.2 82 18 106/72 (83) 93 08/25/18 04:00 97.6 72 16 104/57 (73) 94 08/25/18 00:00 97.7 88 16 117/76 (90) 95 08/24/18 21:11 104 114/83 08/24/18 21:00 Room Air 08/24/18 20:00 99.2 104 18 114/83 (93) 96 08/24/18 16:32 98.3 114 20 138/90 (106) 95 08/24/18 15:41 98.3 08/24/18 14:15 100.8 117 18 111/88 (96) 92 Intake and Output 08/24/18 08/25/18 19:00 07:00 Intake Total 545 ml Output Total 250 ml 600 ml Balance 295 ml -600 ml Intake Oral 545 ml Output Urine Total 250 ml 600 ml # Voids 2 Height (Feet): 5 Height (Inches): 6.00 Weight (Pounds): 151 Objective General Appearance: well appearing, no apparent distress, lethargic Head: normocephalic EENT: PERRL/EOMI, normal ENT inspection Neck: supple Respiratory: normal breath sounds, no respiratory distress Cardiovascular: normal rate Gastrointestinal: normal inspection, non tender, soft, normal bowel sounds, non -distended Rectal: deferred Genitourinary: deferred Musculoskeletal: normal inspection, back normal Neurologic: alert, responsive Psychiatric: normal inspection, judgement/insight normal, memory normal Skin: normal inspection, normal color, no rash, warm/dry, palpation normal, well hydrated Lymphatic: normal inspection, no adenopathy Nazario Ryan MD Aug 25, 2018 13:02
[2018-08-25] MEDS: cefTRIAXone 1 GM in D5W 55 ML IVPB SCH (14:32)
[2018-08-25] MEDS: Tamsulosin 0.4mg cap ORAL SCH (20:32)
[2018-08-25] MEDS: Donepezil 10mg tab ORAL SCH (20:32)
--- NOTE | 2018-08-25 23:18 | General Progress Note ---
Assessment/Plan Problem List: (1) encephalopathy due to toxin Status: stable, progressing Assessment/Plan low dose zyprexa 2.5 mg qhs ativan prn the pt lacks capacity to make decisions. Subjective Neurologic/Psychiatric: Reports: anxiety, depressed Allergies: Coded Allergies: No Known Allergies (Unverified , 05/25/16) Subjective the pt is confused and has waxing and waning of consciousness Objective Last 24 Hour Vital Signs Date Time Temp Pulse Resp B/P (MAP) Pulse Ox O2 Delivery O2 Flow Rate FiO2 08/25/18 20:35 85 122/84 08/25/18 20:00 98.7 82 18 126/81 (96) 97 08/25/18 16:04 98.1 94 18 117/78 (91) 08/25/18 12:00 97.6 87 18 107/71 (83) 94 08/25/18 09:00 Room Air 08/25/18 08:58 90 106/81 08/25/18 08:58 106/81 08/25/18 08:57 90 106/81 (89) 08/25/18 08:00 98.2 82 18 106/72 (83) 93 08/25/18 04:00 97.6 72 16 104/57 (73) 94 08/25/18 00:00 97.7 88 16 117/76 (90) 95 Intake and Output 08/24/18 08/25/18 19:00 07:00 Intake Total 545 ml Output Total 250 ml 600 ml Balance 295 ml -600 ml Intake Oral 545 ml Output Urine Total 250 ml 600 ml # Voids 2 Height (Feet): 5 Height (Inches): 6.00 Weight (Pounds): 151 General Appearance: no apparent distress, alert, confused Olivia Ortega MD Aug 25, 2018 23:18
[2018-08-26] VITALS: BP 109/73
[2018-08-26 04:00] VITALS: BP 110/75
[2018-08-26] MEDS: metFORMIN 500mg tab ORAL SCH ×2 (05:39→12:07)
[2018-08-26 06:29] LABS: ANION GAP 7 mmol/L (5-15); BLOOD UREA NITROGEN 18 mg/dL (7-18); CALCIUM 8.3 MG/DL (8.5-10.1); CARBON DIOXIDE 29 MMOL/L (21-32); CHLORIDE 103 MMOL/L (98-107); CREATININE 0.8 MG/DL (0.55-1.30); POTASSIUM 3.4 MMOL/L (3.5-5.1); SODIUM 139 MMOL/L (136-145)
[2018-08-26 06:32] LABS: BASOPHILS % (AUTO) 0.4 % (0.0-2.0); EOSINOPHILS % (AUTO) 0.8 % (0.0-3.0); HEMATOCRIT 33.3 % (42.0-52.0); HEMOGLOBIN 10.6 G/DL (14.2-18.0); LYMPHOCYTES % (AUTO) 19.3 % (20.0-45.0); MEAN CORPUSCULAR VOLUME 75 FL (80-99); MONOCYTES % (AUTO) 5.2 % (1.0-10.0); NEUTROPHILS % (AUTO) 74.4 % (45.0-75.0); PLATELET COUNT 230 K/UL (150-450); RED BLOOD COUNT 4.47 M/UL (4.70-6.10); RED CELL DISTRIBUTION WIDTH 12.3 % (11.6-14.8)
[2018-08-26 06:52] LABS: ALANINE AMINOTRANSFERASE 30 U/L (12-78); ALBUMIN 2.6 G/DL (3.4-5.0); ALKALINE PHOSPHATASE 95 U/L (46-116); ASPARTATE AMINO TRANSFERASE 24 U/L (15-37); BILIRUBIN,DIRECT 0.2 MG/DL (0.0-0.3); BILIRUBIN,TOTAL 0.5 MG/DL (0.2-1.0); PHOSPHORUS 2.9 MG/DL (2.5-4.9)
[2018-08-26] MEDS: NovoLOG Insulin Flexpen SUBQ SCH ×4 (06:52→12:10)
--- NOTE | 2018-08-26 06:53 | General Progress Note ---
Assessment/Plan Assessment/Plan 1. Leukocytosis secondary to sepsis. ID is following, appreciate recs. --> Closely monitor and trend wbc for improvement. --> Peripheral has been ordered, is within normal limits --> Medications have been reviewed --> Imaging has been reviewed, reveals cholelithiasis --> Blood cultures and urine cultures reviewed 08/24 ngtd --> Pt on IV abx. 2. Anemia due to underlying chronic disease. Current Hgb goal >10, no w/u required at this time. --> Continue to closely monitor for stability. --> if less than 10, consider w/u 3. Hyperglycemia, endocrinology is following, appreciate recs. --> The patient started on Levemir as well as NovoLog 5 units before each meal and metformin as well and insulin sliding scale. --> A1c was checked and it was 9.7. Therefore, poorly controlled. 4. Abdominal pain. Imaging has been reviewed. No evidence of infectious etiology at this time. 5. Hypertension. 6. Recent EGD and colonoscopy in November 2017. Some erosions noted. GREATLY APPRECIATE CONSULTATION. Subjective Constitutional: Denies: no symptoms, chills, diaphoresis, fever, malaise, weakness, other HEENT: Denies: no symptoms, eye pain, blurred vision, tearing, double vision, ear pain, ear discharge, nose pain, nose congestion, throat pain, throat swelling, mouth pain, mouth swelling, other Cardiovascular: Denies: no symptoms, chest pain, edema, irregular heart rate, lightheadedness, palpitations, syncope, other Respiratory: Denies: no symptoms, cough, orthopnea, shortness of breath, SOB with excertion, SOB at rest, sputum, stridor, wheezing, other Gastrointestinal/Abdominal: Denies: no symptoms, abdomen distended, abdominal pain, black stools, tarry stools, blood in stool, constipated, diarrhea, difficulty swallowing, nausea, poor appetite, poor fluid intake, rectal bleeding , vomiting, other Genitourinary: Denies: no symptoms, burning, discharge, frequency, flank pain, hematuria, incontinence, pain, urgency, other Neurologic/Psychiatric: Denies: no symptoms, anxiety, depressed, emotional problems, headache, numbness, paresthesia, pre-existing deficit, seizure, tingling, tremors, weakness, other Allergies: Coded Allergies: No Known Allergies (Unverified , 05/25/16) Subjective Pt awake and alert. No acute events. WBC is improved, on abx. was given lasix Objective Last 24 Hour Vital Signs Date Time Temp Pulse Resp B/P (MAP) Pulse Ox O2 Delivery O2 Flow Rate FiO2 08/26/18 04:00 98.3 78 19 110/75 (87) 96 08/26/18 00:00 98.9 77 18 109/73 (85) 96 08/25/18 21:00 Room Air 08/25/18 20:35 85 122/84 08/25/18 20:00 98.7 82 18 126/81 (96) 97 08/25/18 16:04 98.1 94 18 117/78 (91) 08/25/18 12:00 97.6 87 18 107/71 (83) 94 08/25/18 09:00 Room Air 08/25/18 08:58 90 106/81 08/25/18 08:58 106/81 08/25/18 08:57 90 106/81 (89) 08/25/18 08:00 98.2 82 18 106/72 (83) 93 Intake and Output 08/25/18 08/26/18 19:00 07:00 Intake Total 560 ml 420 ml Balance 560 ml 420 ml Intake Oral 560 ml 420 ml # Voids 2 3 Laboratory Tests 08/26/18 05:55: White Blood Count 10.0, Red Blood Count 4.47L, Hemoglobin 10.6L, Hematocrit 33.3L, Mean Corpuscular Volume 75L, Mean Corpuscular Hemoglobin 23.7L, Mean Corpuscular Hemoglobin Concent 31.8L, Red Cell Distribution Width 12.3, Platelet Count 230, Mean Platelet Volume 6.8, Neutrophils (%) (Auto) 74.4, Lymphocytes (%) (Auto) 19.3L, Monocytes (%) (Auto) 5.2, Eosinophils (%) (Auto) 0.8, Basophils (%) (Auto) 0.4, Sodium Level 139, Potassium Level 3.4L, Chloride Level 103, Carbon Dioxide Level 29, Anion Gap 7, Blood Urea Nitrogen 18, Creatinine 0.8, Estimat Glomerular Filtration Rate > 60, Glucose Level 126H, Uric Acid [Pending], Calcium Level 8.3L, Phosphorus Level [Pending], Magnesium Level [Pending], Total Bilirubin [Pending], Direct Bilirubin [Pending], Aspartate Amino Transf (AST/SGOT) [Pending], Alanine Aminotransferase (ALT/SGPT ) [Pending], Alkaline Phosphatase [Pending], Total Protein [Pending], Albumin [ Pending] Height (Feet): 5 Height (Inches): 6.00 Weight (Pounds): 151 Objective General Appearance: well appearing, no apparent distress, ++ lethargic Head: normocephalic EENT: PERRL/EOMI, normal ENT inspection Neck: supple Respiratory: normal breath sounds, no respiratory distress Cardiovascular: normal rate Gastrointestinal: normal inspection, non tender, soft, normal bowel sounds, non -distended Genitourinary: deferred Musculoskeletal: normal inspection, back normal Neurologic: alert, responsive Psychiatric: normal inspection, judgement/insight normal, memory normal Skin: normal inspection, normal color, no rash, warm/dry, palpation normal, well hydrated Lymphatic: normal inspection, no adenopathy Nazario Ryan MD Aug 26, 2018 06:53
[2018-08-26 08:00] VITALS: BP 117/74
[2018-08-26] MEDS: Aspirin EC 81mg tab ORAL SCH ×2 (09:00→09:35)
[2018-08-26] MEDS: Docusate 100mg cap ORAL SCH ×3 (09:00→12:07)
[2018-08-26] MEDS: Multivitamin w/Minerals tab ORAL SCH ×2 (09:00→09:34)
[2018-08-26] MEDS: Sennosides 8.6mg tab ORAL SCH ×2 (09:00→09:34)
[2018-08-26] MEDS: Lisinopril 2.5mg tab ORAL SCH ×2 (09:00→09:36)
[2018-08-26] MEDS: Magnesium Oxide 400mg tab ORAL SCH ×3 (09:00→12:07)
[2018-08-26] MEDS: Metoprolol 25mg tab ORAL SCH ×2 (09:00→09:35)
[2018-08-26] MEDS: Levemir Flexpen SUBQ SCH ×2 (09:00→09:38)
[2018-08-26] MEDS: Heparin 5000 units/ml inj SUBQ SCH ×2 (09:00→09:37)
--- NOTE | 2018-08-26 10:38 | GI Progress Note ---
Assessment/Plan Problems: (1) encephalopathy due to toxin (2) Liver lesion ICD Codes: K76.9 - Liver disease, unspecified SNOMED: 380304464 (3) Peptic ulcer disease ICD Codes: K27.9 - Peptic ulcer, site unspecified, unspecified as acute or chronic, without hemorrhage or perforation SNOMED: 74551454 (4) hyper glycemia (5) Cholelithiasis ICD Codes: K80.20 - Calculus of gallbladder without cholecystitis without obstruction SNOMED: 889413859 (6) Coffee ground emesis ICD Codes: K92.0 - Hematemesis SNOMED: 30746922 Status: stable Status Narrative Discussed with Dr. Valenzuela. Assessment/Plan recent EGD/colonoscopy this year November 2017. 1. A 3 to 4 cm hiatal hernia. 2. Lower esophageal reflux erosions consistent with gastroesophageal reflux. 3. Normal colonoscopy including 10 cm of terminal ileum, although visualization was somewhat suboptimal. history of iron deficiency MRI reviewed, the prior liver lesion not seen AFP negative recent GI procedures, so no plans for this admission >> okay for DC per GI standpoint DM management advance diet to ADA diet ppi zofran prn fu labs The patient was seen and examined at bedside and all new and available data was reviewed in the patients chart. I agree with the above findings, impression and plan. (Patient seen earlier today. Signature stamp does not reflect patient encounter time.). - Keith Valenzuela MD Subjective Subjective refusing am medication Objective Last 24 Hour Vital Signs Date Time Temp Pulse Resp B/P (MAP) Pulse Ox O2 Delivery O2 Flow Rate FiO2 08/26/18 09:00 Room Air 08/26/18 08:00 97.9 80 17 117/74 (88) 93 08/26/18 04:00 98.3 78 19 110/75 (87) 96 08/26/18 00:00 98.9 77 18 109/73 (85) 96 08/25/18 21:00 Room Air 08/25/18 20:35 85 122/84 08/25/18 20:00 98.7 82 18 126/81 (96) 97 08/25/18 16:04 98.1 94 18 117/78 (91) 08/25/18 12:00 97.6 87 18 107/71 (83) 94 Intake and Output 08/25/18 08/26/18 18:59 06:59 Intake Total 560 ml 420 ml Balance 560 ml 420 ml Intake Oral 560 ml 420 ml # Voids 2 3 Laboratory Tests Test 08/26/18 05:55 White Blood Count 10.0 K/UL (4.8-10.8) Red Blood Count 4.47 M/UL (4.70-6.10) L Hemoglobin 10.6 G/DL (14.2-18.0) L Hematocrit 33.3 % (42.0-52.0) L Mean Corpuscular Volume 75 FL (80-99) L Mean Corpuscular Hemoglobin 23.7 PG (27.0-31.0) L Mean Corpuscular Hemoglobin Concent 31.8 G/DL (32.0-36.0) L Red Cell Distribution Width 12.3 % (11.6-14.8) Platelet Count 230 K/UL (150-450) Mean Platelet Volume 6.8 FL (6.5-10.1) Neutrophils (%) (Auto) 74.4 % (45.0-75.0) Lymphocytes (%) (Auto) 19.3 % (20.0-45.0) L Monocytes (%) (Auto) 5.2 % (1.0-10.0) Eosinophils (%) (Auto) 0.8 % (0.0-3.0) Basophils (%) (Auto) 0.4 % (0.0-2.0) Sodium Level 139 MMOL/L (136-145) Potassium Level 3.4 MMOL/L (3.5-5.1) L Chloride Level 103 MMOL/L (98-107) Carbon Dioxide Level 29 MMOL/L (21-32) Anion Gap 7 mmol/L (5-15) Blood Urea Nitrogen 18 mg/dL (7-18) Creatinine 0.8 MG/DL (0.55-1.30) Estimat Glomerular Filtration Rate > 60 mL/min (>60) Glucose Level 126 MG/DL (74-106) H Uric Acid 3.9 MG/DL (2.6-7.2) Calcium Level 8.3 MG/DL (8.5-10.1) L Phosphorus Level 2.9 MG/DL (2.5-4.9) Magnesium Level 1.6 MG/DL (1.8-2.4) L Total Bilirubin 0.5 MG/DL (0.2-1.0) Direct Bilirubin 0.2 MG/DL (0.0-0.3) Aspartate Amino Transf (AST/SGOT) 24 U/L (15-37) Alanine Aminotransferase (ALT/SGPT) 30 U/L (12-78) Alkaline Phosphatase 95 U/L (46-116) Total Protein 7.3 G/DL (6.4-8.2) Albumin 2.6 G/DL (3.4-5.0) L Height (Feet): 5 Height (Inches): 6.00 Weight (Pounds): 151 General Appearance: WD/WN, no apparent distress, alert Cardiovascular: normal rate Respiratory/Chest: normal breath sounds, no respiratory distress Abdominal Exam: normal bowel sounds, non tender, soft Extremities: normal range of motion, non-tender Indira Infante NP Aug 26, 2018 10:38
--- NOTE | 2018-08-26 10:53 | Nephrology Progress Note ---
Assessment/Plan Problem List: (1) Hyponatremia (2) Diabetes mellitus out of control (3) Leukocytosis (4) Sepsis Assessment refuses meds ! DM OOC HypoNatremia resolved HTN CVA SEPSIS Plan Po KCL Antibiotics BS control BP control Monitor renal parameters trial 3% saline and lasix given 08/24 Subjective ROS Limited/Unobtainable: No Constitutional: Reports: malaise Objective Objective Last 24 Hour Vital Signs Date Time Temp Pulse Resp B/P (MAP) Pulse Ox O2 Delivery O2 Flow Rate FiO2 08/26/18 09:00 Room Air 08/26/18 08:00 97.9 80 17 117/74 (88) 93 08/26/18 04:00 98.3 78 19 110/75 (87) 96 08/26/18 00:00 98.9 77 18 109/73 (85) 96 08/25/18 21:00 Room Air 08/25/18 20:35 85 122/84 08/25/18 20:00 98.7 82 18 126/81 (96) 97 08/25/18 16:04 98.1 94 18 117/78 (91) 08/25/18 12:00 97.6 87 18 107/71 (83) 94 Intake and Output 08/25/18 08/26/18 18:59 06:59 Intake Total 560 ml 420 ml Balance 560 ml 420 ml Intake Oral 560 ml 420 ml # Voids 2 3 Laboratory Tests 08/26/18 05:55: White Blood Count 10.0, Red Blood Count 4.47L, Hemoglobin 10.6L, Hematocrit 33.3L, Mean Corpuscular Volume 75L, Mean Corpuscular Hemoglobin 23.7L, Mean Corpuscular Hemoglobin Concent 31.8L, Red Cell Distribution Width 12.3, Platelet Count 230, Mean Platelet Volume 6.8, Neutrophils (%) (Auto) 74.4, Lymphocytes (%) (Auto) 19.3L, Monocytes (%) (Auto) 5.2, Eosinophils (%) (Auto) 0.8, Basophils (%) (Auto) 0.4, Sodium Level 139, Potassium Level 3.4L, Chloride Level 103, Carbon Dioxide Level 29, Anion Gap 7, Blood Urea Nitrogen 18, Creatinine 0.8, Estimat Glomerular Filtration Rate > 60, Glucose Level 126H, Uric Acid 3.9, Calcium Level 8.3L, Phosphorus Level 2.9, Magnesium Level 1.6L, Total Bilirubin 0.5, Direct Bilirubin 0.2, Aspartate Amino Transf (AST/SGOT) 24 , Alanine Aminotransferase (ALT/SGPT) 30, Alkaline Phosphatase 95, Total Protein 7.3, Albumin 2.6L Height (Feet): 5 Height (Inches): 6.00 Weight (Pounds): 151 General Appearance: no apparent distress Objective no change Kiran Patricia MD Aug 26, 2018 10:53
[2018-08-26 12:00] VITALS: BP 117/77
[2018-08-26] MEDS: cefTRIAXone 1 GM in D5W 55 ML IVPB SCH (12:08)
--- NOTE | 2018-08-26 12:44 | General Progress Note ---
Assessment/Plan Problem List: (1) encephalopathy due to toxin Status: stable, progressing Assessment/Plan low dose zyprexa 2.5 mg qhs ativan prn the pt lacks capacity to make decisions. Subjective Neurologic/Psychiatric: Reports: anxiety Allergies: Coded Allergies: No Known Allergies (Unverified , 05/25/16) Subjective the pt is less confused and more alert Objective Last 24 Hour Vital Signs Date Time Temp Pulse Resp B/P (MAP) Pulse Ox O2 Delivery O2 Flow Rate FiO2 08/26/18 12:00 98.1 74 18 117/77 (90) 97 08/26/18 09:00 Room Air 08/26/18 08:00 97.9 80 17 117/74 (88) 93 08/26/18 04:00 98.3 78 19 110/75 (87) 96 08/26/18 00:00 98.9 77 18 109/73 (85) 96 08/25/18 21:00 Room Air 08/25/18 20:35 85 122/84 08/25/18 20:00 98.7 82 18 126/81 (96) 97 08/25/18 16:04 98.1 94 18 117/78 (91) Intake and Output 08/25/18 08/26/18 18:59 06:59 Intake Total 560 ml 420 ml Balance 560 ml 420 ml Intake Oral 560 ml 420 ml # Voids 2 3 Laboratory Tests 08/26/18 05:55: White Blood Count 10.0, Red Blood Count 4.47L, Hemoglobin 10.6L, Hematocrit 33.3L, Mean Corpuscular Volume 75L, Mean Corpuscular Hemoglobin 23.7L, Mean Corpuscular Hemoglobin Concent 31.8L, Red Cell Distribution Width 12.3, Platelet Count 230, Mean Platelet Volume 6.8, Neutrophils (%) (Auto) 74.4, Lymphocytes (%) (Auto) 19.3L, Monocytes (%) (Auto) 5.2, Eosinophils (%) (Auto) 0.8, Basophils (%) (Auto) 0.4, Sodium Level 139, Potassium Level 3.4L, Chloride Level 103, Carbon Dioxide Level 29, Anion Gap 7, Blood Urea Nitrogen 18, Creatinine 0.8, Estimat Glomerular Filtration Rate > 60, Glucose Level 126H, Uric Acid 3.9, Calcium Level 8.3L, Phosphorus Level 2.9, Magnesium Level 1.6L, Total Bilirubin 0.5, Direct Bilirubin 0.2, Aspartate Amino Transf (AST/SGOT) 24 , Alanine Aminotransferase (ALT/SGPT) 30, Alkaline Phosphatase 95, Total Protein 7.3, Albumin 2.6L Height (Feet): 5 Height (Inches): 6.00 Weight (Pounds): 151 General Appearance: no apparent distress, alert, confused Neurologic: responsive, depressed affect Olivia Ortega MD Aug 26, 2018 12:44
--- NOTE | 2018-08-26 14:42 | Infectious Diseases Prog Note ---
Assessment/Plan Assessment/Plan A; Sepsis, SIRS resolved DM with hyperglycemia Cholelithiasis HPN Alzheimer disease Fever resolved P: Agree with discharge Subjective ROS Limited/Unobtainable: Yes Constitutional: Reports: no symptoms Allergies: Coded Allergies: No Known Allergies (Unverified , 05/25/16) Objective Vital Signs Last 24 Hour Vital Signs Date Time Temp Pulse Resp B/P (MAP) Pulse Ox O2 Delivery O2 Flow Rate FiO2 08/26/18 12:00 98.1 74 18 117/77 (90) 97 08/26/18 09:00 Room Air 08/26/18 08:00 97.9 80 17 117/74 (88) 93 08/26/18 04:00 98.3 78 19 110/75 (87) 96 08/26/18 00:00 98.9 77 18 109/73 (85) 96 08/25/18 21:00 Room Air 08/25/18 20:35 85 122/84 08/25/18 20:00 98.7 82 18 126/81 (96) 97 08/25/18 16:04 98.1 94 18 117/78 (91) Height (Feet): 5 Height (Inches): 6.00 Weight (Pounds): 151 General Appearance: no acute distress HEENT: mucous membranes moist Respiratory/Chest: lungs clear Cardiovascular: normal rate Abdomen: soft, non tender Extremities: no edema Neurologic/Psychiatric: other - sleeping Microbiology Date/Time Source Procedure Growth Status 08/24/18 14:55 Blood Blood Culture - Preliminary NO GROWTH AFTER 24 HOURS Resulted 08/24/18 14:40 Blood Blood Culture - Preliminary NO GROWTH AFTER 24 HOURS Resulted Laboratory Tests Test 08/26/18 05:55 White Blood Count 10.0 K/UL (4.8-10.8) Red Blood Count 4.47 M/UL (4.70-6.10) L Hemoglobin 10.6 G/DL (14.2-18.0) L Hematocrit 33.3 % (42.0-52.0) L Mean Corpuscular Volume 75 FL (80-99) L Mean Corpuscular Hemoglobin 23.7 PG (27.0-31.0) L Mean Corpuscular Hemoglobin Concent 31.8 G/DL (32.0-36.0) L Red Cell Distribution Width 12.3 % (11.6-14.8) Platelet Count 230 K/UL (150-450) Mean Platelet Volume 6.8 FL (6.5-10.1) Neutrophils (%) (Auto) 74.4 % (45.0-75.0) Lymphocytes (%) (Auto) 19.3 % (20.0-45.0) L Monocytes (%) (Auto) 5.2 % (1.0-10.0) Eosinophils (%) (Auto) 0.8 % (0.0-3.0) Basophils (%) (Auto) 0.4 % (0.0-2.0) Sodium Level 139 MMOL/L (136-145) Potassium Level 3.4 MMOL/L (3.5-5.1) L Chloride Level 103 MMOL/L (98-107) Carbon Dioxide Level 29 MMOL/L (21-32) Anion Gap 7 mmol/L (5-15) Blood Urea Nitrogen 18 mg/dL (7-18) Creatinine 0.8 MG/DL (0.55-1.30) Estimat Glomerular Filtration Rate > 60 mL/min (>60) Glucose Level 126 MG/DL (74-106) H Uric Acid 3.9 MG/DL (2.6-7.2) Calcium Level 8.3 MG/DL (8.5-10.1) L Phosphorus Level 2.9 MG/DL (2.5-4.9) Magnesium Level 1.6 MG/DL (1.8-2.4) L Total Bilirubin 0.5 MG/DL (0.2-1.0) Direct Bilirubin 0.2 MG/DL (0.0-0.3) Aspartate Amino Transf (AST/SGOT) 24 U/L (15-37) Alanine Aminotransferase (ALT/SGPT) 30 U/L (12-78) Alkaline Phosphatase 95 U/L (46-116) Total Protein 7.3 G/DL (6.4-8.2) Albumin 2.6 G/DL (3.4-5.0) L Current Medications Medications (Trade) Dose Ordered Sig/Mariza Route PRN Reason Start Time Stop Time Status Last Admin Dose Admin Acetaminophen (Tylenol) 650 mg Q6H PRN ORAL Mild Pain/Temp > 100.5 08/24/18 14:15 09/23/18 14:14 08/24/18 15:11 Aspirin (Ecotrin) 81 mg DAILY ORAL 08/23/18 09:00 09/22/18 08:59 08/25/18 09:06 Atorvastatin Calcium (Lipitor) 10 mg QHS ORAL 08/24/18 21:00 09/21/18 20:59 08/25/18 20:35 Bisacodyl (Dulcolax) 5 mg DAILYPRN PRN ORAL Constipation 08/22/18 19:00 09/21/18 18:59 Ceftriaxone Sodium 1 gm/ Dextrose 55 ml @ 110 mls/hr Q24H IVPB 08/23/18 13:00 08/30/18 12:59 08/26/18 12:08 Dextrose (Dextrose 50%) 25 ml Q30M PRN IV Hypoglycemia 08/23/18 07:45 09/22/18 07:44 Dextrose (Dextrose 50%) 50 ml Q30M PRN IV Hypoglycemia 08/23/18 07:45 09/22/18 07:44 Docusate Sodium (Colace) 100 mg TID ORAL 08/24/18 18:00 09/21/18 20:59 08/26/18 12:07 Donepezil HCl (Aricept) 10 mg QHS ORAL 08/22/18 21:00 09/21/18 20:59 08/25/18 20:32 Duloxetine HCl (Cymbalta) 80 mg DAILY ORAL 08/23/18 09:00 09/22/18 08:59 08/25/18 09:06 Gadobutrol (Gadavist) 7.5 mmol NOW PRN IV Radiology Procedure 08/23/18 14:00 08/27/18 13:51 Heparin Sodium (Porcine) (Heparin 5000 units/ml) 5,000 units EVERY 12 HOURS SUBQ 08/23/18 09:00 09/22/18 08:59 08/25/18 20:37 Insulin Aspart (NovoLOG) BEFORE MEALS AND HS SUBQ 08/22/18 21:00 09/21/18 20:59 08/26/18 12:10 Insulin Aspart (NovoLOG) 6 units NOVOTIAC SUBQ 08/24/18 11:50 09/22/18 11:49 08/26/18 12:09 Insulin Detemir (Levemir) 18 units DAILY SUBQ 08/24/18 09:00 09/22/18 08:59 12/6/18 09:08 Lisinopril (Zestril) 5 mg DAILY ORAL 08/25/18 09:00 09/23/18 08:59 Magnesium Hydroxide (Mom) 30 ml Q4H PRN ORAL Constipation 08/22/18 20:30 09/21/18 18:59 Magnesium Oxide (Mag-Ox 400mg) 400 mg THREE TIMES A DAY ORAL 08/26/18 09:00 09/25/18 08:59 08/26/18 12:07 Metformin HCl (Glucophage) 500 mg TIAC ORAL 08/24/18 11:30 09/23/18 11:29 08/26/18 12:07 Metoprolol Tartrate (Lopressor) 25 mg Q12HR ORAL 08/24/18 21:00 09/22/18 20:59 08/25/18 20:35 Multivitamins Therapeutic (Therapeutic Multivitamin) 1 ea DAILY ORAL 08/23/18 09:00 09/22/18 08:59 08/25/18 09:06 Pantoprazole (Protonix) 40 mg DAILY ORAL 08/23/18 09:00 09/22/18 08:59 08/25/18 09:06 Sennosides (Senokot) 8.6 mg DAILY ORAL 08/23/18 09:00 09/21/18 18:59 08/25/18 09:06 Tamsulosin HCl (Flomax) 0.4 mg QHS ORAL 08/23/18 21:00 09/22/18 08:59 08/25/18 20:32 Canelo Gann MD Aug 26, 2018 14:42
--- NOTE | 2018-08-29 08:43 | Discharge Summary ---
Discharge Summary Discharge Summary _ DATE OF ADMISSION: 08/22/2018 DATE OF DISCHARGE: 08/26/2018 REASON FOR ADMISSION: 67 years old male with past medical history of diabetes mellitus, hypertension, CVA/TIA, resident of long term facility, presented to emergency room for evaluation due to elevated blood sugar. Patient nonverbal at baseline. Patient was pointed to the right lower quadrant , probably indicating pain. Per SNF report, no fevers, no chills, no chest pain or shortness of breath. Upon evaluation vital signs revealed no fever, patient was tachycardic. Laboratory workup revealed leukocytosis , hemoglobin 14.0, hematocrit 41.8. MCV 74. Chemistry revealed magnesium 1.3, stable other electrolytes and renal parameters. Stable LFT. Lipase 244. Glucose 360. Anion gap and CO2 within normal limits. Urinalysis no evidence of UTI. CT of the abdomen and pelvis revealed no gross acute abnormality. Cholelithiasis. Mild fatty fever. Mild prostatomegaly. Patient admitted with diagnoses of hyperglycemia with diabetes mellitus out of control, abdominal pain, probably sepsis. CONSULTANTS: ID specialist Dr. Fiona Gann GI specialist Dr. Valenzuela mathematical statistician Dr. Patricia junior media buyer/oncologist Dr. Ryan psychiatrist reconstructive dentist Dr. Gray [facility]SE: Patient admitted and started on IV hydration. Registered Appraiser seen and evaluated patient and optimized anti-glycemic medication regimen. Hemoglobin A1c- 9.7 , clearly not at goal. Patient started on long acting Levemir, pre-meal short-acting NovoLog, metformin was continued, sliding scale of insulin was implemented as needed. Blood sugar stabilized. GI specialist closely follow. Patient undergone recent EGD and colonoscopy in November 2017, which revealed 3-4 cm hiatal hernia. Lower esophageal reflux erosions consistent with gastroesophageal reflux. Normal colonoscopy including 10 cm of terminal ileum, although visualization was somewhat suboptimal. No plans for GI procedure on this admission. Patient subsequently undergone abdominal MRI. Previously reported in 2016 left lobe liver lesion was no longer evident , possibly cyst that involuted versus artifact. Cholelithiasis. No evidence of biliary ductal dilatation or choledocholithiasis. Liver enzymes were stable. Alpha-fetoprotein within normal range. Pain management was addressed as needed. Diet was advanced to ADA diet as tolerated. Antiemetics were on board as needed. Patient was continued on PPI.. Patient initially presented with tachycardia and leukocytosis . Patient had fever on August 24. Patient was on empiric antibiotic as per ID specialist recommendations. Fever resolved. Blood culture were negative. No evidence of infection. Keep off antibiotics as per ID recommendations. Cnc Service Engineer closely followed for hyponatremia. Patient undergone trial of 3% saline and Lasix. Hyponatremia resolved. Prior to discharge sodium 139. Blood pressure was managed with ANGELITO inhibitor and beta emeterio , remained stable. Electrolytes were closely monitored and replaced. Renal parameters were closely monitored and nephrotoxins were avoided. Patient was continued on antiplatelet therapy with aspirin and statin. Flomax was continued. Hemoglobin dropped to 10.6. Data Network Architect followed. According to junior media buyer , patient likely had anemia due to underlying chronic disease. No workup was required since hemoglobin was above 10. Data Network Architect recommended monitor hemoglobin, and if further drop below 10 , then consider further workup. Psychiatrist followed. According to psychiatrist patient had encephalopathy due to toxin. Patient started on low-dose of Zyprexa at nighttime . Ativan was on board as needed. Patient clinically stabilized. Blood sugar stable. No further complaints of abdominal pain . Patient was stable for discharged to long term facility for continuation of care. FINAL DIAGNOSES: Sepsis Hyperglycemia Diabetes mellitus out of control Encephalopathy due to toxin Hyponatremia Cholelithiasis Peptic ulcer disease l Liver lesion- no further evident Hypertension History of CVA Anemia of chronic disease DISCHARGE MEDICATIONS: See Medication Reconciliation list. DISCHARGE INSTRUCTIONS: Patient was discharged to the long term facility. Follow up with medical doctor at the facility. I have been assigned to dictate discharge summary for this account. I was not involved in the patient's management. Radha Barboza NP Aug 29, 2018 08:43
== END 2018-08-26 16:50 | DRG 871 ==
LOC: EDBD 13:10 → EMR 13:35 → EDBEDREQ 14:55 → 4E 15:09 → EDBEDREQ 15:44 → 4E 17:45
DX: A41.9 Sepsis, unspecified organism (principal); G92 Toxic encephalopathy; E87.1 Hypo-osmolality and hyponatremia; K27.9 Peptic ulcer, site unspecified, unspecified as acute or chronic, without hemorrhage or perforation; I10 Essential (primary) hypertension; Z86.73 Personal history of transient ischemic attack (TIA), and cerebral infarction without residual deficits; K80.20 Calculus of gallbladder without cholecystitis without obstruction; D63.8 Anemia in other chronic diseases classified elsewhere; Z79.4 Long term (current) use of insulin; G30.9 Alzheimer's disease, unspecified; F02.80 Dementia in other diseases classified elsewhere, unspecified severity, without behavioral disturbance, psychotic disturbance, mood disturbance, and anxiety; N40.0 Benign prostatic hyperplasia without lower urinary tract symptoms; H26.9 Unspecified cataract; K21.9 Gastro-esophageal reflux disease without esophagitis; K44.9 Diaphragmatic hernia without obstruction or gangrene
CPT/HCPCS: 36415; 71045; 74177; 74182; 80048; 80053; 80061; 80076; 81003; 82009; 82105; 82248; 82607; 82962; 83036; 83690; 83735; 84100; 84443; 84550; 85007; 85025; 85060; 86140; 87040; 87081; 96360; 99284; A9585; J1815; S5561

== ENCOUNTER 2019-07-26 19:00 | Inpatient (IN) | payer MEDICARE, MEDICAID ==
[~2019-07-26] VITALS: Ht 165.1 cm; Wt 81.6 kg
--- NOTE | 2019-07-26 19:15 | NUR ---
ED Nurse Note: Recieved pt BIBA from SNF with c/o increased AMS, pt in bed awake and alert, speaks only latvian, oriented to name and place, is currently calm and cooperative, pt gowned and palced on cardiac monitoring, IV libe started and labs drawn, will resume care as ordered and closely monitor.
[2019-07-26] MEDS ORDERED: LEVEMIR FL100 UNIT/2 SQ (19:35)
[2019-07-26] MEDS ORDERED: NOVOLOG100 UNIT/5 SQ (19:40)
[2019-07-26] MEDS ORDERED: OS-CAL 500+D31 EAC1 PO (19:40)
[2019-07-26] MEDS ORDERED: VITAMIN C500 M1 ORAL (19:40)
[2019-07-26 19:50] LABS: BASOPHILS % (AUTO) 0.9 % (0.0-2.0); EOSINOPHILS % (AUTO) 0.6 % (0.0-3.0); HEMATOCRIT 36.5 % (42.0-52.0); HEMOGLOBIN 11.7 G/DL (14.2-18.0); LYMPHOCYTES % (AUTO) 20.2 % (20.0-45.0); MEAN CORPUSCULAR VOLUME 73 FL (80-99); MONOCYTES % (AUTO) 5.4 % (1.0-10.0); PLATELET COUNT 288 K/UL (150-450); RED BLOOD COUNT 4.97 M/UL (4.70-6.10); RED CELL DISTRIBUTION WIDTH 12.5 % (11.6-14.8); WHITE BLOOD COUNT 10.4 K/UL (4.8-10.8)
[2019-07-26 20:00] VITALS: BP 103/72
[2019-07-26 20:06] LABS: ANION GAP 11 mmol/L (5-15); BLOOD UREA NITROGEN 13 mg/dL (7-18); CARBON DIOXIDE 26 MMOL/L (21-32); CHLORIDE 104 MMOL/L (98-107); CREATININE 0.9 MG/DL (0.55-1.30); POTASSIUM 4.6 MMOL/L (3.5-5.1); SODIUM 141 MMOL/L (136-145)
[2019-07-26 20:22] LABS: ALANINE AMINOTRANSFERASE 50 U/L (12-78); ALBUMIN 3.7 G/DL (3.4-5.0); ALKALINE PHOSPHATASE 130 U/L (46-116); ASPARTATE AMINO TRANSFERASE 25 U/L (15-37); BILIRUBIN,TOTAL 0.5 MG/DL (0.2-1.0); CKMB 0.8 NG/ML (0.0-3.6); CREATINE KINASE 82 U/L (26-308); PHOSPHORUS 2.8 MG/DL (2.5-4.9)
[2019-07-26] MEDS ORDERED: Piperacillin/Tazobactam 3.375 GM in NS 110 ML IVPB ONE (20:30)
[2019-07-26] MEDS ORDERED: Sodium Chloride 2,200 ML IVLG ONE (20:30)
--- NOTE | 2019-07-26 20:41 | Emergency Room Report ---
History of Present Illness General Chief Complaint: Altered Mental Status Source: Patient, Medical Record Present Illness HPI Patient is a 68-year-old male sent in from facility for increased altered mental status. Patient a prior history of schizophrenia as well as CVA with resulting left-sided weakness. Patient reportedly had become increasingly confused. He had been more agitated as well as some increased altered mental status. Allergies: Coded Allergies: No Known Allergies (Unverified , 05/25/16) Patient History Past Medical History: see triage record Reviewed Nursing Documentation: PMH: Agreed; PSxH: Agreed Nursing Documentation-PMH Past Medical History: No History, Except For Hx Hypertension: Yes Hx Diabetes: Yes Hx Cancer: No Hx Neurological Problems: Yes Hx Cerebrovascular Accident: Yes Hx Transient Ischemic Attacks: Yes Hx Dementia: No Hx Alzheimer's Disease: No Hx Parkinson's Disease: No Hx Meningitis: No Hx Encephalitis: No Hx Seizures: No Hx Epilepsy: No Hx Multiple Sclerosis: No Hx Cerebral Palsy: No Hx Amyotrophic Lat Sclerosis: No Hx Paralysis: Yes Hx Traumatic Brain Injury: Yes Hx Weakness: Yes Hx Neurologic Surgery: No Hx Brain Shunt: No Review of Systems All Other Systems: limited - Limited by poor historian Physical Exam Vital Signs Date Time Temp Pulse Resp B/P (MAP) Pulse Ox O2 Delivery O2 Flow Rate FiO2 07/26/19 18:56 98.8 98 18 104/69 (81) 93 Room Air General Appearance: alert, Chronically Ill Eyes: bilateral eye PERRL ENT: hearing grossly normal Neck: full range of motion Respiratory: chest non-tender, lungs clear, normal breath sounds Cardiovascular #1: normal peripheral pulses Gastrointestinal: normal inspection Musculoskeletal: decreased range of motion Neurologic: motor weakness - left upper extremity, left facial droo Psychiatric: anxious Skin: no rash Medical Decision Making Diagnostic Impression: Primary Impression: Metabolic acidosis Additional Impression: Encephalopathy acute ER Course Patient presented for increased altered mental status. Differential diagnosis include was not limited to urinary tract infection, sepsis, pneumonia, hepatic encephalopathy among others. Because of complexity of patient's case laboratory tests and imaging studies were ordered. Patient had what appears to be a metabolic acidosis. Laboratory testing showed elevated alkaline phosphatase as well as normal initial white blood count. This does not appear to be consistent with sepsis. Patient's initial lactate was noted to be elevated and repeat was noted to be increased. Patient was given IV fluids while in the emergency department. Patient had prior history of CVA with residual left-sided weakness. Patient was placed in restraints due to pulling out IVs. He appears to be somewhat confused. He was given some medications due to agitation. Dr. Ramon Rashid was contacted for inpatient management due to encephalopathy as well as lactic acidosis. Patient be admitted for further evaluation and treatment. He was noted to be full code. Last Vital Signs Date Time Temp Pulse Resp B/P (MAP) Pulse Ox O2 Delivery O2 Flow Rate FiO2 07/26/19 20:00 98.8 104 18 103/72 97 Room Air Status: unchanged Disposition: ADMITTED INPATIENT Condition: Stable Referrals: Ramon Rashid MD (PCP) Simon Barrios MD Jul 26, 2019 20:41
[2019-07-26 20:59] VITALS: BP 128/86
--- NOTE | 2019-07-26 20:59 | NUR ---
ED Nurse Note: noted pt with iv pulled out and iv fluids draining on the ground, noted pt increase in agitation such as verbally inappropriate and clenching fist towards nursing staff with kicking motion. ERMD notified. nonbehavioral restraints applied for pt's safety and continuity of care per ERMD order. skin intact, + 2 radial pulses noted. will cont monitor. pt vss at this time.
--- NOTE | 2019-07-26 21:00 | NUR ---
ED Nurse Note: Pt becoming agitated and restless, pt pulled out IV line x 2, restarted, MD informed, pt placed on soft restraints and will be medicated for agitation, pt completed ordered IV fluids and antibiotic, toelratted well, no s/s of adverse reaction, pt straight cath for urine sample, sent to lab, will resume care as ordered and prepare for admission.
[2019-07-26] MEDS ORDERED: LORazepam Inj 2mg/ml 1ml IV ONE (21:15)
[2019-07-26 21:30] LABS: APPEARANCE,URINE CLEAR; BILIRUBIN, URINE NEGATIVE (NEGATIVE); GLUCOSE, URINE (UA) NEGATIVE (NEGATIVE); KETONES,URINE 1+ (NEGATIVE); LEUKOCYTE ESTERASE ,URINE 1+ (NEGATIVE); NITRITE,URINE NEGATIVE (NEGATIVE); PH,URINE 5 (4.5-8.0); PROTEIN,URINE 1+ (NEGATIVE); UROBILINOGEN,URINE 1 MG/DL (0.0-1.0)
[2019-07-26 21:33] LABS: COLOR,URINE YELLOW
[2019-07-26] MEDS ORDERED: Haloperidol 5mg/ml Inj IM ONE (22:00)
[2019-07-26 23:00] VITALS: BP 116/61
--- NOTE | 2019-07-26 23:30 | NUR ---
ED Nurse Note: pt currently calm and cooperative, verbalized that he will not pull out IV and will be compliant, restraints d/c and ermd notified, pt skin intact, +ROM, pt has hx left side weakness, cap refill <3sec, no injuries occured while on restraints.
--- NOTE | 2019-07-26 23:32 | NUR ---
ED Nurse Note: REPORT GIVEN TO RN KENDY FROM TELE.
--- NOTE | 2019-07-26 23:40 | NUR ---
ED Nurse Note: iv started on left wrist 20 g.
--- NOTE | 2019-07-26 23:50 | NUR ---
TRANSFER TO FLOOR: Patient transferred to tele floor and report was given to RN Adama and endorsed care, vss, resp even and unlabored on RA, iv intact and patent, pt transferred on gurney on acls protocol, sinus rhythm on accounting assistant. all belongings sent w/pt w/ completed list.
--- NOTE | 2019-07-26 23:55 | NUR ---
NURSE NOTES: Received report from Purvi Mancilla RN. regarding patient's transfer to TELE floor from ED for AMS. Arrived via gurney and transferred to bed with assist. Continuous cardiac monitoring in place per protocol, belongings checked and noted, head to toe assessment initiated with no noted skin issues observed. IV line intact and patent SL. Kept clean, dry, and comfortable in bed with no complaints of acute pain or discomfort at this time. Safety precaution initiated; side rails X3 up, call ligth within reach, bed in lowest position, brakes and alarm on at all times. Needs and wants anticipated and attended. New orders received and carried out per MD Rachid.
[2019-07-27] VITALS: BP 105/63
[2019-07-27] MEDS ORDERED: FLOMAX0.4 MG ORAL (00:36)
--- NOTE | 2019-07-27 02:58 | NUR ---
NURSE NOTES: Patient in bed asleep with no S/S of distress noted. Will continue to monitor.
[2019-07-27 04:00] VITALS: BP 111/69
[2019-07-27] MEDS: NovoLOG Insulin Flexpen SUBQ SCH ×4 (06:13→21:27)
[2019-07-27 07:23] LABS: BASOPHILS % (AUTO) 0.5 % (0.0-2.0); HEMATOCRIT 37.6 % (42.0-52.0); HEMOGLOBIN 11.9 G/DL (14.2-18.0); LYMPHOCYTES % (AUTO) 27.6 % (20.0-45.0); MEAN CORPUSCULAR VOLUME 74 FL (80-99); MONOCYTES % (AUTO) 6.3 % (1.0-10.0); NEUTROPHILS % (AUTO) 64.5 % (45.0-75.0); PLATELET COUNT 262 K/UL (150-450); RED BLOOD COUNT 5.06 M/UL (4.70-6.10); RED CELL DISTRIBUTION WIDTH 14.1 % (11.6-14.8); WHITE BLOOD COUNT 9.6 K/UL (4.8-10.8)
[2019-07-27 07:34] LABS: ALANINE AMINOTRANSFERASE 43 U/L (12-78); ALBUMIN 3.6 G/DL (3.4-5.0); ALBUMIN/GLOBULIN RATIO 0.9 (1.0-2.7); ALKALINE PHOSPHATASE 140 U/L (46-116); ANION GAP 9 mmol/L (5-15); ASPARTATE AMINO TRANSFERASE 24 U/L (15-37); BILIRUBIN,TOTAL 0.5 MG/DL (0.2-1.0); BLOOD UREA NITROGEN 9 mg/dL (7-18); CALCIUM 8.3 MG/DL (8.5-10.1); CARBON DIOXIDE 23 MMOL/L (21-32); CHLORIDE 109 MMOL/L (98-107); CREATININE 0.7 MG/DL (0.55-1.30); POTASSIUM 4.1 MMOL/L (3.5-5.1); SODIUM 141 MMOL/L (136-145)
--- NOTE | 2019-07-27 07:50 | NUR ---
HAND-OFF: Report given to Satish Briggs RN. Patient in bed asleep with no S/S of distress noted. Endorsed plan of care.
[2019-07-27 08:00] VITALS: BP 121/86
--- NOTE | 2019-07-27 08:12 | NUR ---
NURSE NOTES: Patient received from Adama RUSSELL. Patient sleeping at this time. No s/sx of distress. RR even and unlabored on RA. Bed low and locked. Side rails up x2. Bed alarm on. Will continue to monitor.
[2019-07-27] MEDS ORDERED: Bisacodyl EC 5mg tab ORAL SCH (09:00)
[2019-07-27] MEDS ORDERED: Docusate 100mg cap ORAL SCH (09:00)
[2019-07-27] MEDS: Vitamin D 400 INTLU TAB ORAL SCH (09:24)
[2019-07-27] MEDS: Aspirin EC 81mg tab ORAL SCH (09:24)
[2019-07-27] MEDS: Ascorbic Acid 500mg tab ORAL SCH (09:24)
[2019-07-27] MEDS: Tamsulosin 0.4mg cap ORAL SCH (09:24)
[2019-07-27] MEDS: Multivitamin w/Minerals tab ORAL SCH (09:24)
[2019-07-27] MEDS: DULoxetine 30mg cap ORAL SCH (09:24)
[2019-07-27] MEDS: Lisinopril 20mg tab ORAL SCH ×2 (09:27→17:15)
[2019-07-27] MEDS: Calcium Carbonate 500mg w/Vit D 200iu tab ORAL SCH ×2 (09:36→17:14)
[2019-07-27 11:44] VITALS: BP 123/79
--- NOTE | 2019-07-27 12:21 | Diagnostic Imaging Report ---
Indication: Shortness of breath Technique: One view of the chest Comparison: none Findings: No acute infiltrates, effusions, or congestion. Tortuous calcified aorta. Normal heart size. Upper mediastinum unremarkable. Impression: No acute process.
--- NOTE | 2019-07-27 15:51 | NUR ---
CASE MANAGEMENT: INITIAL REVIEW 68 YR OLD MALE BIBA FROM [facility] CC: AMS SI: METABOLIC ACIDOSIS; AMS 98.8 98 18 104/69 93% ON RA LACTIC ACID 3.20; CA+ 8.3; H/H 11.9/37.6 IS: IVF NS BOLUS X2 IV ZOSYN X1 SEROQUEL PO Q6/PRN IM HALDOL X1 IV ATIVAN X1 :2E TELE UNIT DCP: RETURN TO [facility] PLAN: US ABD
[2019-07-27 16:00] VITALS: BP 137/73
--- NOTE | 2019-07-27 16:16 | Diagnostic Imaging Report ---
Indication: Abnormal liver function tests, history of gallstones Technique: Humphrey-scale and duplex images of the upper abdomen were obtained Comparison: 05/29/2016. Reference also made to abdomen MRI 08/23/2018, abdomen CT from 08/22/2018 Findings: Exam is limited due to body habitus, overlying bowel gas, and patient being contracted Gallbladder demonstrates gallstones. No gallbladder wall thickening. Sonographic Bejarano's sign is negative. Common bile duct measures 5 mm in diameter. No intrahepatic biliary ductal dilatation. Liver demonstrates diffusely increased echogenicity, consistent with diffuse hepatocellular disease, most likely fatty change. Portal vein and hepatic veins are patent. Pancreas is unremarkable. Spleen is unremarkable. Left kidney measures 11.8 cm in length. Right kidney measures 11.8 cm length. Both kidneys demonstrate normal echogenicity. There is no hydronephrosis. No focal abnormality . Abdominal aorta is partially obscured by bowel gas, visualized portions are non-aneurysmal . Impression: Limited exam, as described Cholelithiasis, also previously reported. Negative for dilated bile ducts Liver demonstrates diffusely increased echogenicity, consistent with diffuse hepatocellular disease, most likely fatty change. Not demonstrated on prior ultrasound, equivocally evident on prior CT scan Noted incomplete visualization of the abdominal aorta
--- NOTE | 2019-07-27 19:44 | NUR ---
HAND-OFF: Report given to Adama Jaquez RN. Patient stable. Attempted to get out of bed x2 for BM. Endorsed that pt is on bedpan and has diarrhea.
--- NOTE | 2019-07-27 19:50 | NUR ---
NURSE NOTES: Received report from Satish Briggs RN. Patient in bed AAO X1-2 Syriac speaking with minimal Japanese noted. Continuous cardiac monitoring in place per protocol, belongings checked and noted, head to toe assessment initiated with no noted skin issues observed. IV line intact and patent SL. Kept clean, dry, and comfortable in bed with no complaints of acute pain or discomfort at this time. Safety precaution initiated; side rails X3 up, call light within reach, bed in lowest position, brakes and alarm on at all times. Needs and wants anticipated and attended. ABD US resulted. Continue to monitor.
[2019-07-27 20:00] VITALS: BP 101/70
--- NOTE | 2019-07-27 20:00 | Consultation ---
DATE OF CONSULTATION: 07/27/2019 INFECTIOUS DISEASE CONSULTATION CONSULTING PHYSICIAN: Canelo Gann M.D. PRIMARY ATTENDING PHYSICIAN: Ramon Rashid M.D. REASON FOR CONSULT: Acidosis, cholelithiasis, and diarrhea. HISTORY OF PRESENT ILLNESS: The patient is a 68-year-old male admitted yesterday from nursing facility with altered mental status and confusion, was found to have metabolic acidosis, but no fever and leukocytosis. PAST MEDICAL HISTORY: Significant for Alzheimer's dementia, schizophrenia, diabetes mellitus, hypertension, CVA, left-sided weakness, gastrointestinal bleeding in 2016 secondary to the peptic ulcer disease, has history of cholelithiasis on previous admission in August 2018. At that time, MRI did not show cholecystitis or choledocholithiasis. Has BPH. MEDICATIONS: Atorvastatin, Aricept, vitamin C, aspirin, Cymbalta, ferrous sulfate, vitamin D, calcium plus vitamin D, lisinopril, Tylenol, Protonix, insulin, and Seroquel. ALLERGIES: No known drug allergies. SOCIAL HISTORY: . retirement resident. No history obtainable from the patient. REVIEW OF SYSTEMS: According to nurse, he has diarrhea. PHYSICAL EXAMINATION: VITAL SIGNS: Temperature 97.7, pulse 83, and blood pressure 123/79. GENERAL APPEARANCE: No acute distress. HEAD AND NECK: [place] conjunctivae. HEART: Normal rate. LUNGS: Clear. ABDOMEN: Soft and nontender. EXTREMITY: He has no edema. LABORATORY AND DIAGNOSTIC DATA: WBC 9.6, hemoglobin 11.9, hematocrit 37.6, and platelets is 262,000. Sodium 141, potassium 4.1, chloride 109, bicarb 23, BUN 9, creatinine 0.7, and glucose is 170. Lactic acid is 3.2. Alkaline phosphatase is slightly elevated at 114. Bilirubin 0.1. AST and ALT are within normal limits. Chest x-ray was negative. UA also negative. IMPRESSION: Lactic acidosis. The cause is unknown. We will try to rule out infection. The patient has a history of cholelithiasis. Has diarrhea. We will try to rule out C. Diff. He has diabetes mellitus, hypertension, BPH, dementia, and elevation in alkaline phosphatase. RECOMMENDATIONS: We will repeat abdominal ultrasound. We will order a C. difficile test. For now, we will observe the patient off antibiotic. At the end of my exam, I thank Dr. Rashid for involving me in the care of this patient. Canelo Gann M.D. DR: KENYA JOB#: [id number] CC: MIAN
[2019-07-27] MEDS ORDERED: Donepezil 10mg tab ORAL SCH (21:00)
[2019-07-27] MEDS: Atorvastatin 80mg tab ORAL SCH (21:21)
--- NOTE | 2019-07-27 23:15 | History and Physical Report ---
DATE OF ADMISSION: 07/26/2019 HISTORY OF PRESENT ILLNESS: The patient comes with altered mental status, more confused than his baseline, agitated with staff, rule out encephalopathy, rule out urinary tract infection, lactic acid elevation, rule out urinary tract infection as well. The patient is a poor historian, cannot get reliable history from the patient. PAST MEDICAL HISTORY: Hyperlipidemia, organic brain syndrome, constipation, iron-deficiency anemia, NIDDM, hypertension, GERD, BPH, history of electrolyte imbalance, history of GI bleed, history of gallstones, peptic ulcer disease, history of CVA in the past, history of weakness as well. PAST SURGICAL HISTORY: Denies. ALLERGIES: No known allergies. SOCIAL HISTORY: Denies history of smoking, alcohol, or illicit drugs. Comes from a senior care. REVIEW OF SYSTEMS: HEENT: Denies headaches. RESPIRATORY: Denies shortness of breath. Denies cough. CARDIOVASCULAR: Denies chest pain. GASTROINTESTINAL: Denies nausea, vomiting, or diarrhea. EXTREMITIES: Denies pain. CENTRAL NERVOUS SYSTEMS: Denies any change in vision or speech pattern; however, he is a poor historian. PHYSICAL EXAMINATION: VITAL SIGNS: Temperature 97.7, pulse 83, blood pressure 132/79. HEENT: PERRLA. NECK: Supple. No lymphadenopathy. CHEST: Clear to auscultation. CARDIOVASCULAR: Regular rate and rhythm. GASTROINTESTINAL: Soft. Positive bowel sounds. No organomegaly. EXTREMITIES: A 1+ edema. Reflexes equal on both sides. NEUROLOGIC: Poor historian, not oriented. LABORATORY AND DIAGNOSTIC DATA: WBC of 10.4, hemoglobin 11.7, platelets 388. Sodium 141, potassium 4.6, BUN of 13, creatinine 0.9, and glucose of 136. ASSESSMENT/PLAN: Altered mental status, most likely due to urinary tract infection and also patient is agitated. I have asked Dr. Ortega, Dr. Patricia, Dr. Canelo Gann, and see the patient for the altered mental status as well as for agitation as well as for urinary tract infection workup. Antibiotics per Dr. Canelo Gann. The patient also looks dry clinically, we will get on Dr. Patricia for dehydration treatment. Ramon Rashid M.D. DR: Augie JOB#: [id number] CC:
[2019-07-28] VITALS: BP 115/71
--- NOTE | 2019-07-28 03:00 | NUR ---
NURSE NOTES: Patient in bed asleep with no S/S of distress. Will continue to monitor.
[2019-07-28 04:00] VITALS: BP 127/76
[2019-07-28] MEDS: NovoLOG Insulin Flexpen SUBQ SCH ×4 (05:19→21:11)
--- NOTE | 2019-07-28 07:05 | NUR ---
HAND-OFF: Report given to Alessandro Peraza Patient in bed with no S/S of distress. Endorsed plan of care.
--- NOTE | 2019-07-28 07:37 | NUR ---
NURSE NOTES: Received report from YVONNE elliott. Patient currently asleep and breathing easily on RA with no signs of cardiac or respiratory distress. Continued with plan of care. Bed in lowest , locked postion , fall precautions in place and bed alarm on.
[2019-07-28 08:36] VITALS: BP 125/77
[2019-07-28] MEDS: Lisinopril 20mg tab ORAL SCH ×2 (08:46→17:18)
[2019-07-28] MEDS: Vitamin D 400 INTLU TAB ORAL SCH (08:47)
[2019-07-28] MEDS: Ascorbic Acid 500mg tab ORAL SCH (08:48)
[2019-07-28] MEDS: Calcium Carbonate 500mg w/Vit D 200iu tab ORAL SCH ×2 (08:48→17:18)
[2019-07-28] MEDS: Multivitamin w/Minerals tab ORAL SCH (08:48)
[2019-07-28] MEDS: Aspirin EC 81mg tab ORAL SCH (08:53)
[2019-07-28] MEDS: Tamsulosin 0.4mg cap ORAL SCH (08:54)
[2019-07-28] MEDS: DULoxetine 30mg cap ORAL SCH (08:54)
--- NOTE | 2019-07-28 10:38 | NUR ---
NURSE NOTES: BIA (adrienne) called to inform she will be calling Dr Rashid regarding readiness for DC. Addendum: 07/28/19 at 1039 by Michael Peraza RN No diarrhea curently and cdiff result was negative.
[2019-07-28 12:00] VITALS: BP 121/73
--- NOTE | 2019-07-28 12:04 | Infectious Diseases Prog Note ---
Assessment/Plan Assessment/Plan IMPRESSION: Lactic acidosis. cholelithiasis. Diarrhea resolved negative C. Diff. Diabetes mellitus, hypertension, BPH, dementia, elevation in alkaline phosphatase. Altered mental status RECOMMENDATIONS: we will observe the patient off antibiotic. Subjective ROS Limited/Unobtainable: Yes Constitutional: Reports: no symptoms Respiratory: Reports: no symptoms Gastrointestinal/Abdominal: Reports: no symptoms Genitourinary: Reports: no symptoms Allergies: Coded Allergies: No Known Allergies (Unverified , 05/25/16) Objective Vital Signs Last 24 Hour Vital Signs Date Time Temp Pulse Resp B/P (MAP) Pulse Ox O2 Delivery O2 Flow Rate FiO2 07/28/19 09:00 Room Air 07/28/19 08:54 71 125/77 07/28/19 08:46 125/77 07/28/19 08:36 97.9 71 20 125/77 (93) 97 07/28/19 08:00 79 07/28/19 04:00 69 07/28/19 04:00 97.6 80 20 127/76 (93) 95 07/28/19 00:00 74 07/28/19 00:00 97.3 70 18 115/71 (86) 100 07/27/19 21:00 Room Air 07/27/19 20:00 97.9 76 18 101/70 (80) 100 07/27/19 20:00 81 07/27/19 17:15 137/73 07/27/19 16:00 82 07/27/19 16:00 97.6 80 18 137/73 (94) 95 07/27/19 12:00 86 Height (Feet): 5 Height (Inches): 5.00 Weight (Pounds): 180 General Appearance: no acute distress HEENT: mucous membranes moist Respiratory/Chest: lungs clear Cardiovascular: normal rate Abdomen: soft, non tender Extremities: no edema Neurologic/Psychiatric: alert, responsive Microbiology Date/Time Source Procedure Growth Status 07/26/19 19:45 Blood Blood Culture - Preliminary NO GROWTH AFTER 24 HOURS Resulted 07/26/19 19:30 Blood Blood Culture - Preliminary NO GROWTH AFTER 24 HOURS Resulted 07/27/19 11:00 Stool Clostridium difficile Toxin Assay - Final Complete 07/26/19 21:00 Rectum Received Current Medications Medications (Trade) Dose Ordered Sig/Mariza Route PRN Reason Start Time Stop Time Status Last Admin Dose Admin Acetaminophen (Tylenol) 650 mg Q6H PRN ORAL Mild Pain/Temp > 100.5 07/27/19 06:45 08/26/19 06:44 Ascorbic Acid (Vitamin C) 500 mg DAILY ORAL 07/27/19 09:00 08/26/19 08:59 07/28/19 08:48 Aspirin (Ecotrin) 81 mg DAILY ORAL 07/27/19 09:00 08/26/19 08:59 07/28/19 08:53 Atorvastatin Calcium (Lipitor) 80 mg BEDTIME ORAL 07/27/19 21:00 08/26/19 20:59 07/27/19 21:21 Calcium/Vitamin D (OsCal D) 1 tab BID ORAL 07/27/19 09:00 08/26/19 08:59 07/28/19 08:48 Dextrose (Dextrose 50%) 25 ml Q30M PRN IV Hypoglycemia 07/27/19 00:45 08/26/19 00:44 Dextrose (Dextrose 50%) 50 ml Q30M PRN IV Hypoglycemia 07/27/19 00:45 08/26/19 00:44 Donepezil HCl (Aricept) 10 mg QHS ORAL 07/27/19 21:00 08/26/19 20:59 07/27/19 21:21 Duloxetine HCl (Cymbalta) 30 mg DAILY ORAL 07/27/19 09:00 08/26/19 08:59 07/28/19 08:54 Ferrous Sulfate (Feosol) 325 mg BID ORAL 07/27/19 09:00 08/26/19 08:59 07/28/19 08:46 Insulin Aspart (NovoLOG) BS control BEFORE MEALS AND HS SUBQ 07/27/19 06:30 08/26/19 06:29 07/28/19 11:17 Lisinopril (Prinivil) 40 mg BID ORAL 07/27/19 09:00 08/26/19 08:59 07/28/19 08:46 Multivitamins Therapeutic (Therapeutic Multivitamin) 1 ea DAILY ORAL 07/27/19 09:00 08/26/19 08:59 07/28/19 08:48 Nifedipine (Procardia XL) 60 mg DAILY ORAL 07/27/19 09:00 08/26/19 08:59 07/28/19 08:54 Pantoprazole (Protonix) 40 mg DAILY@0630 ORAL 07/27/19 06:30 08/26/19 06:29 07/28/19 05:19 Quetiapine Fumarate (SEROquel) 25 mg Q6HR PRN ORAL For Anxiety 07/27/19 03:30 08/26/19 03:29 Tamsulosin HCl (Flomax) 0.4 mg DAILY ORAL 07/27/19 09:00 08/26/19 08:59 07/28/19 08:54 Vitamin D (Vitamin D) 1,000 intlu DAILY ORAL 07/27/19 09:00 08/26/19 08:59 07/28/19 08:47 Canelo Gann MD Jul 28, 2019 12:04
--- NOTE | 2019-07-28 12:04 | NUR ---
NURSE NOTES: Patient calmly laying in bed, napping. Attempted to get patient oob as tolerated, but patient unable to stand with assist at bedside. Sitting at edge of bed patient appeared unbalanced at times --unable to sit at edge independently. Skin in entirety clean , dry and intact with no redness or irritation. Voided large amt of clear yellow--incontinent. No BM. Provided hygiene and cahnged sheets. Cont'd to follow plan of care.
--- NOTE | 2019-07-28 12:09 | NUR ---
CASE MANAGEMENT: REVIEW 07/28/19 SI: METABOLIC ACIDOSIS; AMS 97.9 71 20 125/77 97% ON RA IS: FLOMAX PO QD LISINOPRIL PO BID PROCARDIA PO QD PROTONIX PO QD LIPITOR PO HS NOVOLOG SQ AC&HS DONEPEZIL PO QHS VIT C PO QD ASPIRIN PO QD FEOSOL PO BID MVT PO QD VIT D PO QD OSCAL PO BID DCP: RETURN TO [facility] Addendum: 07/28/19 at 1227 by DEVANTE PARMAR LVN CASE MANAGEMENT: REVIEW 07/28/19 SI: METABOLIC ACIDOSIS; AMS 97.9 71 20 125/77 97% ON RA IS: FLOMAX PO QD LISINOPRIL PO BID PROCARDIA PO QD PROTONIX PO QD LIPITOR PO HS NOVOLOG SQ AC&HS DONEPEZIL PO QHS VIT C PO QD ASPIRIN PO QD FEOSOL PO BID MVT PO QD VIT D PO QD OSCAL PO BID DCP: RETURN TO [facility] PLAN: NEPHRO CONSULT
--- NOTE | 2019-07-28 13:19 | CDS Physician Query ---
Clarification is required for compliance, coding accuracy, and to reflect severity of illness for this patient Dear Dr. Canelo Gann M.D. Date: 07/28/2019 Capacity Manager/CDS Name: Alexandre Espinosa The patient is a 68-year-old male admitted yesterday from nursing facility with altered mental status and confusion, was found to have metabolic acidosis, but no fever and leukocytosis. "Altered Mental Status" documented in consultation notes Please indicate the nature and chronicity of the condition below: [] Metabolic Encephalopathy [] Toxic Encephalopathy [] Toxic - Metabolic Encephalopathy [] Encephalopathy, Other [] Dementia with Delirium [] Hypoxic encephalopathy [] Posterior reversible encephalopathy syndrome [] Other: [] Not Applicable Present on Admission: [] Yes [] No [] Clinically Undetermined Physician signature Date Please also document in your Progress Notes and/or Discharge Summary and indicate if the condition was present on admission. MTDD
[2019-07-28 16:00] VITALS: BP 119/70
--- NOTE | 2019-07-28 17:33 | NUR ---
NURSE NOTES: 530pm: Patient was napping but woke for dinner. Encouraged patient to slow down while eating. AOX3 with calm, cooperative affect. call berry in reach. Patient currently clean and dry. at bedside aiding with feeding. Patient ate 100% of dinner with gusto and no sign of difficultuy swallowing--no coughing and no sign of difficulty breathing. Patient's stated "he seems much better, more or less back to normal"
--- NOTE | 2019-07-28 18:00 | Progress Note ---
DATE: 07/28/2019 SUBJECTIVE: The patient is feeling better, cooperative, less agitated, more redirectable. MENTAL STATUS EXAMINATION: The patient is alert, oriented times self, waxing and waning consciousness. Mood is neutral to anxious. Affect is flat. Thought process is concrete. Thought content, no suicidal or homicidal ideation. Cognition is impaired. Insight and judgment impaired. ASSESSMENT: Acute encephalopathy. PLAN: 1. We will continue the Seroquel. 2. Continue the Cymbalta. 3. Provide the patient with reality orientation and supportive therapy. Olivia Ortega M.D. DR: Darwin JOB#: [id number] CC:
--- NOTE | 2019-07-28 18:30 | Consultation ---
DATE OF CONSULTATION: HISTORY OF PRESENT ILLNESS: This is a 68-year-old male with a history of multiple medical issues including diabetic mellitus, hypertension, gastroesophageal reflux disease, BPH, iron-deficiency anemia, constipation hyperlipidemia, CVA who has been admitted to the hospital for medical stabilization. The patient is confused and agitated, unable to be engaged during the evaluation, has waxing and waning consciousness, memory impairment. Poor insight and memory. PAST PSYCHIATRY HISTORY: Dementia. PAST MEDICAL HISTORY: Significant for diabetes, hyponatremia, MRSA, anemia, cholelithiasis, . ALLERGIES: No known drug allergies. SUBSTANCE ABUSE HISTORY: No known history of illicit drug use or alcohol. MENTAL STATUS EXAMINATION: The patient is alert, disoriented. Mood is anxious. Affect is constricted. Congruent mood. Thought process is concrete. Thought content, no suicidal or homicidal ideation. Cognition is impaired. Insight and judgement is impaired. ASSESSMENT: Earling I Dementia. Acute metabolic encephalopathy. Earling II Deferred. Earling III As above. Earling IV Low. Earling V 20 PLAN: 1. The patient will be started on Seroquel 25 mg every 6 hours as needed for agitation. 2. Cymbalta 30 mg in the morning. 3. will be discontinued. 4. We will continue to follow and readjust the medications. Olivia Ortega M.D. DR: Darwin JOB#: [id number] CC:
--- NOTE | 2019-07-28 19:30 | NUR ---
NURSE NOTES: Received report from YVONNE Galindo. Patient is awake, lying in semi byrd's; resting comfortably. A/Ox4. Primarily Kazakh speaking. Denies pain at this time. No signs of acute distress noted. Checked IV site and flushed. No erythema, bleeding or infiltration noted. Bed at lowest position, brakes on, siderailsx3. Call light within reach. Will continue to monitor.
--- NOTE | 2019-07-28 19:50 | NUR ---
NURSE NOTES: Report given to YVONNE Multani. Patient stable adn no co pain with no sign of cardiac or respiratory distress. Bed in lowest, locked position with call berry in reach.
[2019-07-28 20:00] VITALS: BP 100/65
[2019-07-28] MEDS: Atorvastatin 80mg tab ORAL SCH (21:10)
--- NOTE | 2019-07-28 22:23 | General Progress Note ---
Assessment/Plan Problem List: (1) Altered mental status ICD Codes: R41.82 - Altered mental status, unspecified SNOMED: 893937749 (2) hyper glycemia (3) Sepsis ICD Codes: A41.9 - Sepsis, unspecified organism SNOMED: 62345703 Status: progressing Assessment/Plan: ams still confused niddm sepsis abx per id afebrile Subjective ROS Limited/Unobtainable: Yes Allergies: Coded Allergies: No Known Allergies (Unverified , 05/25/16) Objective Last 24 Hour Vital Signs Date Time Temp Pulse Resp B/P (MAP) Pulse Ox O2 Delivery O2 Flow Rate FiO2 07/28/19 17:18 119/70 07/28/19 16:00 98.3 80 20 119/70 (86) 97 07/28/19 16:00 78 07/28/19 12:00 98.3 73 19 121/73 (89) 100 07/28/19 12:00 81 07/28/19 09:00 Room Air 07/28/19 08:54 71 125/77 07/28/19 08:46 125/77 07/28/19 08:36 97.9 71 20 125/77 (93) 97 07/28/19 08:00 79 07/28/19 04:00 69 07/28/19 04:00 97.6 80 20 127/76 (93) 95 07/28/19 00:00 74 07/28/19 00:00 97.3 70 18 115/71 (86) 100 Intake and Output 07/27/19 07/28/19 19:00 07:00 Intake Total 120 ml Balance 120 ml Intake Oral 120 ml # Voids 3 # Bowel Movements 1 2 Height (Feet): 5 Height (Inches): 5.00 Weight (Pounds): 180 Cardiovascular: normal peripheral pulses Respiratory/Chest: lungs clear Ramon Rashid MD Jul 28, 2019 22:23
[2019-07-29] VITALS: BP 136/78
--- NOTE | 2019-07-29 01:48 | NUR ---
NURSE NOTES: Resting throughout the night. No significant change of condition noted. Will continue to monitor.
[2019-07-29 04:00] VITALS: BP 126/74
[2019-07-29] MEDS: NovoLOG Insulin Flexpen SUBQ SCH ×4 (06:44→20:26)
--- NOTE | 2019-07-29 07:15 | NUR ---
HAND-OFF: Report given to YVONNE Galindo. Plan of care endorsed.
--- NOTE | 2019-07-29 07:40 | NUR ---
NURSE NOTES:Received report from YVONNE Multani. Patient asleep stable on tele monitoring with NSR and 64 bpm. VSS. Bed in lowest, locked position with bed alarm set and call berry in reach.
[2019-07-29 07:54] VITALS: BP 108/64
[2019-07-29] MEDS: Tamsulosin 0.4mg cap ORAL SCH (08:40)
[2019-07-29] MEDS: DULoxetine 30mg cap ORAL SCH (08:40)
[2019-07-29] MEDS: Aspirin EC 81mg tab ORAL SCH (08:41)
[2019-07-29] MEDS: Vitamin D 400 INTLU TAB ORAL SCH (08:45)
[2019-07-29] MEDS: Multivitamin w/Minerals tab ORAL SCH (08:45)
[2019-07-29] MEDS: Calcium Carbonate 500mg w/Vit D 200iu tab ORAL SCH ×2 (08:45→17:14)
[2019-07-29] MEDS: Ascorbic Acid 500mg tab ORAL SCH (08:45)
[2019-07-29] MEDS: Lisinopril 20mg tab ORAL SCH ×3 (08:46→17:14)
[2019-07-29 11:28] VITALS: BP 104/51
--- NOTE | 2019-07-29 13:23 | NUR ---
NURSE NOTES:Patient co dizziness this morn--held 9am lisinopril for decreased (but within norm limits) BP. Patient not interested in breakfast, but 100% of lunch tlerated with no nvd and stated "I'm hungry. I feel good now." OOB to chair with assist x2 (turn and pivot) to sit up for 45 minutes with RN or LIFESTYLE CONSULTANT in room to ensure safety. Denies pain. Occasionally patient removed telemetry electrodes--reorientation needed . Patient forgetful but calm and cooperative. Cont'd with plan of care. patient voided 2x this morning--hygiene provided. No BM this morning.; Addendum: 07/29/19 at 1336 by Michael Peraza RN Patient denies dizziness currently.
--- NOTE | 2019-07-29 13:36 | NUR ---
NURSE NOTES:AOX3 but forgetful and occasionally appears confused--patient stated that he doesn't understand why he can't go home.
--- NOTE | 2019-07-29 15:37 | Cardiology Report ---
APPROVED REPORT EKG Measurement Heart [id number] Normal sinus rhythm Left axis deviation Inferior infarct, age undetermined Abnormal ECG
[2019-07-29 16:00] VITALS: BP 106/66
--- NOTE | 2019-07-29 19:12 | NUR ---
NURSE NOTES: Report given to Marni/ Gill RNs. Patient awake and talkative, smiling. Bed in lowest , locked position and bed alarm set. Addendum: 07/29/19 at 1913 by Michael Peraza RN Call kristi in jannet.
--- NOTE | 2019-07-29 19:41 | NUR ---
NURSE NOTES: Received report from YVONNE Crowley. Patient is awake and responsive, breathing regular and unlabored with no distress noted at this time. Patient denies any pain or discomfort at this time. Bed is in lowest position, breaks engaged, and call light within reach at all times. Will continue to monitor.
--- NOTE | 2019-07-29 19:55 | General Progress Note ---
Assessment/Plan Problem List: (1) Altered mental status ICD Codes: R41.82 - Altered mental status, unspecified SNOMED: 126452214 (2) hyper glycemia (3) Sepsis ICD Codes: A41.9 - Sepsis, unspecified organism SNOMED: 17480155 Status: progressing Assessment/Plan: sugar is improving dc planning reviewed chart and labs niddm sepsis Subjective ROS Limited/Unobtainable: Yes Allergies: Coded Allergies: No Known Allergies (Unverified , 05/25/16) Objective Last 24 Hour Vital Signs Date Time Temp Pulse Resp B/P (MAP) Pulse Ox O2 Delivery O2 Flow Rate FiO2 07/29/19 17:14 106/66 07/29/19 16:00 72 07/29/19 16:00 98.1 63 18 106/66 (79) 97 07/29/19 12:00 60 07/29/19 11:28 96.8 69 18 104/51 (68) 97 07/29/19 09:00 Room Air 07/29/19 08:47 108/64 07/29/19 08:40 60 108/64 07/29/19 08:13 60 07/29/19 07:54 97.6 61 18 108/64 (79) 96 07/29/19 04:00 66 07/29/19 04:00 97.8 63 16 126/74 (91) 96 07/29/19 00:00 98.1 74 16 136/78 (97) 97 07/29/19 00:00 78 07/28/19 21:00 Room Air 07/28/19 20:00 98.2 82 18 100/65 (77) 98 07/28/19 20:00 99 Intake and Output 07/28/19 07/29/19 19:00 07:00 Intake Total 850 ml 260 ml Balance 850 ml 260 ml Intake Oral 850 ml 260 ml # Voids 3 2 # Bowel Movements 1 1 Height (Feet): 5 Height (Inches): 5.00 Weight (Pounds): 180 Cardiovascular: normal rate Respiratory/Chest: lungs clear Abdomen: soft Ramon Rashid MD Jul 29, 2019 19:55
[2019-07-29 20:00] VITALS: BP 121/76
[2019-07-29] MEDS: Atorvastatin 80mg tab ORAL SCH (20:25)
[2019-07-30] VITALS (7 sets, daily range): BP systolic 94–125; BP diastolic 45–80
[2019-07-30] MEDS: NovoLOG Insulin Flexpen SUBQ SCH ×4 (06:28→21:32)
--- NOTE | 2019-07-30 07:04 | NUR ---
HAND-OFF: Report given to YVONNE Crowley. Patient in stable condition, plan of care endorsed.
--- NOTE | 2019-07-30 07:20 | NUR ---
NURSE NOTES: Received report from YVONNE Grider. Patient asleep but awoke when at bedside adn stated 'good morning'. Denies pain or discomfort. Bed in lowest, locked postion with alarm on. Call berry in reach. offered water, refused. Condom cath in place with no leakage and asymptomatic. Skin intact, clean , dry. Patient appears alert and oriented with calm affect. Breathing easily on RA. NSR on tele. Per note placed last nite, patient is DC planning phase. Continuing plan of care.
[2019-07-30] MEDS: DULoxetine 30mg cap ORAL SCH (08:32)
[2019-07-30] MEDS: Tamsulosin 0.4mg cap ORAL SCH (08:33)
[2019-07-30] MEDS: Aspirin EC 81mg tab ORAL SCH (08:33)
[2019-07-30] MEDS: Lisinopril 20mg tab ORAL SCH (08:34)
[2019-07-30] MEDS: Vitamin D 400 INTLU TAB ORAL SCH (08:34)
[2019-07-30] MEDS: Ascorbic Acid 500mg tab ORAL SCH (08:34)
[2019-07-30] MEDS: Calcium Carbonate 500mg w/Vit D 200iu tab ORAL SCH ×2 (08:34→17:09)
[2019-07-30] MEDS: Multivitamin w/Minerals tab ORAL SCH (08:34)
--- NOTE | 2019-07-30 10:47 | NUR ---
NURSE NOTES: Patient moved next to RN station. Patient found in bed laying with head at foot of bed. Restless and talkative--patient repositoned in bed with pillow supports . Condom cath still in place (clean, dry , intact). Charting in room to ensure safety. Currently patient is lightly napping--bed alarm on.
--- NOTE | 2019-07-30 10:54 | NUR ---
NURSE NOTES: Ptient Blood pressure decreased but patient stated "not dizzy and I feel good". Continuing to monitor and recheck BP in 30mins Addendum: 07/30/19 at 1120 by Michael Peraza RN Dr Rashid at bedside--discussed decreased BP with this RN. See new order/changes to lisinopril. Addendum: 07/30/19 at 1158 by Michael Peraza RN Recheck of BP at noon: 95/65 patient still asymptomatic with NSR on tele and no co dizziness or lightheadedness.
--- NOTE | 2019-07-30 11:01 | General Progress Note ---
Assessment/Plan Problem List: (1) Altered mental status ICD Codes: R41.82 - Altered mental status, unspecified SNOMED: 655973851 (2) hyper glycemia (3) Sepsis ICD Codes: A41.9 - Sepsis, unspecified organism SNOMED: 34186011 Status: progressing Assessment/Plan: no acute events no fever check lytes and sugar reviewed chart and labs niddm sepsis Subjective ROS Limited/Unobtainable: Yes Allergies: Coded Allergies: No Known Allergies (Unverified , 05/25/16) Objective Last 24 Hour Vital Signs Date Time Temp Pulse Resp B/P (MAP) Pulse Ox O2 Delivery O2 Flow Rate FiO2 07/30/19 09:19 Room Air 07/30/19 08:34 75 116/80 07/30/19 08:34 116/80 07/30/19 08:00 74 07/30/19 08:00 98.1 75 20 116/80 (92) 98 07/30/19 04:00 82 07/30/19 04:00 97.5 68 16 125/76 (92) 99 07/30/19 00:00 97.7 78 16 100/58 (72) 98 07/30/19 00:00 74 07/29/19 21:00 Room Air 07/29/19 20:00 96.5 78 20 121/76 (91) 98 07/29/19 20:00 77 07/29/19 17:14 106/66 07/29/19 16:00 72 07/29/19 16:00 98.1 63 18 106/66 (79) 97 07/29/19 12:00 60 07/29/19 11:28 96.8 69 18 104/51 (68) 97 Intake and Output 07/29/19 07/30/19 19:00 07:00 Intake Total 600 ml Balance 600 ml Intake Oral 600 ml # Voids 3 3 # Bowel Movements 1 1 Height (Feet): 5 Height (Inches): 5.00 Weight (Pounds): 180 Neck: supple Cardiovascular: normal rate Respiratory/Chest: lungs clear Abdomen: soft Ramon Rashid MD Jul 30, 2019 11:01
--- NOTE | 2019-07-30 11:23 | Infectious Diseases Prog Note ---
Assessment/Plan Assessment/Plan IMPRESSION: Lactic acidosis. cholelithiasis. Diarrhea resolved negative C. Diff. Diabetes mellitus, hypertension, BPH, dementia, elevation in alkaline phosphatase. Altered mental status RECOMMENDATIONS: we will observe the patient off antibiotic. Subjective ROS Limited/Unobtainable: Yes Neurologic: Reports: confusion Allergies: Coded Allergies: No Known Allergies (Unverified , 05/25/16) Objective Vital Signs Last 24 Hour Vital Signs Date Time Temp Pulse Resp B/P (MAP) Pulse Ox O2 Delivery O2 Flow Rate FiO2 07/30/19 09:19 Room Air 07/30/19 08:34 75 116/80 07/30/19 08:34 116/80 07/30/19 08:00 74 07/30/19 08:00 98.1 75 20 116/80 (92) 98 07/30/19 04:00 82 07/30/19 04:00 97.5 68 16 125/76 (92) 99 07/30/19 00:00 97.7 78 16 100/58 (72) 98 07/30/19 00:00 74 07/29/19 21:00 Room Air 07/29/19 20:00 96.5 78 20 121/76 (91) 98 07/29/19 20:00 77 07/29/19 17:14 106/66 07/29/19 16:00 72 07/29/19 16:00 98.1 63 18 106/66 (79) 97 07/29/19 12:00 60 07/29/19 11:28 96.8 69 18 104/51 (68) 97 Height (Feet): 5 Height (Inches): 5.00 Weight (Pounds): 180 General Appearance: no acute distress HEENT: mucous membranes moist Respiratory/Chest: lungs clear Cardiovascular: normal rate Abdomen: soft, non tender Extremities: no edema Neurologic/Psychiatric: other - sleeping Current Medications Medications (Trade) Dose Ordered Sig/Mariza Route PRN Reason Start Time Stop Time Status Last Admin Dose Admin Acetaminophen (Tylenol) 650 mg Q6H PRN ORAL Mild Pain/Temp > 100.5 07/27/19 06:45 08/26/19 06:44 Ascorbic Acid (Vitamin C) 500 mg DAILY ORAL 07/27/19 09:00 08/26/19 08:59 07/30/19 08:34 Aspirin (Ecotrin) 81 mg DAILY ORAL 07/27/19 09:00 08/26/19 08:59 07/30/19 08:33 Atorvastatin Calcium (Lipitor) 80 mg BEDTIME ORAL 07/27/19 21:00 08/26/19 20:59 07/29/19 20:25 Calcium/Vitamin D (OsCal D) 1 tab BID ORAL 07/27/19 09:00 08/26/19 08:59 07/30/19 08:34 Dextrose (Dextrose 50%) 25 ml Q30M PRN IV Hypoglycemia 07/27/19 00:45 08/26/19 00:44 Dextrose (Dextrose 50%) 50 ml Q30M PRN IV Hypoglycemia 07/27/19 00:45 08/26/19 00:44 Duloxetine HCl (Cymbalta) 30 mg DAILY ORAL 07/27/19 09:00 08/26/19 08:59 07/30/19 08:32 Ferrous Sulfate (Feosol) 325 mg BID ORAL 07/27/19 09:00 08/26/19 08:59 07/30/19 08:33 Insulin Aspart (NovoLOG) BS control BEFORE MEALS AND HS SUBQ 07/27/19 06:30 08/26/19 06:29 07/30/19 06:28 Lisinopril (Prinivil) 20 mg DAILY ORAL 07/31/19 09:00 08/30/19 08:59 UNV Multivitamins Therapeutic (Therapeutic Multivitamin) 1 ea DAILY ORAL 07/27/19 09:00 08/26/19 08:59 07/30/19 08:34 Nifedipine (Procardia XL) 60 mg DAILY ORAL 07/27/19 09:00 08/26/19 08:59 07/30/19 08:34 Pantoprazole (Protonix) 40 mg DAILY@0630 ORAL 07/27/19 06:30 08/26/19 06:29 07/30/19 06:27 Quetiapine Fumarate (SEROquel) 25 mg Q6HR PRN ORAL For Anxiety 07/27/19 03:30 08/26/19 03:29 Tamsulosin HCl (Flomax) 0.4 mg DAILY ORAL 07/27/19 09:00 08/26/19 08:59 07/30/19 08:33 Vitamin D (Vitamin D) 1,000 intlu DAILY ORAL 07/27/19 09:00 08/26/19 08:59 07/30/19 08:34 Canelo Gann MD Jul 30, 2019 11:23
--- NOTE | 2019-07-30 13:54 | NUR ---
RD ASSESSMENT & RECOMMENDATIONS SEE CARE ACTIVITY FOR COMPLETE ASSESSMENT DAILY ESTIMATED NEEDS: Needs based on DM; 66kg adj 25-30 kcals/kg 7511-7133 total kcals 1-1.5 g protein/kg 66-99 g total protein 25-30 mL/kg 7420-7837 total fluid mLs NUTRITION DIAGNOSIS: Altered nutrition related lab values r/t Diabetes, AEB A1C 7.4, accuchecks (127-232), urine ketones 1+. CURRENT DIET: CCHO Low, Mechanical soft chopped. PO DIET RECOMMENDATIONS: CCHO Low, LOW NA (texture per SCALE ADJUSTER) RECOMMENDATIONS: 1) Obtain a calibrated bed scale wt/ standing if able 2) Monitor BG levels, possible need for long acting insulin 3) F/up w/ SCALE ADJUSTER 4) Rec mealtime supervision for L side deficits and ability to self feed
--- NOTE | 2019-07-30 19:23 | NUR ---
NURSE NOTES: Report given to James. Condom cath in place no leakage. Bed in lowest, locked position and alarm on. Patient smiling and talking to RNs with no sign of discomfort.
--- NOTE | 2019-07-30 19:48 | NUR ---
NURSE NOTES: Patient alert and oriented x1 to name only, primarily Ukrainian-speaking with no acute s/s of distress noted. IV site asymptomatic and patent on R hand 20g, saline lock. Bed in lowest position, bed alarm on. Call light and belongings within reach.
[2019-07-30] MEDS: Atorvastatin 80mg tab ORAL SCH (21:00)
[2019-07-31] VITALS: BP 110/65
[2019-07-31 04:00] VITALS: BP 107/68
[2019-07-31] MEDS: NovoLOG Insulin Flexpen SUBQ SCH ×2 (05:44→11:30)
--- NOTE | 2019-07-31 07:24 | NUR ---
HAND-OFF: Report given to YVONNE Nichols.
[2019-07-31 08:10] VITALS: BP 121/80
--- NOTE | 2019-07-31 08:34 | NUR ---
NURSE NOTES: pt in bed sleeping, pt has condom cath. Pt on grants assistant no signs of cardiac or respiratory distress at this time. Call light within reach. Bed locked and in lowest position. Will continue to monitor pt and follow plan of care.
[2019-07-31] MEDS ORDERED: Lisinopril 20mg tab ORAL SCH (09:00)
[2019-07-31] MEDS: Vitamin D 400 INTLU TAB ORAL SCH (10:30)
[2019-07-31] MEDS: Calcium Carbonate 500mg w/Vit D 200iu tab ORAL SCH (10:30)
[2019-07-31] MEDS: Multivitamin w/Minerals tab ORAL SCH (10:30)
[2019-07-31] MEDS: Tamsulosin 0.4mg cap ORAL SCH (10:31)
[2019-07-31] MEDS: DULoxetine 30mg cap ORAL SCH (10:31)
[2019-07-31] MEDS: Aspirin EC 81mg tab ORAL SCH (10:31)
[2019-07-31] MEDS: Ascorbic Acid 500mg tab ORAL SCH (10:32)
--- NOTE | 2019-07-31 11:16 | Infectious Diseases Prog Note ---
Assessment/Plan Assessment/Plan IMPRESSION: Lactic acidosis. cholelithiasis. Diarrhea resolved negative C. Diff. Diabetes mellitus, hypertension, BPH, dementia, elevation in alkaline phosphatase. Altered mental status RECOMMENDATIONS: we will observe the patient off antibiotic. Subjective ROS Limited/Unobtainable: Yes Constitutional: Denies: fever Respiratory: Reports: no symptoms Gastrointestinal/Abdominal: Reports: no symptoms Genitourinary: Reports: no symptoms Allergies: Coded Allergies: No Known Allergies (Unverified , 05/25/16) Objective Vital Signs Last 24 Hour Vital Signs Date Time Temp Pulse Resp B/P (MAP) Pulse Ox O2 Delivery O2 Flow Rate FiO2 07/31/19 10:32 121/80 07/31/19 10:31 73 121/80 07/31/19 08:10 98.7 73 20 121/80 (94) 95 07/31/19 04:00 68 07/31/19 04:00 98.2 72 17 107/68 (81) 97 07/31/19 00:00 81 07/31/19 00:00 98.5 70 18 110/65 (80) 98 07/30/19 21:00 Room Air 07/30/19 20:00 74 07/30/19 20:00 98.1 77 18 105/62 (76) 97 07/30/19 16:00 73 07/30/19 16:00 96.3 76 18 100/75 (83) 98 07/30/19 12:17 74 07/30/19 11:57 95/65 (75) 07/30/19 11:15 98.3 70 20 94/45 (61) 99 Height (Feet): 5 Height (Inches): 5.00 Weight (Pounds): 180 General Appearance: no acute distress HEENT: mucous membranes moist Respiratory/Chest: lungs clear Cardiovascular: normal rate Abdomen: soft, non tender Extremities: no edema Neurologic/Psychiatric: alert, responsive Current Medications Medications (Trade) Dose Ordered Sig/Mariza Route PRN Reason Start Time Stop Time Status Last Admin Dose Admin Acetaminophen (Tylenol) 650 mg Q6H PRN ORAL Mild Pain/Temp > 100.5 07/27/19 06:45 08/26/19 06:44 Ascorbic Acid (Vitamin C) 500 mg DAILY ORAL 07/27/19 09:00 08/26/19 08:59 07/31/19 10:32 Aspirin (Ecotrin) 81 mg DAILY ORAL 07/27/19 09:00 08/26/19 08:59 07/31/19 10:31 Atorvastatin Calcium (Lipitor) 80 mg BEDTIME ORAL 07/27/19 21:00 08/26/19 20:59 07/29/19 20:25 Calcium/Vitamin D (OsCal D) 1 tab BID ORAL 07/27/19 09:00 08/26/19 08:59 07/31/19 10:30 Dextrose (Dextrose 50%) 25 ml Q30M PRN IV Hypoglycemia 07/27/19 00:45 08/26/19 00:44 Dextrose (Dextrose 50%) 50 ml Q30M PRN IV Hypoglycemia 07/27/19 00:45 08/26/19 00:44 Duloxetine HCl (Cymbalta) 30 mg DAILY ORAL 07/27/19 09:00 08/26/19 08:59 07/31/19 10:31 Ferrous Sulfate (Feosol) 325 mg BID ORAL 07/27/19 09:00 08/26/19 08:59 07/31/19 10:31 Insulin Aspart (NovoLOG) BS control BEFORE MEALS AND HS SUBQ 07/27/19 06:30 08/26/19 06:29 07/31/19 05:44 Lisinopril (Prinivil) 20 mg DAILY ORAL 07/31/19 09:00 08/30/19 08:59 07/31/19 10:32 Multivitamins Therapeutic (Therapeutic Multivitamin) 1 ea DAILY ORAL 07/27/19 09:00 08/26/19 08:59 07/31/19 10:30 Nifedipine (Procardia XL) 60 mg DAILY ORAL 07/27/19 09:00 08/26/19 08:59 07/31/19 10:31 Pantoprazole (Protonix) 40 mg DAILY@0630 ORAL 07/27/19 06:30 08/26/19 06:29 07/31/19 05:43 Quetiapine Fumarate (SEROquel) 25 mg Q6HR PRN ORAL For Anxiety 07/27/19 03:30 08/26/19 03:29 07/30/19 21:31 Tamsulosin HCl (Flomax) 0.4 mg DAILY ORAL 07/27/19 09:00 12/7/19 08:59 07/31/19 10:31 Vitamin D (Vitamin D) 1,000 intlu DAILY ORAL 07/27/19 09:00 08/26/19 08:59 07/31/19 10:30 Canelo Gann MD Jul 31, 2019 11:16
--- NOTE | 2019-07-31 11:57 | NUR ---
: DISCHARGED PLANNED DISCUSSED DISCHARGE WITH MD PATIENT IS TO RETURN TO [facility] T:[phone] FOR NURSE TO NURSE REPORT ROOM# 4A [facility] LEFT A MESSAGE WITH LESLIE SOLORIO () T: [phone] [facility] CALLED FOR 1430 MANAGER AGENCY TIME
[2019-07-31 12:00] VITALS: BP 105/70
--- NOTE | 2019-07-31 12:44 | NUR ---
NURSE NOTES: Attempted to called for Magdalena, tried to call but number listed is incorrect.
--- NOTE | 2019-07-31 12:47 | NUR ---
SWALLOW/SPEECH THERAPY NOTE: SWALLOW EVAL RECEIVED AND CHART REVIEWED. PATIENT TO BE DISCHARGE PRIOR TO EVALUATION. FOLLOW UP AT SNF AND CAN DO OUTPT MOD BARIUM SWALLOW STUDY AN OUTPATIENT. Addendum: 07/31/19 at 1249 by BERNARDO MEDEL APPLICATION DEVELOPMENT DIRECTOR REFERRED FOR SWALLOW EVALUATION BY DR OJEDA, SEE FULL REPORT. DYSPHAGIA RISK FACTORS FOR THIS 68 Y.O. 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 RELEVANT COMORBIDITIES: HTN PER POLST OK TO HAVE INTERMEDIATE TUBE FEEDINGS IF NEEDS AT SNF ON A CC/RCS REG TEXTURE AND THIN LIQUIDS WITH PROSTAT [place] [facility] [place] [facility] MECH SOFT CHOPPED AND THIN LIQUIDS 75-100% INTAKE BUT THEY [facility] LOW NA DIET TYPE. PER RNANG, PATIENT SLEEPY NOW AND SHE FEELS SWALLOW EVAL SHOULD BE COMPLETED LATER, SHE WILL CALL ME. NO OVERT S/S OF ASPIRATION OBSERVED. PATIENT BEING D/C FROM HOSPITAL SO NOT ABLE TO COMPLETED BEDSIDE SWALLOW EVAL. F/UP AT SNF FOR SWALLOW EVAL AND OP FOR MOD BARIUM SWALLOW STUDY.
--- NOTE | 2019-07-31 13:48 | NUR ---
NURSE NOTES: called and gave report to Nerissa at [facility]. Pt will be p/u around 1430 from hospital. Pt assigned room is 4A. Family friend was notified about DC around 11am, pt not available presently at work. Family's friend's name Astrid Yee.
--- NOTE | 2019-07-31 14:57 | NUR ---
NURSE NOTES: pt left via gurney in stable condition. monitor car operator off no signs of shortness of breath or cardiac signs at time of DC were present. Pt IV was DC, sit is not bleeding. Belonging were given to ambulance personnel. Pt unable to sign belonging sheet. V/S normal at time of discharge. Pt folder with pt history and was given to ambulance personnel. Pt was explained in [place] DC instructions, pt verbalized understanding of instructions.
--- NOTE | 2019-07-31 20:45 | Progress Note ---
DATE: 07/31/2019 SUBJECTIVE: The patient is doing well and cooperative. No behavior issues noted. The patient is awaiting discharge, calm, and cooperative. MENTAL STATUS EXAMINATION: The patient is alert and oriented times self and place. Mood is neutral. Affect is constricted. Thought process is concrete. Thought content, no suicidal or homicidal ideations. Delusional. Cognition is impaired. Insight and judgment is impaired. ASSESSMENT: Stable. PLAN: 1. We will continue current psychotropic medications. 2. Provide the patient with reality orientation and supportive therapy. Olivia Ortega M.D. DR: JUAN F JOB#: [id number] CC:
--- NOTE | 2019-08-01 12:23 | Discharge Summary ---
Discharge Summary Discharge Summary _ DATE OF ADMISSION: 07/26/2019 DATE OF DISCHARGE: 07/31/2019 DISCHARGED BY: Dr Rashid REASON FOR ADMISSION: 68 years old male with past medical history of hypertension, diabetes mellitus, cerebrovascular accident with residual left-sided weakness, anemia, was sent from the shelter facility due to altered mental status. Upon evaluation vital signs revealed mild tachycardia 104 , otherwise stable. Laboratory work-up revealed no leukocytosis, hemoglobin 11.7, hematocrit 36.5, platelet count 288. Stable electrolytes and renal parameters. Glucose 136. Lactic acid 2.3. Stable LFT. Troponin negative. Albumin 3.7. Urinalysis revealed no evidence of urinary tract infection, +1 protein, +1 ketones. Chest x-ray revealed no acute cardiopulmonary pathology. Patient started on IV fluids and admitted for further management. CONSULTANTS: ID specialist Dr. Navarro psychiatrist [facility] COURSE: Patient admitted to telemetry floor. Abdominal ultrasound revealed cholelithiasis, but was negative for dilated bile ducts. Liver demonstrated diffuse increased echogenicity, consistent with diffuse hepatocellular disease, most likely fatty. Patient developed diarrhea. Stool for C. difficile was negative. Diarrhea resolved Blood cultures were negative. Patient remained afebrile. ID specialist recommended to keep patient off antibiotics. Psychiatrist followed and optimized psychiatric medication regimen. Reality orientation and supportive therapy provided. SNF medication resumed. Blood pressure was managed with ANGELITO inhibitor and calcium channel emeterio. Antiplatelet therapy with aspirin and statin continued. GI prophylaxis provided. Blood sugar was managed with sliding scale of insulin. Metformin was hold. Lactic acidosis was likely due to metformin. Repeated lactic acid 3.2 , hold metformin , continue sliding scale of insulin at the facility. Hemoglobin A1c 7.4. Flomax continued. Supportive care provided. Patient clinically stabilized and was ready for transfer back to shelter facility for continuation of care FINAL DIAGNOSES: Acute metabolic encephalopathy Lactic acidosis Dementia Cholelithiasis Diarrhea - resolved/stool studies negative Diabetes mellitus Hypertension BPH DISCHARGE MEDICATIONS: See Medication Reconciliation list. DISCHARGE INSTRUCTIONS: Patient was discharged to the shelter facility. Follow up with medical doctor at the facility. I have been assigned to dictate discharge summary for this account. I was not involved in the patient's management. Radha Barboza NP Aug 01, 2019 12:23
== END 2019-07-31 16:29 | DRG 640 ==
LOC: EDBD 19:00 → EMR 19:16 → 2E 19:25 → EDBEDREQ 20:10 → 2E 07-27 05:32
DX: E87.2 Acidosis (principal); G93.41 Metabolic encephalopathy; I69.354 Hemiplegia and hemiparesis following cerebral infarction affecting left non-dominant side; T38.3X5A Adverse effect of insulin and oral hypoglycemic [antidiabetic] drugs, initial encounter; E78.5 Hyperlipidemia, unspecified; E11.9 Type 2 diabetes mellitus without complications; I10 Essential (primary) hypertension; K21.9 Gastro-esophageal reflux disease without esophagitis; N40.0 Benign prostatic hyperplasia without lower urinary tract symptoms; K80.20 Calculus of gallbladder without cholecystitis without obstruction; R19.7 Diarrhea, unspecified; G30.9 Alzheimer's disease, unspecified; F02.80 Dementia in other diseases classified elsewhere, unspecified severity, without behavioral disturbance, psychotic disturbance, mood disturbance, and anxiety; Z86.14 Personal history of Methicillin resistant Staphylococcus aureus infection
CPT/HCPCS: 36415; 71045; 76700; 80053; 81003; 82550; 82553; 82962; 83036; 83605; 83735; 84100; 84484; 85025; 87040; 87081; 87324; 93005; 96365; 96372; 96375; 99285; J1815; J7030